=== PATIENT | female | born 1960 | race African-American/Black ===

== ENCOUNTER → 2016-08-02 | Outpatient (CLI) | payer MEDICAID | END | disposition home or self-care (01) | LOC: LABWHC1 07:11 | PROVIDERS: ATTEND Family Medicine | DX: E03.9 Hypothyroidism, unspecified (principal) | CPT/HCPCS: 36415; 84439; 84443 ==

== ENCOUNTER → 2016-08-02 | Outpatient (CLI) | payer MEDICAID ==
--- NOTE | 2016-08-03 09:31 | MM ---
Reason for exam: screening (asymptomatic). Last mammogram was performed 1 year and 1 month ago. History: Patient is postmenopausal. Family history of breast cancer in mother at age 53. Benign left mammotome panel of the left breast, July 26, 2010. Took hormonal contraceptives for 5 years beginning at age 22. Physical Findings: A clinical breast exam by your physician is recommended on an annual basis and results should be correlated with mammographic findings. MG Screening Mammo w CAD Bilateral CC and MLO view(s) were taken. Prior study comparison: June 21, 2015, bilateral MG 3d diag mammo w/cad JG. November 07, 2013, CAD bilateral diagnostic mammogram. There are scattered fibroglandular densities. There is no discrete abnormality. No significant changes when compared with prior studies. ASSESSMENT: Negative, BI-RAD 1 RECOMMENDATION: Routine screening mammogram of both breasts in 1 year.
== END | disposition home or self-care (01) ==
LOC: RADMAMWWP 06:53
PROVIDERS: ATTEND Family Medicine
DX: Z12.31 Encounter for screening mammogram for malignant neoplasm of breast (principal)

== ENCOUNTER → 2017-09-03 | Outpatient (CLI) | payer MEDICAID ==
--- NOTE | 2017-09-05 07:44 | MM ---
Reason for exam: screening (asymptomatic). Last mammogram was performed 1 year and 1 month ago. History: Patient is postmenopausal. Family history of breast cancer in mother at age 53. Benign left mammotome panel of the left breast, July 26, 2010. Took hormonal contraceptives for 5 years beginning at age 22. Physical Findings: A clinical breast exam by your physician is recommended on an annual basis and results should be correlated with mammographic findings. MG Screening Mammo w CAD Bilateral CC and MLO view(s) were taken. Prior study comparison: August 02, 2016, bilateral MG screening mammo w CAD. June 21, 2015, bilateral MG 3d diag mammo w/cad JG. The breast tissue is almost entirely fat. No suspicious abnormality. Left breast biopsy marker noted. No significant changes when compared with prior studies. ASSESSMENT: Negative, BI-RAD 1 RECOMMENDATION: Routine screening mammogram of both breasts in 1 year.
== END | disposition home or self-care (01) ==
LOC: RADMAMWWP 13:19
PROVIDERS: ATTEND Family Medicine
DX: Z12.31 Encounter for screening mammogram for malignant neoplasm of breast (principal)
CPT/HCPCS: 77067

== ENCOUNTER 2017-09-28 09:30 | Observation (INO) | payer MEDICAID ==
[2017-09-28] MEDS ORDERED: SODIUM CHLORIDE 0.9% 1,000 ML IV STA ×2 (10:02)
[2017-09-28] MEDS ORDERED: ASPIRIN 81 MG PO STA (10:02)
--- NOTE | 2017-09-28 10:07 | ED ---
URI HPI - General Source: patient, RN notes reviewed, old records reviewed Mode of arrival: wheelchair Limitations: no limitations <Susan Mackay - Last Filed: 09/28/17 12:31> <George Sawyer - Last Filed: 09/28/17 13:24> - General Chief Complaint: Upper Respiratory Infection Stated Complaint: FLU SYMPTOMS, CHEST PAIN Time Seen by Provider: 09/28/17 09:45 - History of Present Illness Initial Comments: This patient is a 57-year-old female presented to emergency Department chief complaint of cough congestion since Sunday. She went to [facility] on Sunday started on Levaquin, cough syrup and Claritin. She is told she has a sinus infection. They did no testing at that time. Patient reports that she started to develop some chest pain on Sunday as well. She reports it feels like a heaviness on her chest. She seems to related to different than just pain from coughing. Patient reports that she did take a nitro yesterday evening. She states that her cough has been nonproductive. 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 She states that she has history of hypertension and hyperlipidemia. No diabetes. No history of cardiac history of of herself at this time. Patient states that she has been thinks what dizzy lightheaded. She denies any specific abdominal pain, she has felt nauseated but has had no vomiting. She did have some diarrhea yesterday as well. (Susan Mackay) - Related Data Home Medications Medication Instructions Recorded Confirmed Ergocalciferol (Vitamin D2) 50,000 unit PO MO 01/25/15 09/28/17 [Drisdol] Multivitamins, Thera [Multivitamin 1 tab PO DAILY 01/25/15 09/28/17 (formulary)] Biotin 5 mg PO DAILY 09/28/17 09/28/17 Furosemide [Lasix] 40 mg PO DAILY 09/28/17 09/28/17 Levofloxacin [Levaquin] 500 mg PO DAILY 09/28/17 09/28/17 Levothyroxine Sodium [Synthroid] 175 mcg PO DAILY 09/28/17 09/28/17 Metoprolol Tartrate [Lopressor] 25 mg PO BID 09/28/17 09/28/17 Previous Rx's Medication Instructions Recorded Aspirin 81 mg PO DAILY #1 chewable 01/26/15 Nitroglycerin Sl Tabs [Nitrostat] 0.4 mg SUBLINGUAL Q5M PRN #25 tab 01/26/15 Allergies Allergy/AdvReac Type Severity Reaction Status Date / Time No Known Allergies Allergy Verified 09/28/17 10:16 Review of Systems ROS Other: All systems not noted in ROS Statement are negative. <Susan Mackay - Last Filed: 09/28/17 12:31> ROS Other: All systems not noted in ROS Statement are negative. <SilverioGeorge - Last Filed: 09/28/17 13:24> ROS Statement: Those systems with pertinent positive or pertinent negative responses have been documented in the HPI. Past Medical History Past Medical History: Chest Pain / Angina, GERD/Reflux, Hyperlipidemia, Sleep Apnea/CPAP/BIPAP, Thyroid Disorder Additional Past Medical History / Comment(s): 10/11/15 Pt presented to [facility] ER with having had chest pain yesterday, intermittent and retrosternal- a tightness. Pain started again this morning going across lower sternum. Pt is admitted with UA chest pain. Other HX: 12/2014 lexiscan stress test negative and echo showed preserved L ventricular function with EF 60-65%, sleep apnea with CPAP set at 12., cervical disc protrusion C2 and C3, colon polyps-hi grade dysplasia with removal, intermittent bilateral hand numbness and tingling, hypothyroidism, sinusitis, Salazar's Palsey yrs ago. History of Any Multi-Drug Resistant Organisms: None Reported Past Surgical History: Adenoidectomy, Breast Surgery, Hernia Repair, Hysterectomy, Tonsillectomy, Tubal Ligation Additional Past Surgical History / Comment(s): Umbilical hernia repair, colonoscopies with polypectomies, L breast core bx with microchipping. Past Anesthesia/Blood Transfusion Reactions: No Reported Reaction Past Psychological History: No Psychological Hx Reported Smoking Status: Current every day smoker Past Alcohol Use History: None Reported Past Drug Use History: None Reported - Past Family History Father Family Medical History: Cancer, Deep Vein Thrombosis (DVT), Vascular Disorder Additional Family Medical History / Comment(s): Father is alive and 89yrs old. He has had 2 cancers-sinus and pharyngeal. He has a peg tube. He has had bilateral carotid endartectomies, has jean-claude filter. Mother Family Medical History: Cancer Additional Family Medical History / Comment(s): Mother had breast cancer with mastectomy. She from a cancerous mass in her throat. <Susan Mackay - Last Filed: 09/28/17 12:31> General Exam Limitations: no limitations General appearance: alert, in no apparent distress Head exam: Present: atraumatic, normocephalic, normal inspection Eye exam: Present: normal appearance, PERRL, EOMI. Absent: scleral icterus, conjunctival injection, periorbital swelling ENT exam: Present: normal exam, mucous membranes moist Neck exam: Present: normal inspection. Absent: tenderness, meningismus, lymphadenopathy Respiratory exam: Present: normal lung sounds bilaterally, other (Patient has a significant cough. Lungs are clear to auscultation at this time.). Absent: respiratory distress, wheezes, rales, rhonchi, stridor Cardiovascular Exam: Present: regular rate, normal rhythm, normal heart sounds. Absent: systolic murmur, diastolic murmur, rubs, gallop, clicks GI/Abdominal exam: Present: soft, normal bowel sounds. Absent: distended, tenderness, guarding, rebound, rigid Extremities exam: Present: normal inspection, full ROM, normal capillary refill. Absent: tenderness, pedal edema, joint swelling, calf tenderness Back exam: Present: normal inspection Neurological exam: Present: alert, oriented X3, CN II-XII intact Psychiatric exam: Present: normal affect, normal mood Skin exam: Present: warm, dry, intact, normal color. Absent: rash <Susan Mackay - Last Filed: 09/28/17 12:31> <George Sawyer - Last Filed: 09/28/17 13:24> - General Exam Comments Initial Comments: This patient is a pleasant 57-year-old female. No distress. (Susan Mackay) Vital Signs 09/28/17 09/28/17 09:36 12:34 Temperature 97.7 F Pulse Rate 75 54 L Respiratory 18 18 Rate Blood Pressure 123/62 154/61 O2 Sat by Pulse 100 100 Oximetry Medical Decision Making - Lab Data Result diagrams: 09/28/17 10:27 09/28/17 10:27 - Radiology Data Radiology results: report reviewed <Susan Mackay - Last Filed: 09/28/17 12:31> - Lab Data Result diagrams: 09/28/17 10:27 09/28/17 10:27 <George Sawyer - Last Filed: 09/28/17 13:24> - Medical Decision Making This is a 57-year-old female with chief complaint of cough, and chest heaviness for the past week. Patient reports that the chest pain started on Sunday. She did take a nitro yesterday and thought she had some relief with it. At this time patient did have a significant cough however lungs are clear auscultation. Patient's lab work was all reviewed and within normal limits. Patient was given an aspirin. Patient's EKG shows no acute abnormalities. Troponins are negative. Chest x-ray shows negative for any acute process. Flu testing is negative. Patient continues to complain of chest heaviness. I will start the patient on Nitropaste. Discussed with Dr. Sawyer who will discuss with Dr. henley. [place] the patient for observation with serial troponins, and current cell with cardiology. Patient will be also treated as a bronchitis as well as continuing her by mouth antibiotics and breathing treatments. ( Susan Mackay) Patient was reevaluated and updated. Patient still had some mild heaviness in her chest. Chart was reviewed. Case was discussed in detail with Dr. Palma, who will admit for Dr. henley, covering for Dr. Iyer. (George Sawyer) - Lab Data Lab Results 09/28/17 09/28/17 09/28/17 Range/Units 10:27 10:27 10:27 WBC 5.5 (3.8-10.6) k/uL RBC 4.73 (3.80-5.40) m/uL Hgb 12.5 (11.4-16.0) gm/dL Hct 40.7 (34.0-46.0) % MCV 85.9 (80.0-100.0) fL MCH 26.4 (25.0-35.0) pg MCHC 30.7 L (31.0-37.0) g/dL RDW 14.0 (11.5-15.5) % Plt Count 206 (150-450) k/uL Neutrophils % 44 % Lymphocytes % 46 % Monocytes % 5 % Eosinophils % 2 % Basophils % 1 % Neutrophils # 2.4 (1.3-7.7) k/uL Lymphocytes # 2.5 (1.0-4.8) k/uL Monocytes # 0.3 (0-1.0) k/uL Eosinophils # 0.1 (0-0.7) k/uL Basophils # 0.0 (0-0.2) k/uL PT (9.0-12.0) sec INR (<1.2) APTT (22.0-30.0) sec D-Dimer (<0.60) mg/L FEU Sodium 143 (137-145) mmol/L Potassium 4.1 (3.5-5.1) mmol/L Chloride 104 (98-107) mmol/L Carbon Dioxide 27 (22-30) mmol/L Anion Gap 12 mmol/L BUN 12 (7-17) mg/dL Creatinine 0.92 (0.52-1.04) mg/dL Est GFR (MDRD) Af Amer >60 (>60 ml/min/1.73 sqM) Est GFR (MDRD) Non-Af >60 (>60 ml/min/1.73 sqM) Glucose 97 (74-99) mg/dL Plasma Lactic Acid Kelvin (0.7-2.0) mmol/L Calcium 9.7 (8.4-10.2) mg/dL Magnesium 1.9 (1.6-2.3) mg/dL Total Bilirubin 0.5 (0.2-1.3) mg/dL AST 19 (14-36) U/L ALT 25 (9-52) U/L Alkaline Phosphatase 107 (38-126) U/L Total Creatine Kinase 67 (30-135) U/L CK-MB (CK-2) <0.2 (0.0-2.4) ng/mL CK-MB (CK-2) Rel Index Troponin I <0.012 (0.000-0.034) ng/mL NT-Pro-B Natriuret Pep pg/mL Total Protein 7.2 (6.3-8.2) g/dL Albumin 4.1 (3.5-5.0) g/dL Influenza Type A RNA (Not Detectd) Influenza Type B (PCR) (Not Detectd) 09/28/17 09/28/17 09/28/17 Range/Units 10:27 10:27 10:27 WBC (3.8-10.6) k/uL RBC (3.80-5.40) m/uL Hgb (11.4-16.0) gm/dL Hct (34.0-46.0) % MCV (80.0-100.0) fL MCH (25.0-35.0) pg MCHC (31.0-37.0) g/dL RDW (11.5-15.5) % Plt Count (150-450) k/uL Neutrophils % % Lymphocytes % % Monocytes % % Eosinophils % % Basophils % % Neutrophils # (1.3-7.7) k/uL Lymphocytes # (1.0-4.8) k/uL Monocytes # (0-1.0) k/uL Eosinophils # (0-0.7) k/uL Basophils # (0-0.2) k/uL PT 10.0 (9.0-12.0) sec INR 1.0 (<1.2) APTT 27.5 (22.0-30.0) sec D-Dimer 0.41 (<0.60) mg/L FEU Sodium (137-145) mmol/L Potassium (3.5-5.1) mmol/L Chloride (98-107) mmol/L Carbon Dioxide (22-30) mmol/L Anion Gap mmol/L BUN (7-17) mg/dL Creatinine (0.52-1.04) mg/dL Est GFR (MDRD) Af Amer (>60 ml/min/1.73 sqM) Est GFR (MDRD) Non-Af (>60 ml/min/1.73 sqM) Glucose (74-99) mg/dL Plasma Lactic Acid Kelvin (0.7-2.0) mmol/L Calcium (8.4-10.2) mg/dL Magnesium (1.6-2.3) mg/dL Total Bilirubin (0.2-1.3) mg/dL AST (14-36) U/L ALT (9-52) U/L Alkaline Phosphatase (38-126) U/L Total Creatine Kinase (30-135) U/L CK-MB (CK-2) (0.0-2.4) ng/mL CK-MB (CK-2) Rel Index Troponin I (0.000-0.034) ng/mL NT-Pro-B Natriuret Pep 29 pg/mL Total Protein (6.3-8.2) g/dL Albumin (3.5-5.0) g/dL Influenza Type A RNA Not Detected (Not Detectd) Influenza Type B (PCR) Not Detected (Not Detectd) 09/28/17 Range/Units 10:27 WBC (3.8-10.6) k/uL RBC (3.80-5.40) m/uL Hgb (11.4-16.0) gm/dL Hct (34.0-46.0) % MCV (80.0-100.0) fL MCH (25.0-35.0) pg MCHC (31.0-37.0) g/dL RDW (11.5-15.5) % Plt Count (150-450) k/uL Neutrophils % % Lymphocytes % % Monocytes % % Eosinophils % % Basophils % % Neutrophils # (1.3-7.7) k/uL Lymphocytes # (1.0-4.8) k/uL Monocytes # (0-1.0) k/uL Eosinophils # (0-0.7) k/uL Basophils # (0-0.2) k/uL PT (9.0-12.0) sec INR (<1.2) APTT (22.0-30.0) sec D-Dimer (<0.60) mg/L FEU Sodium (137-145) mmol/L Potassium (3.5-5.1) mmol/L Chloride (98-107) mmol/L Carbon Dioxide (22-30) mmol/L Anion Gap mmol/L BUN (7-17) mg/dL Creatinine (0.52-1.04) mg/dL Est GFR (MDRD) Af Amer (>60 ml/min/1.73 sqM) Est GFR (MDRD) Non-Af (>60 ml/min/1.73 sqM) Glucose (74-99) mg/dL Plasma Lactic Acid Kelvin 1.1 (0.7-2.0) mmol/L Calcium (8.4-10.2) mg/dL Magnesium (1.6-2.3) mg/dL Total Bilirubin (0.2-1.3) mg/dL AST (14-36) U/L ALT (9-52) U/L Alkaline Phosphatase (38-126) U/L Total Creatine Kinase (30-135) U/L CK-MB (CK-2) (0.0-2.4) ng/mL CK-MB (CK-2) Rel Index Troponin I (0.000-0.034) ng/mL NT-Pro-B Natriuret Pep pg/mL Total Protein (6.3-8.2) g/dL Albumin (3.5-5.0) g/dL Influenza Type A RNA (Not Detectd) Influenza Type B (PCR) (Not Detectd) 09/28/17 11:22 Patient's EKG performed at 1008 shows normal sinus rhythm with a normal EKG. Ventricular rate of [address] interval 120 ms. QRS ration 86 no seconds. QT QTc is 394/418 ms. (Susan Mackay) - Radiology Data Chest x-ray is negative for any acute process. (Susan Mackay) Disposition Time of Disposition: 12:34 <Susan Mackay - Last Filed: 09/28/17 12:31> <George Sawyer - Last Filed: 09/28/17 13:24> Clinical Impression: Chest pain, Bronchitis, Unstable angina pectoris Disposition: ADMITTED IP TO THIS HOSP Condition: Stable Referrals: Jason Iyer DO [Primary Care Provider] - 1-2 days
[2017-09-28 10:45] LABS: Basophils % (A) 1 %; Eosinophils # (A) 0.1 k/uL (0-0.7); Eosinophils % (A) 2 %; HCT 40.7 % (34.0-46.0); HGB 12.5 gm/dL (11.4-16.0); Lymphocytes # (A) 2.5 k/uL (1.0-4.8); Lymphocytes % (A) 46 %; MCH 26.4 pg (25.0-35.0); MCHC 30.7 g/dL (31.0-37.0); MCV 85.9 fL (80.0-100.0); Mean Platelet Volume 8.3; Monocytes # (A) 0.3 k/uL (0-1.0); Monocytes % (A) 5 %; Neutrophils # (A) 2.4 k/uL (1.3-7.7); Neutrophils % (A) 44 %; Platelet Count 206 k/uL (150-450); RBC 4.73 m/uL (3.80-5.40); WBC 5.5 k/uL (3.8-10.6)
[2017-09-28 10:56] LABS: ALT 25 U/L (9-52); AST 19 U/L (14-36); Albumin 4.1 g/dL (3.5-5.0); Alkaline Phosphatase 107 U/L (38-126); Anion Gap 12 mmol/L; Blood Urea Nitrogen 12 mg/dL (7-17); Calcium 9.7 mg/dL (8.4-10.2); Carbon Dioxide 27 mmol/L (22-30); Chloride 104 mmol/L (98-107); Glucose 97 mg/dL (74-99); Potassium 4.1 mmol/L (3.5-5.1); Sodium 143 mmol/L (137-145); Total Bilirubin 0.5 mg/dL (0.2-1.3); Total Protein 7.2 g/dL (6.3-8.2)
[2017-09-28 10:57] LABS: D-Dimer 0.41 mg/L FEU (<0.60); Partial Thromboplastin Time 27.5 sec (22.0-30.0)
[2017-09-28 11:11] LABS: Creatine Kinase 67 U/L (30-135)
--- NOTE | 2017-09-28 11:21 | XR ---
EXAMINATION TYPE: XR chest 2V DATE OF EXAM: 09/28/2017 COMPARISON: 10/11/2015 TECHNIQUE: PA and lateral views submitted. HISTORY: Cough and flulike symptoms FINDINGS: The lungs are clear and there is no pneumothorax, pleural effusion, or focal pneumonia. Arthropathy of the right shoulder noted. Correlate for chronic rotator cuff disease. Atrophic change of the spin e. IMPRESSION: 1. No acute process.
[2017-09-28 11:23] LABS: Creatine Kinase MB <0.2 ng/mL (0.0-2.4); Troponin I <0.012 ng/mL (0.000-0.034)
[2017-09-28] MEDS ORDERED: PROMETHAZ-COD 6.25-10 MG/5 ML 5 ML CUP PO STA (11:23)
[2017-09-28] MEDS ORDERED: MORPHINE SULFATE 4 MG/ML SYRINGE IV PRN (12:34)
[2017-09-28] MEDS ORDERED: NITROGLYCERIN SL TABS 0.4 MG TAB SUBLINGUAL PRN (12:34)
[2017-09-28] MEDS ORDERED: MORPHINE ORAL SOLN 10 MG/5 ML CUP PO PRN (14:32)
[2017-09-28] MEDS ORDERED: LEVOFLOXACIN 500 MG TAB PO SCH (15:00)
[2017-09-28] MEDS: NITROGLYCERIN OINT 1 INCH/GM PACKET TOPICAL SCH ×2 (15:01→18:32)
[2017-09-28] MEDS: ALBUTEROL NEBULIZED 2.5 MG/3 ML INHALATION SCH ×3 (15:25→19:02)
[2017-09-28 16:39] LABS: Creatine Kinase 62 U/L (30-135)
[2017-09-28 16:52] LABS: Creatine Kinase MB <0.2 ng/mL (0.0-2.4); Troponin I <0.012 ng/mL (0.000-0.034)
[2017-09-28] MEDS ORDERED: ALBUTEROL NEBULIZED 2.5 MG/3 ML INHALATION PRN (18:45)
[2017-09-28] MEDS: METOPROLOL TARTRATE 25 MG TAB PO SCH (20:01)
[2017-09-28] MEDS ORDERED: ATORVASTATIN 10 MG TAB PO SCH (21:00)
--- NOTE | 2017-09-28 21:59 | HP ---
HISTORY AND PHYSICAL DATE OF SERVICE: 09/28/2017 CHIEF COMPLAINTS: Chest pain and upper respiratory infection. HISTORY OF PRESENT ILLNESS: This 57-year-old woman with a past medical history of multiple medical problems including chest pain, GERD, hyperlipidemia, history of sleep apnea, history of adenoidectomy, history of breast surgery, history of nicotine dependence being followed by Dr. Iyer in the outpatient setting, not feeling well over the past several days according to her. The patient is having a cough and congestion since Sunday. The patient is taking Levaquin and Claritin. Today the patient does have heaviness in the chest which is increasing with coughing and the patient came to [facility] and admitted to the hospital further evaluation and treatment. On admission the EKG was done which showed nonspecific ST-T changes and the chest x-ray was normal. The patient had a previous stress test and the basic labs and troponins are normal. Influenza is negative. Patient admitted for further evaluation and treatment. There is no history of fever, rigors, chills. No history of headache or loss of conscious or seizures. PAST MEDICAL HISTORY: History of GERD, hyperlipidemia, sleep apnea, hypothyroidism. MEDICATIONS: Home medications are: 1. Lipitor 10 mg q.h.s. 2. Nitrostat 0.4 sublingual p.r.n. 3. Multivitamins supplements. 4. Lopressor 25 mg p.o. b.i.d. 5. Synthroid 117 mcg p.o. daily. 6. Levaquin 500 mg. 7. Lasix 40 mg. 8. Vitamin D2 50,000 p.o. Sunday. 9. Biotin 5 mg. 10.Aspirin 81 mg p.o. daily. ALLERGIES: None. FAMILY HISTORY: History of cancer, DVT, vascular disease in the family. SOCIAL HISTORY: History of smoking currently. No history of alcohol intake. REVIEW OF SYSTEMS: ENT: No diminished hearing or vision. Cardiovascular: S1, S2 muffled. Respiratory: Breath sounds diminished in the bases. GI: As mentioned earlier. : No dysuria. Central nervous system: No numbness or weakness. ALLERGY/IMMUNOLOGY: No asthma or hayfever. Musculoskeletal: As mentioned earlier. HEMATOLOGY/ONCOLOGY: No history of anemia. Endocrine: No nausea or vomiting, diabetes, hypothyroidism. CONSTITUTIONAL: As mentioned earlier. Dermatology: Negative. Rheumatology: Negative. Psychiatric: as mentioned earlier. EXAMINATION: The patient is alert and oriented times three. Pulse 63, blood pressure 120/60, respiration 17, temp 98.2, pulse ox 100% on room air. HEENT conjunctivae normal. Oral mucosa moist. Neck is no jugular venous distention. No carotid bruit. No lymph node enlargement. Cardiovascular: S1, S2, no S3, no S4. Respiratory: Breath sounds diminished in the bases. A few rhonchi and no crackles. ABDOMEN: Soft, nontender. No mass palpable. Legs: No edema and no swelling. NERVOUS SYSTEM: Higher functions as mentioned earlier. Moves all 4 limbs. No focal motor or sensory deficits. Lymphatics: No lymph nodes palpable in the neck, axillae or groin. Skin no ulcer, rash or bleeding. LABS: WBC 5.5, hemoglobin 12.5. CMP within normal limits. ASSESSMENT: 1. Chest pain possible unstable angina rule out pleuritic pain. 2. Upper respiratory infection recently. 3. History of gastroesophageal reflux disease. 4. Hyperlipidemia. 5. Sleep apnea. 6. Hypothyroidism. 7. Degenerative joint disease. 8. History of nicotine dependence. RECOMMENDATIONS AND DISCUSSION: This 57-year-old woman who presented with multiple complex medical issues, we will monitor the patient closely. Rule out myocardial infarction. Cardiology consultation. Possible stress test. Guarded prognosis because of multiple complex medical issues. Further recommendations to follow. MMODL / IJN: [id number] /
[2017-09-28 22:47] LABS: Creatine Kinase 60 U/L (30-135)
[2017-09-28 23:01] LABS: Creatine Kinase MB <0.2 ng/mL (0.0-2.4); Troponin I <0.012 ng/mL (0.000-0.034)
[2017-09-29] MEDS: NITROGLYCERIN OINT 1 INCH/GM PACKET TOPICAL SCH ×2 (00:18→04:37)
[2017-09-29 01:13] LABS: Cholesterol 213 mg/dL (<200); HDL Cholesterol 27 mg/dL (40-60); LDL Cholesterol,Calculated 144 mg/dL (0-99); Triglycerides 208 mg/dL (<150)
[2017-09-29] MEDS ORDERED: LEVOTHYROXINE 100 MCG TAB PO SCH (06:30)
[2017-09-29] MEDS ORDERED: LEVOTHYROXINE 75 MCG TAB PO SCH (06:30)
[2017-09-29] MEDS ORDERED: NON-FORMULARY DRUG (Levothyroxine Sodium [Synthroid] 175 MCG) PO SCH (09:00)
[2017-09-29] MEDS ORDERED: FUROSEMIDE 40 MG TAB PO SCH (09:00)
[2017-09-29] MEDS ORDERED: ASPIRIN 325 MG TAB PO SCH (09:00)
[2017-09-29] MEDS ORDERED: NON-FORMULARY DRUG (Biotin [Biotin] 5 MG) PO SCH (09:00)
--- NOTE | 2017-09-29 09:35 | P.CRDCN ---
History of Present Illness Consult date: 09/29/17 Requesting physician: Selam Palma Consult reason: chest pain Chief complaint: Chest pain History of present illness: This is a pleasant 57-year-old -B[place] female with history of nicotine dependence, hyperlipidemia, family history of premature coronary artery disease , sleep apnea, GERD, hypothyroidism, patient is also known to have mild coronary artery disease, cardiac catheterization was performed in January 2015 which revealed a 40% stenosis involving the mid RCA. She follows regularly with Dr. Mendoza in the office. Patient presents to the hospital with symptoms of chest pressure and heaviness, she states that she's been dealing with a cold recently, she's been coughing, fever and chills at home, episode of diarrhea as well. She does work at [employer], she states a lot of people there have influenza and upper respiratory infection right now. Patient states she is unsure as to whether a heaviness in her chest is related to her cold or if it's heart related. She does state that the pain worsens with deep breathing, pleuritic in nature. Influenza A and B screen were negative on arrival here. Cholesterol 213, LDL 144, triglycerides 208, HDL 27. Troponins 3 have been negative. Magnesium 1.9. Sodium 143, potassium 4.1, BUN 12, creatinine 0.9. CBC is normal. D-dimer is 0.41. Chest x-ray did not reveal any acute process. EKG shows normal sinus rhythm with no acute changes. At the time of my examination this morning, she continues to be quite congested, continues to have chest heaviness, worse with deep breathing and coughing. Past Medical History Past Medical History: Chest Pain / Angina, GERD/Reflux, Hyperlipidemia, Sleep Apnea/CPAP/BIPAP, Thyroid Disorder Additional Past Medical History / Comment(s): : 12/2014 lexiscan stress test negative and echo showed preserved L ventricular function with EF 60-65%, sleep apnea with CPAP set at 12 but has'nt been using.., cervical disc protrusion C2 and C3, colon polyps-hi grade dysplasia with removal, intermittent bilateral hand numbness and tingling, hypothyroidism, sinusitis, Salazar's Palsey yrs ago. History of Any Multi-Drug Resistant Organisms: None Reported Past Surgical History: Adenoidectomy, Breast Surgery, Heart Catheterization, Hernia Repair, Hysterectomy, Tonsillectomy, Tubal Ligation Additional Past Surgical History / Comment(s): Umbilical hernia repair, colonoscopies with polypectomies, L breast core bx with microchipping. Past Anesthesia/Blood Transfusion Reactions: No Reported Reaction Smoking Status: Current every day smoker - Past Family History Father Family Medical History: Cancer, Deep Vein Thrombosis (DVT), Vascular Disorder Additional Family Medical History / Comment(s): Father is alive and 89yrs old. He has had 2 cancers-sinus and pharyngeal. He has a peg tube. He has had bilateral carotid endartectomies, has jean-claude filter. Mother Family Medical History: Cancer Additional Family Medical History / Comment(s): Mother had breast cancer with mastectomy. She from a cancerous mass in her throat. Medications and Allergies Home Medications Medication Instructions Recorded Confirmed Type Ergocalciferol (Vitamin D2) 50,000 unit PO MO 01/25/15 09/28/17 History [Drisdol] Multivitamins, Thera [Multivitamin 1 tab PO DAILY 01/25/15 09/28/17 History (formulary)] Aspirin 81 mg PO DAILY #1 chewable 01/26/15 09/28/17 Rx Nitroglycerin Sl Tabs [Nitrostat] 0.4 mg SUBLINGUAL Q5M PRN #25 tab 01/26/1509/16 Rx Atorvastatin [Lipitor] 10 mg PO HS 09/28/17 09/28/17 History Biotin 5 mg PO DAILY 09/28/17 09/28/17 History Furosemide [Lasix] 40 mg PO DAILY 09/28/17 09/28/17 History Levofloxacin [Levaquin] 500 mg PO DAILY 09/28/17 09/28/17 History Levothyroxine Sodium [Synthroid] 175 mcg PO DAILY 09/28/17 09/28/17 History Metoprolol Tartrate [Lopressor] 25 mg PO BID 09/28/17 09/28/17 History Allergies Allergy/AdvReac Type Severity Reaction Status Date / Time No Known Allergies Allergy Verified 09/28/17 10:16 Physical Exam Vitals: Vital Signs Temp Pulse Pulse Pulse Resp BP BP 09/29/17 08:00 97.5 F L 60 57 L 18 113/62 09/29/17 04:00 97.9 F 57 L 18 109/51 09/28/17 23:38 62 18 09/28/17 22:06 65 18 98/53 09/28/17 20:00 57 L 16 09/28/17 19:13 72 09/28/17 19:12 98.9 F 63 17 125/63 09/28/17 19:02 76 09/28/17 16:00 67 17 09/28/17 15:49 97.7 F 67 17 130/72 09/28/17 15:34 80 09/28/17 15:27 80 09/28/17 14:56 98.4 F 80 18 119/60 09/28/17 13:55 98.4 F 78 18 115/68 09/28/17 12:34 54 L 18 154/61 09/28/17 09:36 97.7 F 75 18 123/62 Pulse Ox 09/29/17 08:00 100 09/29/17 04:00 99 09/28/17 23:38 09/28/17 22:06 98 09/28/17 20:00 09/28/17 19:13 09/28/17 19:12 100 09/28/17 19:02 09/28/17 16:00 09/28/17 15:49 96 09/28/17 15:34 09/28/17 15:27 09/28/17 14:56 98 09/28/17 13:55 98 09/28/17 12:34 100 09/28/17 09:36 100 Intake and Output 09/28/17 09/29/17 09/29/17 22:59 06:59 14:59 Other: Voiding Method Toilet Toilet Toilet # Voids 1 3 Weight 120.3 kg PHYSICAL EXAMINATION: HEENT: Head is atraumatic, normocephalic. Pupils equal, round. Neck is supple. There is no elevated jugular venous pressure. HEART EXAMINATION: Heart S1, S2 normal. No murmur or gallop heard. CHEST EXAMINATION: Lungs are clear to auscultation and precussion. No chest wall tenderness is noted on palpation or with deep breathing. ABDOMEN: Soft, nontender. Bowel sounds are heard. No organomegaly noted. EXTREMITIES: 2+ peripheral pulses with no evidence of peripheral edema and no calf tenderness noted. NEUROLOGIC patient is awake, alert and oriented -3. . Results 09/28/17 10:27 09/28/17 10:27 Cardiac Enzymes 09/28/17 09/28/17 09/28/17 Range/Units 10:27 10:27 15:55 AST 19 (14-36) U/L CK-MB (CK-2) <0.2 <0.2 (0.0-2.4) ng/mL Troponin I <0.012 <0.012 (0.000-0.034) ng/mL 09/28/17 Range/Units 22:13 AST (14-36) U/L CK-MB (CK-2) <0.2 (0.0-2.4) ng/mL Troponin I <0.012 (0.000-0.034) ng/mL Coagulation 09/28/17 Range/Units 10:27 PT 10.0 (9.0-12.0) sec APTT 27.5 (22.0-30.0) sec Lipids 09/28/17 Range/Units 10:27 Triglycerides 208 H (<150) mg/dL Cholesterol 213 H (<200) mg/dL HDL Cholesterol 27 L (40-60) mg/dL CBC 09/28/17 Range/Units 10:27 WBC 5.5 (3.8-10.6) k/uL RBC 4.73 (3.80-5.40) m/uL Hgb 12.5 (11.4-16.0) gm/dL Hct 40.7 (34.0-46.0) % Plt Count 206 (150-450) k/uL Comprehensive Metabolic Panel 09/28/17 Range/Units 10:27 Sodium 143 (137-145) mmol/L Potassium 4.1 (3.5-5.1) mmol/L Chloride 104 (98-107) mmol/L Carbon Dioxide 27 (22-30) mmol/L BUN 12 (7-17) mg/dL Creatinine 0.92 (0.52-1.04) mg/dL Glucose 97 (74-99) mg/dL Calcium 9.7 (8.4-10.2) mg/dL AST 19 (14-36) U/L ALT 25 (9-52) U/L Alkaline Phosphatase 107 (38-126) U/L Total Protein 7.2 (6.3-8.2) g/dL Albumin 4.1 (3.5-5.0) g/dL Current Medications Generic Name Dose Route Start Last Admin Trade Name Freq PRN Reason Stop Dose Admin Albuterol Sulfate 2.5 mg 09/28/17 20:00 09/28/17 19:02 Ventolin Nebulized INHALATION 2.5 mg RT-TID LATOSHA Administration Albuterol Sulfate 2.5 mg 09/28/17 18:45 Ventolin Nebulized INHALATION RT-Q2H PRN Shortness Of Breath Or Wheezing Aspirin 325 mg 09/29/17 09:00 Aspirin PO DAILY [facility] Atorvastatin Calcium 10 mg 09/28/17 21:00 09/28/17 20:01 Lipitor PO 10 mg HS [facility] Administration Ergocalciferol 50,000 unit 10/01/17 12:00 Vitamin D2 PO Mo@1200 [facility] Furosemide 40 mg 09/29/17 09:00 Lasix PO DAILY [facility] Levofloxacin 500 mg 09/28/17 15:00 09/28/17 16:08 Levaquin PO 10/05/17 15:01 Not Given DAILY@1500 [facility] Levothyroxine Sodium 100 mcg 09/29/17 06:30 09/29/17 04:50 Synthroid PO Not Given DAILY@0630 [facility] Levothyroxine Sodium 75 mcg 09/29/17 06:30 09/29/17 06:45 Synthroid PO Not Given DAILY@0630 [facility] Metoprolol Tartrate 25 mg 09/28/17 21:00 09/28/17 20:01 Lopressor PO 25 mg BID [facility] Administration Morphine Sulfate 12 mg 09/28/17 14:32 Morphine Oral Migdalia 2mg/Ml PO Q5M PRN Chest Pain Multivitamins 1 each 09/29/17 12:00 Theragran PO 1200 [facility] Nitroglycerin 1 inch 09/28/17 12:45 09/29/17 04:37 Nitro-Bid Oint TOPICAL Not Given Q6HR [facility] Nitroglycerin 0.4 mg 09/28/17 12:34 Nitrostat SUBLINGUAL Q5M PRN Chest Pain Intake and Output 09/28/17 09/29/17 09/29/17 22:59 06:59 14:59 Other: Voiding Method Toilet Toilet Toilet # Voids 1 3 Weight 120.3 kg 09/28/17 10:27 09/28/17 10:27 EKG Interpretations (text) EKG shows normal sinus rhythm with no acute changes. Assessment and Plan Plan: Assessment and plan #1 atypical chest pain, pleuritic in nature. Troponins negative 3. EKG shows normal sinus rhythm with no acute changes. #2 upper respiratory infection, influenza negative #3 mild coronary artery disease, cardiac catheterization performed 2014 revealed a 40% lesion in the RCA. #4 hyperlipidemia # 5 sleep apnea #6 nicotine dependence #7 hypothyroidism #8 GERD Plan We will decrease aspirin to 81 mg daily, increased dose of Lipitor, discontinue her Nitropaste, and once the patient's respiratory symptoms improved, perform stress test. Obtain Echocardiogram with Doppler study. DNP note has been reviewed, I agree with a documented findings and plan of care. Patient was seen and examined.
[2017-09-29] MEDS: ALBUTEROL NEBULIZED 2.5 MG/3 ML INHALATION SCH ×2 (10:14→13:07)
[2017-09-29] MEDS: METOPROLOL TARTRATE 25 MG TAB PO SCH (10:20)
[2017-09-29 11:26] VITALS: BMI 42.7
[2017-09-29] MEDS ORDERED: MULTIVITAMINS, THERA 1 EACH TAB PO SCH (12:00)
[2017-09-29 12:11] VITALS: BP 119/75; TEMP 98.1
--- NOTE | 2017-09-29 13:14 | ECHOF ---
Referral Reason:chest pain MEASUREMENTS -------- HEIGHT: 167.6 cm WEIGHT: 120.2 kg BP: 113/62 IVSd: 1.3 cm (0.6 - 1.1) LVIDd: 3.6 cm (3.9 - 5.3) LVPWd: 1.3 cm (0.6 - 1.1) EDV(Teich): 55 ml IVSs: 1.5 cm LVIDs: 1.8 cm LVPWs: 1.6 cm ESV(Teich): 9 ml EF(Teich): 83 % %FS: 51 % SV(Teich): 45 ml Ao asc: 3.0 cm RVIDd: 2.8 cm (< 3.3) LALs A4C: 5.9 cm LAAs A4C: 19.6 cm LAESV A-L A4C: 55 ml LAESV MOD A4C: 51 ml LALs A2C: 6.4 cm LAAs A2C: 20.8 cm LAESV A-L A2C: 57 ml LAESV MOD A2C: 54 ml LAESV(A-L): 59 ml LAESV Index (A-L): 26.20 ml/m Ao Diam: 2.9 cm (2.0 - 3.7) LA Diam: 3.9 cm (2.7 - 3.8) AV Cusp: 1.7 cm (1.5 - 2.6) EPSS: 0.5 cm MV E Aleksandar: 1.18 m/s MV DecT: 239 ms MV Dec Vigo: 5.0 m/s MV A Aleksandar: 0.64 m/s MV E/A Ratio: 1.86 AV Vmax: 1.35 m/s AV maxP.24 mmHg TR Vmax: 2.31 m/s TR maxP.35 mmHg RAP: 5.00 mmHg RVSP: 26.35 mmHg MV EF SLOPE: 165.27 mm/s (70 - 150) MV EXCURSION: 2.10 cm (> 18.000) FINDINGS -------- Resting bradycardia (HR<60bpm). This was a technically adequate study. The left ventricular size is normal. There is mild concentric left ventricular hypertrophy. Overa ll left ventricular systolic function is normal with, an EF between 55 - 60 %. The right ventricle is normal in size and function. Normal LA size by volume 22+/-6 ml/m2. The right atrium is normal in size. The aortic valve is trileaflet, and appears structurally normal. No aortic stenosis or regurgitation. The mitral valve leaflets are mildly thickened. There is trace to mild mitral regurgitation. Trace tricuspid regurgitation present. Right ventricular systolic pressure is normal at < 35 mmHg. There is no evidence of pulmonary hypertension. Trace/mild (physiologic) pulmonic regurgitation. The aortic root size is normal. IVC Not well visulized. The pericardium is normal. There is no pericardial effusion. CONCLUSIONS -------- 1. Resting bradycardia (HR<60bpm). 2. This was a technically adequate study. 3. The left ventricular size is normal. 4. There is mild concentric left ventricular hypertrophy. 5. Overall left ventricular systolic function is normal with, an EF between 55 - 60 %. 6. Normal LA size by volume 22+/-6 ml/m2. 7. The aortic valve is trileaflet, and appears structurally normal. No aortic stenosis or regurgitati on. 8. The mitral valve leaflets are mildly thickened. 9. There is trace to mild mitral regurgitation. 10. Trace tricuspid regurgitation present. 11. Right ventricular systolic pressure is normal at < 35 mmHg. 12. There is no evidence of pulmonary hypertension. 13. Trace/mild (physiologic) pulmonic regurgitation. 14. The aortic root size is normal. 15. IVC Not well visulized. 16. There is no pericardial effusion. VISE HAND: Dm Alvarenga RDCS
[2017-09-29 13:18] VITALS: PULSE 56; RESP 16
--- NOTE | 2017-09-29 23:39 | DS ---
DISCHARGE SUMMARY DATE OF SERVICE: 09/29/2017 FINAL DIAGNOSES: 1. Chest pain possibly musculoskeletal and pleuritic pain myocardial infarction ruled out. 2. infection recently. 3. Gastroesophageal reflux disease. 4. History of hyperlipidemia. 5. Sleep apnea. 6. Hypothyroidism. 7. History of degenerative joint disease. 8. Nicotine dependence. DISCHARGE DISPOSITION: The patient is being discharged in stable condition with guarded prognosis. HISTORY OF PRESENT ILLNESS: This 57-year-old woman with a past medical history of multiple medical problems was admitted with chest pain, myocardial infarction ruled out. Cardiology saw the patient. 2D echo with Doppler was done which showed no acute abnormality. Mild valvular abnormalities noted. Ejection fraction 50-60%. Outpatient stress test recommended. The patient discharged in stable condition with guarded prognosis. Lipitor dose increase because of persistent hyperlipidemia. On exam, vital signs stable. Cardiovascular: S1, S2. Abdomen soft nontender. Central nervous system: No focal deficits. DISCHARGE ADVICE AND MEDICATIONS: 1. Diet is cardiac diet. Low-fat cholesterol diet. 2. Activity limited until follow up. 3. Aspirin 81 mg p.o. daily. 4. Lipitor 40 mg p.o. daily. 5. Biotin 5 mg p.o. daily. 6. Vitamin D2 50,000 p.o. Sunday. 7. Lasix 40 mg p.o. daily. 8. Levaquin 500 mg p.o. daily, to finish dose. 9. Synthroid 100 mcg p.o. daily. 10.Metoprolol 25 mg p.o. b.i.d. 11.Multivitamins one p.o. daily. 12.Nitro 0.4 sublingual p.r.n. Follow up with Dr. 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 MMODL / IJN: [id number] / MTDD
[2017-09-30] MEDS ORDERED: ASPIRIN 81 MG PO SCH (09:00)
[2017-09-30] MEDS ORDERED: ATORVASTATIN 40 MG TAB PO SCH (09:00)
[2017-10-01] MEDS ORDERED: ERGOCALCIFEROL 50,000 UNIT CAP PO SCH (12:00)
== END 2017-09-29 14:31 | disposition home or self-care (01) ==
LOC: EC 09:30 → 3OBS 12:34
PROVIDERS: ADMIT Hospitalist; ATTEND Hospitalist
DX: R07.89 Other chest pain (principal); R07.2 Precordial pain; R42 Dizziness and giddiness; R19.7 Diarrhea, unspecified; K21.9 Gastro-esophageal reflux disease without esophagitis; E78.5 Hyperlipidemia, unspecified; I10 Essential (primary) hypertension; G47.30 Sleep apnea, unspecified; J06.9 Acute upper respiratory infection, unspecified; E03.9 Hypothyroidism, unspecified; M19.90 Unspecified osteoarthritis, unspecified site; F17.200 Nicotine dependence, unspecified, uncomplicated; I25.10 Atherosclerotic heart disease of native coronary artery without angina pectoris; G51.0 Bell's palsy; Z79.82 Long term (current) use of aspirin; Z79.899 Other long term (current) drug therapy; Z80.3 Family history of malignant neoplasm of breast; Z83.2 Family history of diseases of the blood and blood-forming organs and certain disorders involving the immune mechanism; Z80.8 Family history of malignant neoplasm of other organs or systems; E07.9 Disorder of thyroid, unspecified; Z86.010 Personal history of colon polyps; R20.0 Anesthesia of skin; R20.2 Paresthesia of skin; M50.20 Other cervical disc displacement, unspecified cervical region
CPT/HCPCS: 99285; 96360 ×2; 96361 ×5; 36415; 94640 ×3; 93005; 93306; 85379; 83880; 80061; 80053; 82550; 82553; 83605; 83735; 84484; 85025; 85610; 85730; 87040; 87502; 71046; G0378 ×2

== ENCOUNTER → 2017-10-20 | Outpatient (CLI) | payer MEDICAID ==
[2017-10-20 11:11] LABS: Basophils # (A) 0.1 k/uL (0-0.2); Basophils % (A) 1 %; Eosinophils # (A) 0.2 k/uL (0-0.7); Eosinophils % (A) 2 %; HCT 42.3 % (34.0-46.0); HGB 13.3 gm/dL (11.4-16.0); Lymphocytes # (A) 3.4 k/uL (1.0-4.8); Lymphocytes % (A) 42 %; MCH 27.2 pg (25.0-35.0); MCHC 31.4 g/dL (31.0-37.0); MCV 86.7 fL (80.0-100.0); Mean Platelet Volume 8.3; Monocytes # (A) 0.3 k/uL (0-1.0); Monocytes % (A) 4 %; Neutrophils # (A) 3.9 k/uL (1.3-7.7); Neutrophils % (A) 48 %; Platelet Count 238 k/uL (150-450); RBC 4.88 m/uL (3.80-5.40); RDW 13.7 % (11.5-15.5); WBC 8.1 k/uL (3.8-10.6)
[2017-10-20 11:16] LABS: Calcium 10.1 mg/dL (8.4-10.2); Potassium 4.4 mmol/L (3.5-5.1)
[2017-10-20 11:32] LABS: T4, Free (Free Thyroxine) 1.68 ng/dL (0.78-2.19)
== END | disposition home or self-care (01) ==
LOC: LABWHC1 10:38
PROVIDERS: ATTEND Family Medicine
DX: E78.5 Hyperlipidemia, unspecified (principal); E03.9 Hypothyroidism, unspecified; I10 Essential (primary) hypertension; R53.83 Other fatigue
CPT/HCPCS: 36415; 80048; 82550; 84439; 84443; 84450; 84460; 85025

== ENCOUNTER → 2018-03-22 | Outpatient (CLI) | payer MEDICAID ==
[2018-03-22 10:33] LABS: HCT 41.6 % (34.0-46.0); HGB 12.5 gm/dL (11.4-16.0); Hypochromasia Moderate; MCH 26.6 pg (25.0-35.0); MCV 88.7 fL (80.0-100.0); Mean Platelet Volume 8.3; Platelet Count 246 k/uL (150-450); RDW 14.1 % (11.5-15.5)
[2018-03-22 11:08] LABS: Calcium 9.3 mg/dL (8.4-10.2); Potassium 4.2 mmol/L (3.5-5.1)
[2018-03-22 11:24] LABS: T4, Free (Free Thyroxine) 0.74 ng/dL (0.78-2.19)
== END | disposition home or self-care (01) ==
LOC: LABWHC1 09:30
PROVIDERS: ATTEND Family Medicine
DX: I10 Essential (primary) hypertension (principal); E78.2 Mixed hyperlipidemia; E03.9 Hypothyroidism, unspecified; E55.9 Vitamin D deficiency, unspecified
CPT/HCPCS: 36415; 80048; 80061; 82306; 82550; 84439; 84443; 84450; 84460; 85027

== ENCOUNTER → 2018-04-05 | Outpatient (CLI) | payer MEDICAID ==
--- NOTE | 2018-04-05 14:01 | ECHOS ---
STRESS ECHOCARDIOGRAM INDICATIONS: Chest pain MEDICATIONS: Metoprolol, Synthroid, Crestor, aspirin, Lasix BASELINE HEART RATE: 56 BASELINE BLOOD PRESSURE: 158/50 MAXIMUM HEART RATE: 151 MAXIMUM BLOOD PRESSURE: 208/76 85% MPHR: 139 100% MPHR: 164 METS: 7.1 MAXIMUM STAGE REACHED: 2 TOTAL EXERCISE TIME: 5:30 CLINICAL INFORMATION: Patient was exercised for a total period of 5 minutes and 30 seconds. The peak heart rate of 151 was achieved. Maximum blood pressure of 208/76 mmHg was noted. Resting EKG shows normal sinus rhythm with normal WI interval and QRS duration with normal ST-T waves. During exercise, about [address]-segment depression is noted without any symptoms of angina. No dysrhythmias are noted. In the immediate postexercise period, upsloping ST segments were noted. The baseline echocardiographic images reveals normal left ventricular chamber size with normal left ventricular systolic function in the immediate post exercise period. Normal increase in the wall thickness and contractility was noted. FINAL IMPRESSION: 1. This exercise test shows about [address]-segment depression which could be suggestive of ischemia or secondary to hypertension. Clinical correlation is suggested. 2. Patient's stress test was terminated because of the shortness of breath. 3. The stress echocardiographic study does not show any wall motion abnormality to suggest stress-induced ischemia. MMODL / IJN: [id number] /
== END | disposition home or self-care (01) ==
LOC: RADNMMAIN 09:17
PROVIDERS: ATTEND Internal Medicine Interventional Cardiology
DX: R94.31 Abnormal electrocardiogram [ECG] [EKG] (principal); I25.10 Atherosclerotic heart disease of native coronary artery without angina pectoris
CPT/HCPCS: 93351

== ENCOUNTER → 2018-05-09 | Outpatient (CLI) | payer MEDICAID ==
[2018-05-09 09:06] LABS: T4, Free (Free Thyroxine) 1.34 ng/dL (0.78-2.19)
== END ==
LOC: LABWHC1 07:33
PROVIDERS: ATTEND Family Medicine
DX: E03.9 Hypothyroidism, unspecified (principal)
CPT/HCPCS: 36415; 84439; 84443

== ENCOUNTER 2018-05-11 11:37 | Emergency (ER) | payer MEDICAID ==
[2018-05-11 11:53] VITALS: BP 130/80; PULSE 56; RESP 18; TEMP 98.6
[2018-05-11] MEDS ORDERED: SODIUM CHLORIDE 0.9% 1,000 ML IV ONE (12:13)
[2018-05-11] MEDS ORDERED: SODIUM CHLORIDE 0.9% 1,000 ML IV SCH (12:15)
--- NOTE | 2018-05-11 12:15 | ED ---
Chest Pain HPI - General Chief Complaint: Chest Pain Stated Complaint: heavy chest Time Seen by Provider: 05/11/18 12:01 Source: patient, RN notes reviewed, old records reviewed Mode of arrival: wheelchair Limitations: no limitations - History of Present Illness Initial Comments: This Patient is a 58-year-old female presents emergency murmurs today with 3 days of palpitations and heaviness in her chest. She states that she's had increased shortness of breath. Patient reports that she did have her thyroid level checked a few weeks ago and they were off. Patient states that they did upper thyroid medication. Patient states that she is a smoker. She has history of hyperlipidemia and hypertension. Patient states that she did have an outpatient stress echo earlier this season. Patient states that she's had discomfort. - Related Data Home Medications Medication Instructions Recorded Confirmed Ergocalciferol (Vitamin D2) 50,000 unit PO MO 01/25/15 05/11/18 [Drisdol] Biotin 5 mg PO DAILY 09/28/17 05/11/18 Furosemide [Lasix] 40 mg PO DAILY 09/28/17 05/11/18 Levothyroxine Sodium 150 mcg PO DAILY 05/11/18 05/11/18 Metoprolol Tartrate [Lopressor] 50 mg PO BID 05/11/18 05/11/18 Rosuvastatin Calcium [Crestor] 5 mg PO MOWEFR 05/11/18 05/11/18 Previous Rx's Medication Instructions Recorded Aspirin 81 mg PO DAILY #1 chewable 01/26/15 Nitroglycerin Sl Tabs [Nitrostat] 0.4 mg SUBLINGUAL Q5M PRN #25 tab 01/26/15 Allergies Allergy/AdvReac Type Severity Reaction Status Date / Time No Known Allergies Allergy Verified 05/11/18 13:18 Review of Systems ROS Statement: Those systems with pertinent positive or pertinent negative responses have been documented in the HPI. ROS Other: All systems not noted in ROS Statement are negative. EKG Findings - EKG Comments: EKG Findings:: EKG performed at 12:15 shows sinus bradycardia otherwise normal EKG noted. Ventricular rate of 54 bpm. MN interval is 134 ms. QRS duration is 86 most seconds. QT QTc is 440/417 ms. Past Medical History Past Medical History: Chest Pain / Angina, GERD/Reflux, Hyperlipidemia, Sleep Apnea/CPAP/BIPAP, Thyroid Disorder Additional Past Medical History / Comment(s): : 12/2014 lexiscan stress test negative and echo showed preserved L ventricular function with EF 60-65%, sleep apnea with CPAP set at 12 but has'nt been using.., cervical disc protrusion C2 and C3, colon polyps-hi grade dysplasia with removal, intermittent bilateral hand numbness and tingling, hypothyroidism, sinusitis, Salazar's Palsey yrs ago. History of Any Multi-Drug Resistant Organisms: None Reported Past Surgical History: Adenoidectomy, Breast Surgery, Heart Catheterization, Hernia Repair, Hysterectomy, Tonsillectomy, Tubal Ligation Additional Past Surgical History / Comment(s): Umbilical hernia repair, colonoscopies with polypectomies, L breast core bx with microchipping. Past Anesthesia/Blood Transfusion Reactions: No Reported Reaction Past Psychological History: No Psychological Hx Reported Smoking Status: Current every day smoker Past Alcohol Use History: None Reported Past Drug Use History: None Reported - Past Family History Father Family Medical History: Cancer, Deep Vein Thrombosis (DVT), Vascular Disorder Additional Family Medical History / Comment(s): Father is alive and 89yrs old. He has had 2 cancers-sinus and pharyngeal. He has a peg tube. He has had bilateral carotid endartectomies, has jean-claude filter. Mother Family Medical History: Cancer Additional Family Medical History / Comment(s): Mother had breast cancer with mastectomy. She from a cancerous mass in her throat. General Exam - General Exam Comments Initial Comments: This Patient is a 58-year-old -[place] female. female. Alert and oriented. No acute distress. Limitations: no limitations General appearance: alert, in no apparent distress Head exam: Present: atraumatic, normocephalic, normal inspection Eye exam: Present: normal appearance, PERRL, EOMI. Absent: scleral icterus, conjunctival injection, periorbital swelling ENT exam: Present: normal exam, mucous membranes moist Neck exam: Present: normal inspection. Absent: tenderness, meningismus, lymphadenopathy Respiratory exam: Present: normal lung sounds bilaterally. Absent: respiratory distress, wheezes, rales, rhonchi, stridor Cardiovascular Exam: Present: regular rate, normal rhythm, normal heart sounds. Absent: systolic murmur, diastolic murmur, rubs, gallop, clicks GI/Abdominal exam: Present: soft, normal bowel sounds. Absent: distended, tenderness, guarding, rebound, rigid Back exam: Present: normal inspection Neurological exam: Present: alert, oriented X3, CN II-XII intact Psychiatric exam: Present: normal affect, normal mood Skin exam: Present: warm, dry, intact, normal color. Absent: rash Course Vital Signs 05/11/18 11:49 Temperature 98.6 F Pulse Rate 56 L Respiratory 18 Rate Blood Pressure 130/80 O2 Sat by Pulse 100 Oximetry Chest Pain MDM - MDM This 58 year-old reveal evidence of a with chest heaviness shortness of breath. Patient's initial EKG and lab work was reviewed and unremarkable. Chest x-ray shows no evidence of any acute process. She reports any symptoms of past 3 days. I did discuss the concerns for multiple risk factors as well as the chest heaviness that she's describing there be further cared back workup completed. I did want to admit Patient for further cardiac evaluation. Patient is adamant she wants to be discharged home. I discussed that she will be signing AGAINST MEDICAL ADVICE. Discussed strict return parameters. Patient states she plans follow-up with Dr. Mendoza next week. Disposition Clinical Impression: Unstable angina pectoris Disposition: Left Against Medical Advice Condition: Stable Additional Instructions: Follow-up with cardiology. Return to the emergency department if any alarming signs or symptoms occur. Is patient prescribed a controlled substance at d/c from ED?: No Referrals: Jason Iyer DO [Primary Care Provider] - 1-2 days Time of Disposition: 14:42
[2018-05-11 13:44] LABS: Basophils % (A) 0 %; Eosinophils # (A) 0.2 k/uL (0-0.7); Eosinophils % (A) 3 %; HCT 40.9 % (34.0-46.0); HGB 12.6 gm/dL (11.4-16.0); Hypochromasia Slight; Lymphocytes # (A) 2.8 k/uL (1.0-4.8); Lymphocytes % (A) 43 %; MCH 27.1 pg (25.0-35.0); MCHC 30.7 g/dL (31.0-37.0); MCV 88.3 fL (80.0-100.0); Mean Platelet Volume 8.4; Monocytes # (A) 0.2 k/uL (0-1.0); Monocytes % (A) 4 %; Neutrophils # (A) 3.1 k/uL (1.3-7.7); Neutrophils % (A) 48 %; Platelet Count 218 k/uL (150-450); RBC 4.64 m/uL (3.80-5.40); RDW 14.3 % (11.5-15.5); WBC 6.6 k/uL (3.8-10.6)
[2018-05-11 13:47] LABS: Albumin 4.2 g/dL (3.5-5.0); Calcium 9.8 mg/dL (8.4-10.2); Potassium 3.9 mmol/L (3.5-5.1); Total Bilirubin 0.5 mg/dL (0.2-1.3); Total Protein 7.6 g/dL (6.3-8.2)
[2018-05-11 13:48] LABS: Partial Thromboplastin Time 28.2 sec (22.0-30.0); Prothrombin Time 9.6 sec (9.0-12.0)
--- NOTE | 2018-05-11 13:53 | XR ---
EXAMINATION TYPE: XR chest 2V DATE OF EXAM: 05/11/2018 HISTORY: Pain. REFERENCE: Previous study dated 09/28/2017. FINDINGS: The lungs are clear. Pleural spaces are clear. The heart is not enlarged. IMPRESSION: NO ACUTE INTRATHORACIC ABNORMALITY.
[2018-05-11 14:00] LABS: Creatine Kinase 100 U/L (30-135)
[2018-05-11 14:13] LABS: Creatine Kinase MB 0.3 ng/mL (0.0-2.4); Troponin I <0.012 ng/mL (0.000-0.034)
[2018-05-11 14:48] LABS: T4, Free (Free Thyroxine) 1.04 ng/dL (0.78-2.19)
== END 2018-05-11 14:56 | disposition left against medical advice (07) ==
LOC: EC 11:37
DX: I20.0 Unstable angina (principal); K21.9 Gastro-esophageal reflux disease without esophagitis; E78.5 Hyperlipidemia, unspecified; I10 Essential (primary) hypertension; E03.9 Hypothyroidism, unspecified; F17.200 Nicotine dependence, unspecified, uncomplicated; G47.30 Sleep apnea, unspecified; Z99.89 Dependence on other enabling machines and devices; Z95.818 Presence of other cardiac implants and grafts; Z82.49 Family history of ischemic heart disease and other diseases of the circulatory system; Z79.899 Other long term (current) drug therapy
CPT/HCPCS: 36415; 71046; 80053; 82550; 82553; 83880; 84439; 84443; 84484; 85025; 85610; 85730; 93005; 96360; 96361; 99285

== ENCOUNTER 2018-05-17 13:10 | Inpatient (IN) | payer MEDICAID ==
--- NOTE | 2018-05-17 13:58 | ED ---
General Adult HPI - General Chief complaint: Chest Pain Stated complaint: chest pain Time Seen by Provider: 05/17/18 13:22 Source: patient, RN notes reviewed, old records reviewed Mode of arrival: ambulatory Limitations: no limitations - History of Present Illness Initial comments: 58-year-old female presented for evaluation of chest pain. Patient has had ongoing chest pain for the past 1-1/2 weeks. She was evaluated emergency department, and recommended that the patient stay for cardiology evaluation, she declined at that time. She is presenting today with same complaint. Central chest pain and tightness which is worse with exertion. She does have some cough and mild dyspnea. No diaphoresis. No vomiting. Patient has had previous cardiac evaluation and was noted to have some minimal CAD according to the patient. No stent. Denies abdominal pain. Denies lower extremity pain or swelling. - Related Data Home Medications Medication Instructions Recorded Confirmed Ergocalciferol (Vitamin D2) 50,000 unit PO MO 01/25/15 05/17/18 [Drisdol] Biotin 5 mg PO DAILY 09/28/17 05/17/18 Furosemide [Lasix] 40 mg PO DAILY 09/28/17 05/17/18 Levothyroxine Sodium 150 mcg PO MOTUWETHFRSA 05/11/18 05/17/18 Metoprolol Tartrate [Lopressor] 50 mg PO BID 05/11/18 05/17/18 Rosuvastatin Calcium [Crestor] 5 mg PO MOWEFR 05/11/18 05/17/18 Levothyroxine Sodium 75 mcg PO STORY 05/17/18 05/17/18 Previous Rx's Medication Instructions Recorded Aspirin 81 mg PO DAILY #1 chewable 01/26/15 Nitroglycerin Sl Tabs [Nitrostat] 0.4 mg SUBLINGUAL Q5M PRN #25 tab 01/26/15 Allergies Allergy/AdvReac Type Severity Reaction Status Date / Time No Known Allergies Allergy Verified 05/17/18 14:14 Review of Systems ROS Statement: Those systems with pertinent positive or pertinent negative responses have been documented in the HPI. ROS Other: All systems not noted in ROS Statement are negative. Past Medical History Past Medical History: Chest Pain / Angina, GERD/Reflux, Hyperlipidemia, Sleep Apnea/CPAP/BIPAP, Thyroid Disorder Additional Past Medical History / Comment(s): : 12/2014 lexiscan stress test negative and echo showed preserved L ventricular function with EF 60-65%, sleep apnea with CPAP set at 12 but has'nt been using.., cervical disc protrusion C2 and C3, colon polyps-hi grade dysplasia with removal, intermittent bilateral hand numbness and tingling, hypothyroidism, sinusitis, Salazar's Palsey yrs ago. History of Any Multi-Drug Resistant Organisms: None Reported Past Surgical History: Adenoidectomy, Breast Surgery, Heart Catheterization, Hernia Repair, Hysterectomy, Tonsillectomy, Tubal Ligation Additional Past Surgical History / Comment(s): Umbilical hernia repair, colonoscopies with polypectomies, L breast core bx with microchipping. Past Anesthesia/Blood Transfusion Reactions: No Reported Reaction Past Psychological History: No Psychological Hx Reported Smoking Status: Current every day smoker Past Alcohol Use History: None Reported Past Drug Use History: None Reported - Past Family History Father Family Medical History: Cancer, Deep Vein Thrombosis (DVT), Vascular Disorder Additional Family Medical History / Comment(s): Father is alive and 89yrs old. He has had 2 cancers-sinus and pharyngeal. He has a peg tube. He has had bilateral carotid endartectomies, has jean-claude filter. Mother Family Medical History: Cancer Additional Family Medical History / Comment(s): Mother had breast cancer with mastectomy. She from a cancerous mass in her throat. General Exam Limitations: no limitations General appearance: alert, in no apparent distress Head exam: Present: atraumatic, normocephalic Eye exam: Present: normal appearance, PERRL ENT exam: Present: normal exam Neck exam: Present: normal inspection. Absent: tenderness, meningismus Respiratory exam: Present: normal lung sounds bilaterally. Absent: respiratory distress, wheezes Cardiovascular Exam: Present: normal rhythm, bradycardia GI/Abdominal exam: Present: soft. Absent: distended, tenderness Extremities exam: Present: normal inspection, normal capillary refill. Absent: tenderness, pedal edema, calf tenderness Neurological exam: Present: alert, oriented X3, CN II-XII intact. Absent: motor sensory deficit Psychiatric exam: Present: normal affect, normal mood Skin exam: Present: warm, dry, intact. Absent: cyanosis, diaphoretic Course Vital Signs 05/17/18 05/17/18 13:14 14:30 Temperature 98.1 F Pulse Rate 56 L 49 L Respiratory 18 21 Rate Blood Pressure 177/82 158/71 O2 Sat by Pulse 99 100 Oximetry EKG Findings - EKG Comments: EKG Findings:: EKG: Sinus bradycardia, rate 54, W[place] interval 132, QRS duration 88 , QTC 432, no ST segment elevation Medical Decision Making - Medical Decision Making 56-year-old female presented for evaluation chest pain. Patient was seen in the emergency department with the last week with central chest pain. She left AGAINST MEDICAL ADVICE to time. She is presenting for reevaluation today. His had ongoing symptoms. EKG shows sinus bradycardia, no definitive signs of ischemia. Chest x-ray negative for acute cardiac disease. CBC within normal limits, normal white blood cell count, stable hemoglobin, CMP is remarkable for mild elevation in AST and ALTs although patient has no vomiting, no epigastric or right upper quadrant abdominal pain. Troponin is negative. Patient will be kept in observation for serial cardiac enzymes, telemetry, and cardiology consultation. She is chest pain-free throughout her time in the emergency department. - Lab Data Result diagrams: 05/17/18 13:30 05/17/18 13:30 Lab Results 05/17/18 05/17/18 05/17/18 Range/Units 13:30 13:30 13:30 WBC 9.4 (3.8-10.6) k/uL RBC 4.63 (3.80-5.40) m/uL Hgb 13.2 (11.4-16.0) gm/dL Hct 40.7 (34.0-46.0) % MCV 88.0 (80.0-100.0) fL MCH 28.4 (25.0-35.0) pg MCHC 32.3 (31.0-37.0) g/dL RDW 14.2 (11.5-15.5) % Plt Count 248 (150-450) k/uL Neutrophils % Not Reportable Neutrophils % (Manual) 43 % Lymphocytes % Not Reportable Lymphocytes % (Manual) 52 % Monocytes % Not Reportable Monocytes % (Manual) 2 % Eosinophils % Not Reportable Eosinophils % (Manual) 2 % Basophils % Not Reportable Metamyelocytes % 1 % Neutrophils # Not Reportable Neutrophils # (Manual) 4.04 (1.3-7.7) k/uL Lymphocytes # Not Reportable Lymphocytes # (Manual) 4.89 H (1.0-4.8) k/uL Monocytes # Not Reportable Monocytes # (Manual) 0.19 (0-1.0) k/uL Eosinophils # Not Reportable Eosinophils # (Manual) 0.19 (0-0.7) k/uL Basophils # Not Reportable Metamyelocytes # (Man) 0.09 H (0) k/uL Nucleated RBCs 0 (0-0) /100 WBC Manual Slide Review Performed Hypochromasia Slight PT (9.0-12.0) sec INR (<1.2) APTT (22.0-30.0) sec Sodium 143 (137-145) mmol/L Potassium 3.6 (3.5-5.1) mmol/L Chloride 105 (98-107) mmol/L Carbon Dioxide 27 (22-30) mmol/L Anion Gap 11 mmol/L BUN 13 (7-17) mg/dL Creatinine 0.86 (0.52-1.04) mg/dL Est GFR (CKD-EPI)AfAm 88 (>60 ml/min/1.73 sqM) Est GFR (CKD-EPI)NonAf 76 (>60 ml/min/1.73 sqM) Glucose 111 H (74-99) mg/dL Calcium 9.9 (8.4-10.2) mg/dL Magnesium 1.9 (1.6-2.3) mg/dL Total Bilirubin 0.5 (0.2-1.3) mg/dL AST 44 H (14-36) U/L ALT 55 H (9-52) U/L Alkaline Phosphatase 101 (38-126) U/L Total Creatine Kinase 126 (30-135) U/L CK-MB (CK-2) 0.4 (0.0-2.4) ng/mL CK-MB (CK-2) Rel Index 0.3 Troponin I <0.012 (0.000-0.034) ng/mL NT-Pro-B Natriuret Pep pg/mL Total Protein 7.7 (6.3-8.2) g/dL Albumin 4.3 (3.5-5.0) g/dL 05/17/18 05/17/18 Range/Units 13:30 13:30 WBC (3.8-10.6) k/uL RBC (3.80-5.40) m/uL Hgb (11.4-16.0) gm/dL Hct (34.0-46.0) % MCV (80.0-100.0) fL MCH (25.0-35.0) pg MCHC (31.0-37.0) g/dL RDW (11.5-15.5) % Plt Count (150-450) k/uL Neutrophils % Neutrophils % (Manual) % Lymphocytes % Lymphocytes % (Manual) % Monocytes % Monocytes % (Manual) % Eosinophils % Eosinophils % (Manual) % Basophils % Metamyelocytes % % Neutrophils # Neutrophils # (Manual) (1.3-7.7) k/uL Lymphocytes # Lymphocytes # (Manual) (1.0-4.8) k/uL Monocytes # Monocytes # (Manual) (0-1.0) k/uL Eosinophils # Eosinophils # (Manual) (0-0.7) k/uL Basophils # Metamyelocytes # (Man) (0) k/uL Nucleated RBCs (0-0) /100 WBC Manual Slide Review Hypochromasia PT 9.8 (9.0-12.0) sec INR 1.0 (<1.2) APTT 26.6 (22.0-30.0) sec Sodium (137-145) mmol/L Potassium (3.5-5.1) mmol/L Chloride (98-107) mmol/L Carbon Dioxide (22-30) mmol/L Anion Gap mmol/L BUN (7-17) mg/dL Creatinine (0.52-1.04) mg/dL Est GFR (CKD-EPI)AfAm (>60 ml/min/1.73 sqM) Est GFR (CKD-EPI)NonAf (>60 ml/min/1.73 sqM) Glucose (74-99) mg/dL Calcium (8.4-10.2) mg/dL Magnesium (1.6-2.3) mg/dL Total Bilirubin (0.2-1.3) mg/dL AST (14-36) U/L ALT (9-52) U/L Alkaline Phosphatase (38-126) U/L Total Creatine Kinase (30-135) U/L CK-MB (CK-2) (0.0-2.4) ng/mL CK-MB (CK-2) Rel Index Troponin I (0.000-0.034) ng/mL NT-Pro-B Natriuret Pep 102 pg/mL Total Protein (6.3-8.2) g/dL Albumin (3.5-5.0) g/dL Disposition Clinical Impression: Chest pain Disposition: ADMITTED IP TO THIS HOSP Condition: Stable Is patient prescribed a controlled substance at d/c from ED?: No Referrals: Jason Iyer DO [Primary Care Provider] - 1-2 days Decision to Admit Reason: Admit from EC Decision Date: 05/17/18 Decision Time: 15:50
[2018-05-17 14:04] LABS: HCT 40.7 % (34.0-46.0); HGB 13.2 gm/dL (11.4-16.0); Hypochromasia Slight; MCH 28.4 pg (25.0-35.0); MCHC 32.3 g/dL (31.0-37.0); Platelet Count 248 k/uL (150-450); RBC 4.63 m/uL (3.80-5.40); RDW 14.2 % (11.5-15.5); WBC 9.4 k/uL (3.8-10.6)
--- NOTE | 2018-05-17 14:14 | XR ---
EXAMINATION TYPE: XR chest 2V DATE OF EXAM: 05/17/2018 COMPARISON: Prior chest 05/11/2018 HISTORY: Bradycardia, chest pain TECHNIQUE: Frontal and lateral views of the chest are obtained. FINDINGS: There is no focal air space opacity, pleural effusion, or pneumothorax seen. The cardiac silhouette size is within normal limits. The osseous structures are intact. There are overlying car diac leads. There may be a spinal curvature. IMPRESSION: No acute cardiopulmonary process.
[2018-05-17 14:16] LABS: Albumin 4.3 g/dL (3.5-5.0); Calcium 9.9 mg/dL (8.4-10.2); Magnesium 1.9 mg/dL (1.6-2.3); Potassium 3.6 mmol/L (3.5-5.1); Total Bilirubin 0.5 mg/dL (0.2-1.3); Total Protein 7.7 g/dL (6.3-8.2)
[2018-05-17 14:19] LABS: Partial Thromboplastin Time 26.6 sec (22.0-30.0); Prothrombin Time 9.8 sec (9.0-12.0)
[2018-05-17 14:27] LABS: Creatine Kinase 126 U/L (30-135)
[2018-05-17 14:35] LABS: Eosinophils # (M) 0.19 k/uL (0-0.7); Lymphocytes # (M) 4.89 k/uL (1.0-4.8); Metamyelocytes # (M) 0.09 k/uL (0); Metamyelocytes % 1 %; Monocytes # (M) 0.19 k/uL (0-1.0); Neutrophils # (M) 4.04 k/uL (1.3-7.7); Neutrophils % (M) 43 %; Nucleated Red Blood Cells 0 /100 WBC (0-0); Total Cells Counted 100
[2018-05-17 14:39] LABS: Creatine Kinase MB 0.4 ng/mL (0.0-2.4); Troponin I <0.012 ng/mL (0.000-0.034)
[2018-05-17] MEDS ORDERED: ASPIRIN 325 MG TAB PO STA (15:45)
[2018-05-17] MEDS ORDERED: ACETAMINOPHEN TAB 325 MG TAB PO PRN (15:46)
[2018-05-17] MEDS ORDERED: ONDANSETRON 4 MG/2 ML VIAL IVP PRN (15:46)
[2018-05-17] MEDS ORDERED: NALOXONE 0.4 MG/ML 1 ML VIAL IV PRN (15:46)
[2018-05-17] MEDS ORDERED: MORPHINE SULFATE 4 MG/ML SYRINGE IV PRN (15:46)
[2018-05-17] MEDS ORDERED: NITROGLYCERIN SL TABS 0.4 MG TAB SUBLINGUAL PRN (15:47)
[2018-05-17] MEDS ORDERED: ATORVASTATIN 10 MG TAB PO SCH (16:00)
[2018-05-17 21:07] LABS: Creatine Kinase 110 U/L (30-135)
[2018-05-17 21:21] LABS: Creatine Kinase MB 0.3 ng/mL (0.0-2.4); Troponin I <0.012 ng/mL (0.000-0.034)
[2018-05-17] MEDS ORDERED: TEMAZEPAM 15 MG CAP PO PRN (22:10)
[2018-05-17] MEDS ORDERED: ALPRAZolam 0.25 MG TAB PO PRN (22:10)
--- NOTE | 2018-05-18 01:19 | HP ---
HISTORY AND PHYSICAL DATE OF SERVICE: 05/17/2018. CHIEF COMPLAINT: Chest discomfort. HISTORY OF PRESENT ILLNESS: This 58-year-old woman with a past medical history of multiple medical problems including chest pain, GERD, hypertension, hyperlipidemia, being followed by Dr. Iyer in the outpatient setting, had a stress test in 2014, which was negative. Currently the patient is complaining of chest pain for the last 1-1/2 weeks. Chest discomfort is felt in the anterior part of the chest, which was burning in character. The patient also had bradycardia. The patient is being admitted for further evaluation and treatment. Patient also complains of tightness of the chest also. There is no history of fever or rigors. No history of headache, loss of consciousness, seizures. PAST MEDICAL HISTORY: History of GERD, hypertension, hyperlipidemia, history of sleep apnea, history of chest pain and angina, history of cardiac catheterization. MEDICATIONS: Prior to admission include: 1. Pravastatin 5 mg Sunday, Sunday, Sunday. 2. Nitrostat p.r.n. 3. Lopressor 50 mg b.i.d. 4. Levothyroxine 75 mcg p.o. Sunday and 150 mg p.o. Sunday, Sunday, Sunday, , Sunday, Sunday. 5. Lasix 40 mg. 6. Drisdol 50,000 Sunday. 7. Biotin 5 mg p.o. daily. 8. Aspirin 81 mg p.o. daily. ALLERGIES: None family. FAMILY HISTORY: History of cancer, DVT, vascular disorder. SOCIAL HISTORY: History of smoking. No history of alcohol intake. REVIEW OF SYSTEMS: ENT: No diminished hearing. CARDIOVASCULAR: As mentioned. GI: As mentioned. : No dysuria. NERVOUS SYSTEM: No numbness or weakness. ALLERGY/IMMUNOLOGY: As mentioned. HEMATOLOGY: As mentioned. ENDOCRINE: Hypothyroidism. CONSTITUTIONAL: As mentioned. RHEUMATOLOGY: Negative. PSYCHIATRY: As mentioned. PHYSICAL EXAMINATION: Alert, oriented x3. Pulse 56, blood pressure is 153/70, respirations 20, temperature normal, pulse ox 100 percent room air. HEENT: Conjunctivae normal. Oral mucosa moist. NECK: No jugular venous distention. No lymph node enlargement. CARDIOVASCULAR: S1 and S2 muffled. LUNGS: Breath sounds diminished at the bases. No rhonchi, no crackles. ABDOMEN: Soft, nontender. No mass palpable. LEGS: No edema, no swelling. NERVOUS SYSTEM: Higher functions as mentioned earlier. Moves all for limbs. LYMPHATIC: No lymphadenopathy. SKIN: No ulcers or rashes. LABS: EKG showed sinus bradycardia, otherwise other labs are CBC within normal limits, glucose 111. AST and ALT mildly elevated. ASSESSMENT: 1. Chest pain, possible unstable angina. 2. Increased AST and ALT. 3. Hypertension. 4. Hyperlipidemia. 5. Sleep apnea. 6. History of hypothyroidism. 7. History of adenoidectomy. 8. FULL CODE. RECOMMENDATIONS: In this 58-year-old woman who presented with multiple complex medical issues, we will monitor the patient closely, continue the current management and current medications, continue home medications. Rule out myocardial infarction. We will hold the metoprolol at this time and continue the rest of medications. Repeat labs in the morning. We will also obtain a TSH as well. Further recommendations to follow. MMKAR / ZACN: [id number] /
[2018-05-18 02:07] LABS: T4, Free (Free Thyroxine) 1.01 ng/dL (0.78-2.19)
[2018-05-18 02:45] LABS: Basophils % (A) 0 %; Eosinophils # (A) 0.2 k/uL (0-0.7); Eosinophils % (A) 3 %; HCT 37.5 % (34.0-46.0); HGB 11.8 gm/dL (11.4-16.0); Lymphocytes # (A) 3.8 k/uL (1.0-4.8); Lymphocytes % (A) 54 %; MCH 27.7 pg (25.0-35.0); MCHC 31.5 g/dL (31.0-37.0); MCV 87.8 fL (80.0-100.0); Mean Platelet Volume 8.4; Monocytes # (A) 0.2 k/uL (0-1.0); Monocytes % (A) 3 %; Neutrophils # (A) 2.6 k/uL (1.3-7.7); Neutrophils % (A) 37 %; Platelet Count 203 k/uL (150-450); RBC 4.27 m/uL (3.80-5.40); RDW 14.4 % (11.5-15.5); WBC 6.9 k/uL (3.8-10.6)
[2018-05-18 03:09] LABS: Anion Gap 8 mmol/L; Blood Urea Nitrogen 14 mg/dL (7-17); Calcium 9.3 mg/dL (8.4-10.2); Carbon Dioxide 26 mmol/L (22-30); Chloride 106 mmol/L (98-107); Glucose 99 mg/dL (74-99); Potassium 3.6 mmol/L (3.5-5.1); Sodium 140 mmol/L (137-145)
[2018-05-18 03:11] LABS: Creatine Kinase 94 U/L (30-135)
[2018-05-18 03:24] LABS: Creatine Kinase MB 0.3 ng/mL (0.0-2.4); Troponin I <0.012 ng/mL (0.000-0.034)
[2018-05-18] MEDS: LEVOTHYROXINE 75 MCG TAB PO SCH (06:08)
[2018-05-18] MEDS: FUROSEMIDE 40 MG TAB PO SCH (08:33)
[2018-05-18] MEDS: ASPIRIN 81 MG PO SCH (08:33)
[2018-05-18] MEDS: HEPARIN SODIUM,PORCINE 5,000 UNIT/ML 1 ML VIAL SQ SCH ×2 (08:33→21:23)
--- NOTE | 2018-05-18 09:18 | P.CRDCN ---
History of Present Illness Consult date: 05/18/18 Requesting physician: Selam Palma Reason for Consult (text): chest pain Chief complaint: exertional shortness of breath, chest heaviness and low heart rate History of present illness: This is a pleasant 58-year-old -[place] female patient who follows with Dr. Mendoza in the office. She has history of hypothyroidism, hypertension and lipidemia, hypertension and known intermediate disease involving the mid RCA phone and cardiac catheterization done 2014. She's been having recurrent chest heaviness and shortness of breath with activity. She's also noticed her heart rate to be running a low as well as into the 30s at times. She is currently on metoprolol titrate 50 mg by mouth twice a day at home. She did recently undergo a stress echocardiogram that showed [address] depression to be related to ischemia or hypertension but no echocardiographic evidence of ischemia. EKG shows sinus bradycardia. Troponins have been negative 3. TSH is 7.68 with a free T4 1 0.01. Chest x-ray showed no acute cardiopulmonary process. On examination, patient is sitting up at the side of the bed. She denies current complaints of chest heaviness or shortness of breath. She does verbalize that she feels her heart rate drops with activity. Past Medical History Past Medical History: Chest Pain / Angina, GERD/Reflux, Hyperlipidemia, Hypertension, Sleep Apnea/CPAP/BIPAP, Thyroid Disorder Additional Past Medical History / Comment(s): : 12/2014 lexiscan stress test negative and echo showed preserved L ventricular function with EF 60-65%, sleep apnea with CPAP set at 12 but has'nt been using.., cervical disc protrusion C2 and C3"spurs", colon polyps-hi grade dysplasia with removal, intermittent bilateral hand numbness and tingling, hypothyroidism, sinusitis, Salazar's Palsey yrs ago.emphysema, arthritis, History of Any Multi-Drug Resistant Organisms: None Reported Past Surgical History: Adenoidectomy, Breast Surgery, Heart Catheterization, Hernia Repair, Hysterectomy, Tonsillectomy, Tubal Ligation Additional Past Surgical History / Comment(s): Umbilical hernia repair, colonoscopies with polypectomies, L breast core bx with microchipping.partial hysterectomy, 1 dental implant upper lest side. Past Anesthesia/Blood Transfusion Reactions: No Reported Reaction Smoking Status: Current every day smoker - Past Family History Father Family Medical History: Cancer, Deep Vein Thrombosis (DVT), Vascular Disorder Additional Family Medical History / Comment(s): Father is alive and 89yrs old. He has had 2 cancers-sinus and pharyngeal. He has a peg tube. He has had bilateral carotid endartectomies, has jean-claude filter. Mother Family Medical History: Cancer Additional Family Medical History / Comment(s): Mother had breast cancer with mastectomy. She from a cancerous mass in her throat. Medications and Allergies Home Medications Medication Instructions Recorded Confirmed Type Ergocalciferol (Vitamin D2) 50,000 unit PO MO 01/25/15 05/17/18 History [Drisdol] Aspirin 81 mg PO DAILY #1 chewable 01/26/15 05/17/18 Rx Nitroglycerin Sl Tabs [Nitrostat] 0.4 mg SUBLINGUAL Q5M PRN #25 tab 01/26/15 Rx Biotin 5 mg PO DAILY 09/28/17 05/17/18 History Furosemide [Lasix] 40 mg PO DAILY 09/28/17 05/17/18 History Levothyroxine Sodium 150 mcg PO MOTUWETHFRSA 05/11/18 05/17/18 History Metoprolol Tartrate [Lopressor] 50 mg PO BID 05/11/18 05/17/18 History Rosuvastatin Calcium [Crestor] 5 mg PO MOWEFR 05/11/18 05/17/18 History Levothyroxine Sodium 75 mcg PO STORY 05/17/18 05/17/18 History Allergies Allergy/AdvReac Type Severity Reaction Status Date / Time No Known Allergies Allergy Verified 05/17/18 14:14 Physical Exam Vitals: Vital Signs Temp Pulse Pulse Resp BP BP Pulse Ox 05/18/18 03:50 97.5 F L 52 L 18 137/63 97 05/18/18 00:00 96.9 F L 50 L 18 154/67 97 05/17/18 20:20 96.9 F L 54 L 18 154/74 96 05/17/18 19:30 56 L 17 97 05/17/18 18:30 57 L 22 153/73 05/17/18 18:00 49 L 20 147/75 100 05/17/18 17:00 48 L 19 152/75 99 05/17/18 16:00 48 L 19 143/76 100 10/19/18 15:30 46 L 22 154/69 100 05/17/18 15:00 51 L 21 156/84 99 05/17/18 14:30 49 L 21 158/71 100 05/17/18 13:14 98.1 F 56 L 18 177/82 99 Intake and Output 05/17/18 05/18/18 05/18/18 22:59 06:59 14:59 Intake Total 50 Balance 50 Intake: Amount of Fluid Infused ( 50 ml) Other: # Voids 1 Weight 119.6 kg PHYSICAL EXAMINATION: HEENT: Head is atraumatic, normocephalic. Pupils equal, round. Neck is supple. There is no elevated jugular venous pressure. HEART EXAMINATION: Heart sounds regular, S1 and S2 normal. No murmur or gallop heard. CHEST EXAMINATION: Lungs are clear to auscultation and precussion. No chest wall tenderness is noted on palpation or with deep breathing. ABDOMEN: Soft, nontender. Bowel sounds are heard. No organomegaly noted. EXTREMITIES: 2+ peripheral pulses with no evidence of peripheral edema and no calf tenderness noted. NEUROLOGIC patient is awake, alert and oriented x3. . Results 05/18/18 02:16 05/18/18 02:16 Cardiac Enzymes 05/17/18 05/17/18 05/17/18 Range/Units 13:30 13:30 20:25 AST 44 H (14-36) U/L CK-MB (CK-2) 0.4 0.3 (0.0-2.4) ng/mL Troponin I <0.012 <0.012 (0.000-0.034) ng/mL 05/18/18 Range/Units 02:16 AST (14-36) U/L CK-MB (CK-2) 0.3 (0.0-2.4) ng/mL Troponin I <0.012 (0.000-0.034) ng/mL Coagulation 05/17/18 Range/Units 13:30 PT 9.8 (9.0-12.0) sec APTT 26.6 (22.0-30.0) sec CBC 05/17/18 05/18/18 Range/Units 13:30 02:16 WBC 9.4 6.9 (3.8-10.6) k/uL RBC 4.63 4.27 (3.80-5.40) m/uL Hgb 13.2 11.8 (11.4-16.0) gm/dL Hct 40.7 37.5 (34.0-46.0) % Plt Count 248 203 (150-450) k/uL Comprehensive Metabolic Panel 05/17/18 05/18/18 Range/Units 13:30 02:16 Sodium 143 140 (137-145) mmol/L Potassium 3.6 3.6 (3.5-5.1) mmol/L Chloride 105 106 (98-107) mmol/L Carbon Dioxide 27 26 (22-30) mmol/L BUN 13 14 (7-17) mg/dL Creatinine 0.86 0.81 (0.52-1.04) mg/dL Glucose 111 H 99 (74-99) mg/dL Calcium 9.9 9.3 (8.4-10.2) mg/dL AST 44 H (14-36) U/L ALT 55 H (9-52) U/L Alkaline Phosphatase 101 (38-126) U/L Total Protein 7.7 (6.3-8.2) g/dL Albumin 4.3 (3.5-5.0) g/dL Current Medications Generic Name Dose Route Start Last Admin Trade Name Freq PRN Reason Stop Dose Admin Acetaminophen 650 mg 05/17/18 15:46 Tylenol Tab PO Q6HR PRN Mild Pain or Fever > 100.5 Alprazolam 0.25 mg 05/17/18 22:10 Xanax PO TID PRN Anxiety Aspirin 81 mg 05/18/18 09:00 05/18/18 08:33 Aspirin PO 81 mg DAILY [facility] Administration Atorvastatin Calcium 10 mg 05/17/18 16:00 05/17/18 20:15 Lipitor PO Not Given MOWEFR [facility] Ergocalciferol 50,000 unit 05/20/18 09:00 Vitamin D2 PO MO [facility] Furosemide 40 mg 05/18/18 09:00 05/18/18 08:33 Lasix PO 40 mg DAILY [facility] Administration Heparin Sodium (Porcine) 5,000 unit 05/18/18 09:00 05/18/18 08:33 Heparin SQ 5,000 unit Q12HR [facility] Administration Levothyroxine Sodium 150 mcg 05/18/18 06:30 05/18/18 06:08 Synthroid PO 150 mcg [id number]@0630 LATOSHA Administration Levothyroxine Sodium 75 mcg 05/19/18 06:30 Synthroid PO Story@0630 LATOSHA Morphine Sulfate 4 mg 05/17/18 15:46 Morphine Sulfate (Inj) IV Q4HR PRN Severe Pain Naloxone HCl 0.2 mg 05/17/18 15:46 Narcan IV Q2M PRN Opioid Reversal Nitroglycerin 0.4 mg 05/17/18 15:47 Nitrostat SUBLINGUAL Q5M PRN Chest Pain Ondansetron HCl 4 mg 05/17/18 15:46 Zofran IVP Q8HR PRN Nausea And Vomiting Temazepam 15 mg 05/17/18 22:10 Restoril PO HS PRN Insomnia Intake and Output 05/17/18 05/18/18 05/18/18 22:59 06:59 14:59 Intake Total 50 Balance 50 Intake: Amount of Fluid Infused ( 50 ml) Other: # Voids 1 Weight 119.6 kg 05/18/18 02:16 05/18/18 02:16 EKG Interpretations (text) Sinus bradycardia Assessment and Plan Assessment: #1 symptoms of chest heaviness and shortness of breath with exertion troponins negative 3 and EKG shows no evidence of ischemia, symptoms could be related to bradycardia and chronotropic incompetence #2 hypertension #3 hyperlipidemia #4 CAD with known intermediate lesion in the mid RCA from cath in 2014 #5 nicotine dependence Plan: From classification and treatment director perspective, we will obtain a 2-D echo with Doppler. We will resume metoprolol at only 25 mg by mouth twice a day. We will start the patient on amlodipine 5 mg daily. We will ambulate the patient and assess for further symptoms. Further recommendations to follow depending on patient's clinical course and symptomatology. LEGEND [employer]ER note has been reviewed, I agree with a documented findings and plan of care. Patient was seen and examined.
[2018-05-18] MEDS: amLODIPine 5 MG TAB PO SCH (09:36)
[2018-05-18] MEDS ORDERED: ALPRAZolam 0.5 MG TAB PO PRN (10:04)
[2018-05-18] MEDS ORDERED: SODIUM CHLORIDE 0.9% 1,000 ML in EMPTY BAG 1 BAG IV ONE (10:04)
[2018-05-18] MEDS ORDERED: ASPIRIN 325 MG TAB PO STA (10:04)
[2018-05-18] MEDS ORDERED: ATORVASTATIN 80 MG TAB PO STA (10:10)
[2018-05-18] MEDS ORDERED: IV FLUID CONTINUATION 950 ML IV ONE (11:35)
[2018-05-18] MEDS ORDERED: LIDOCAINE 1% INJ 10MG/ML (20 ML MDV) ONE (11:38)
[2018-05-18] MEDS ORDERED: VERAPAMIL 2.5 MG/ML 2 ML AMP ONE (11:41)
[2018-05-18] MEDS ORDERED: MIDAZOLAM 2 MG/2 ML VIAL ONE (11:45)
[2018-05-18] MEDS ORDERED: MIDAZOLAM 2 MG/2 ML VIAL IVP ONE (11:49)
[2018-05-18] MEDS ORDERED: LIDOCAINE 1% INJ 10MG/ML (20 ML MDV) SQ ONE ×2 (11:53)
[2018-05-18] MEDS ORDERED: VERAPAMIL SYRINGE (5 MG/10 ML) INTRAARTER ONE (11:54)
[2018-05-18] MEDS ORDERED: HEPARIN SODIUM 1,000 UN/ML (10ML VL) ONE (11:54)
[2018-05-18] MEDS ORDERED: HEPARIN SODIUM 1,000 UN/ML (10ML VL) IV ONE ×2 (11:54→11:56)
[2018-05-18] MEDS ORDERED: IOPAMIDOL-370 125ML BTL INJ ONE (12:05)
[2018-05-18] MEDS ORDERED: RX INFO: IV CONTRAST WAS GIVEN 1 EACH MISC MISCELLANE PRN (12:10)
[2018-05-18] MEDS ORDERED: SODIUM CHLORIDE 0.9% 1,000 ML IV SCH ×4 (12:15→17:45)
--- NOTE | 2018-05-18 12:32 | LTR ---
DATE OF SERVICE: 05/18/2018 RE: Janey Wu Dear Dr. Iyer; Ms. Janey Wu presented to [facility] with exertional symptoms of chest discomfort and shortness of breath This symptoms were concerning for angina. She underwent a heart catheterization and that revealed normal coronaries. I want to thank you for allowing me to participate in her care and please do not hesitate to call if you have any question or concern. Sincerely, MD OCTAVIO Baker / PIETRO: [id number] /
--- NOTE | 2018-05-18 12:32 | CC ---
CARDIAC CATHETERIZATION REPORT DATE OF SERVICE: 05/18/2018. PERFORMING PHYSICIAN: Chris Romo MD, City Engineer. PROCEDURE PERFORMED: 1. Selective right and left coronary angiogram. 2. Left heart catheterization. INDICATION: This is a very pleasant 58-year-old female patient who is known to have coronary artery disease, hypertension, dyslipidemia, significant history of smoking, was admitted to the hospital with exertional symptoms of chest discomfort and shortness of breath. The symptoms were quite suggestive for angina. Because of that, a coronary angiogram was advised. APPROACH: Right radial artery. . COMPLICATION: None. LEVEL OF SEDATION: Moderate with sedation length of 17 minutes. PROCEDURE DESCRIPTION: After obtaining an informed consent, the patient was brought to the cardiac construction craft laborer. The right radial artery was cannulated using micropuncture technique, the micropuncture wire passed easily, then I placed a 5-Wallisian sheath in the right radial artery. After that, I gave the patient 2 mg of verapamil IA and she was given 10,000 units of heparin IV. Then I did selective right and left coronary angiogram using JR4 and JL3.5 catheters. Left heart catheterization was performed using 5-Wallisian pigtail catheter. The procedure was completed without any complication. SELECTIVE CORONARY ANGIOGRAM: 1. The right coronary artery appeared to be a large caliber vessel. It is a dominant vessel. The RCA is angiographically normal. It bifurcates distally into PDA and PLV branches both are angiographically normal. 2. The left main is angiographically normal. It bifurcates into left circumflex, ramus intermedius, and left anterior descending artery. 3. The left circumflex is a large caliber vessel. It is a long left main. It bifurcates into the left circumflex, ramus intermedius, . The left circumflex is a large caliber vessel. It is a nondominant vessel. The left circumflex system is angiographically normal. It gives rise into the first and second obtuse marginal branches, both are angiographically normal. 4. The ramus intermedius is a large caliber vessel and is angiographically normal. 5. The LAD, the proximal LAD is normal. It gives rise into a large diagonal branch which appeared to be angiographically normal. The mid and distal LAD appear to be angiographically normal. HEMODYNAMICS: 1. The left ventricular end-diastolic pressure was 10-12 mmHg and no gradient was identified across the aortic valve. CONCLUSION: 1. Normal coronary angiogram. 2. Normal left ventricular end-diastolic pressure. POSTPROCEDURE MANAGEMENT: 1. Maximize medical treatment. 2. Follow up with the patient. OCTAVIO / PIETRO: [id number] /
--- NOTE | 2018-05-18 17:45 | P.CRDCN ---
History of Present Illness Chief complaint: Heart block complete History of present illness: Patient interviewed and examined Presented with shortness of breath walking 30 feet Also had heaviness in her chest Notice that her heart rate was in the 30s, bradycardia secondary to AV block. 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 I reviewed the twelve-lead ECGs and she had A-V dissociation Despite stopping beta blockers prior to admission Causes of complete heart block in this 58-year-old Afro-[place]ian female to be evaluated for in the future Chest x-ray does not suggest any mediastinal lymphadenopathy based upon report I had a detailed discussion with her regarding the need for permanent pacing I will implant a biventricular pacemaker since is very likely that she will pace almost 100% in the RV with a straightforward dual chamber pacemaker, which would increase her risk of heart failure in the future Procedure discussed in detail. Skin-Prep ongoing. Risks and benefits discussed. Potential complications discussed including cardiac perforation, lung perforation, infection Biventricular pacemaker planned with anesthesia tomorrow at 10 AM. I spoke to the road sign installer today. Medtronic rep has been called Impression Symptomatic bradycardia secondary to third-degree AV block and the heart block and bradycardia persists despite discontinuation of beta blockers Known coronary artery disease Hypertension No progression of coronary artery disease Status post Noel stenting in the past Plan Biventricular pacemaker implantation for management of bradycardia secondary to complete heart block without any reversible causes She will pace the ventricles 100% times during pacing and hence LV lead placement Review of systems: No fever chills or rigors, no cough, phlegm or expectoration , no nausea, vomiting or diarrhea, no hematuria, dysuria, no musculoskeletal complaints, no strokes or seizures, no skin lesions. In complaint was chest heaviness and shortness of breath on minimal exertion On examination Blood pressure is mildly elevated no JVD no carotid bruits Heart sounds S1 and S2 are normal no murmurs or gallop internally bradycardic Abdomen soft nontender Breath sounds are clear No lower extremity edema Labs are reviewed EKG is on telemetry strips were reviewed A-V dissociation with third degree heart block On telemetry intermittent heart block as well as second-degree AV block with bradycardia Past Medical History Past Medical History: Chest Pain / Angina, GERD/Reflux, Hyperlipidemia, Hypertension, Sleep Apnea/CPAP/BIPAP, Thyroid Disorder Additional Past Medical History / Comment(s): : 12/2014 lexiscan stress test negative and echo showed preserved L ventricular function with EF 60-65%, sleep apnea with CPAP set at 12 but has'nt been using.., cervical disc protrusion C2 and C3"spurs", colon polyps-hi grade dysplasia with removal, intermittent bilateral hand numbness and tingling, hypothyroidism, sinusitis, Salazar's Palsey yrs ago.emphysema, arthritis, History of Any Multi-Drug Resistant Organisms: None Reported Past Surgical History: Adenoidectomy, Breast Surgery, Heart Catheterization, Hernia Repair, Hysterectomy, Tonsillectomy, Tubal Ligation Additional Past Surgical History / Comment(s): Umbilical hernia repair, colonoscopies with polypectomies, L breast core bx with microchipping.partial hysterectomy, 1 dental implant upper lest side. Past Anesthesia/Blood Transfusion Reactions: No Reported Reaction Smoking Status: Current every day smoker - Past Family History Father Family Medical History: Cancer, Deep Vein Thrombosis (DVT), Vascular Disorder Additional Family Medical History / Comment(s): Father is alive and 89yrs old. He has had 2 cancers-sinus and pharyngeal. He has a peg tube. He has had bilateral carotid endartectomies, has jean-claude filter. Mother Family Medical History: Cancer Additional Family Medical History / Comment(s): Mother had breast cancer with mastectomy. She from a cancerous mass in her throat. Medications and Allergies Home Medications Medication Instructions Recorded Confirmed Type Ergocalciferol (Vitamin D2) 50,000 unit PO MO 01/25/15 05/17/18 History [Drisdol] Aspirin 81 mg PO DAILY #1 chewable 01/26/15 05/17/18 Rx Nitroglycerin Sl Tabs [Nitrostat] 0.4 mg SUBLINGUAL Q5M PRN #25 tab 01/26/15 Rx Biotin 5 mg PO DAILY 09/28/17 05/17/18 History Furosemide [Lasix] 40 mg PO DAILY 09/28/17 05/17/18 History Levothyroxine Sodium 150 mcg PO MOTUWETHFRSA 05/11/18 05/17/18 History Metoprolol Tartrate [Lopressor] 50 mg PO BID 05/11/18 05/17/18 History Rosuvastatin Calcium [Crestor] 5 mg PO MOWEFR 10/13/18 10/19/18 History Levothyroxine Sodium 75 mcg PO SPENCE 05/17/18 05/17/18 History Allergies Allergy/AdvReac Type Severity Reaction Status Date / Time No Known Allergies Allergy Verified 05/17/18 14:14 Physical Exam Vitals: Vital Signs Temp Pulse Pulse Resp BP BP Pulse Ox 05/18/18 17:34 55 L 18 128/74 95 05/18/18 14:55 60 16 149/63 97 05/18/18 13:55 54 L 16 132/75 94 L 05/18/18 13:25 42 L 16 107/58 96 05/18/18 12:55 46 L 16 164/82 100 05/18/18 12:40 98.2 F 52 L 18 132/74 97 05/18/18 08:00 97.8 F 54 L 16 144/70 100 05/18/18 03:50 97.5 F L 52 L 18 137/63 97 05/18/18 00:00 96.9 F L 50 L 18 154/67 97 05/17/18 20:20 96.9 F L 54 L 18 154/74 96 05/17/18 19:30 56 L 17 97 05/17/18 18:30 57 L 22 153/73 05/17/18 18:00 49 L 20 147/75 100 Intake and Output 05/18/18 05/18/18 05/18/18 06:59 14:59 22:59 Intake Total 605 Balance 605 Intake: IV 125 Oral 480 Other: # Voids 1 2 Weight 119.6 kg Results 05/19/18 06:55 05/19/18 06:55 Cardiac Enzymes 05/17/18 05/18/18 Range/Units 20:25 02:16 CK-MB (CK-2) 0.3 0.3 (0.0-2.4) ng/mL Troponin I <0.012 <0.012 (0.000-0.034) ng/mL CBC 05/18/18 Range/Units 02:16 WBC 6.9 (3.8-10.6) k/uL RBC 4.27 (3.80-5.40) m/uL Hgb 11.8 (11.4-16.0) gm/dL Hct 37.5 (34.0-46.0) % Plt Count 203 (150-450) k/uL Comprehensive Metabolic Panel 05/18/18 Range/Units 02:16 Sodium 140 (137-145) mmol/L Potassium 3.6 (3.5-5.1) mmol/L Chloride 106 (98-107) mmol/L Carbon Dioxide 26 (22-30) mmol/L BUN 14 (7-17) mg/dL Creatinine 0.81 (0.52-1.04) mg/dL Glucose 99 (74-99) mg/dL Calcium 9.3 (8.4-10.2) mg/dL Current Medications Generic Name Dose Route Start Last Admin Trade Name Freq PRN Reason Stop Dose Admin Acetaminophen 650 mg 05/17/18 15:46 Tylenol Tab PO Q6HR PRN Mild Pain or Fever > 100.5 Alprazolam 0.25 mg 05/17/18 22:10 Xanax PO TID PRN MILD Anxiety Alprazolam 0.5 mg 05/18/18 10:04 Xanax PO Q6HR PRN Moderate Anxiety Amlodipine Besylate 5 mg 05/18/18 09:30 05/18/18 09:36 Norvasc PO 5 mg DAILY LATOSHA Administration Aspirin 81 mg 05/18/18 09:00 05/18/18 08:33 Aspirin PO 81 mg DAILY LATOSHA Administration Atorvastatin Calcium 10 mg 05/17/18 16:00 05/17/18 20:15 Lipitor PO Not Given MOWEFR [facility] Cefazolin Sodium 2 gm 05/19/18 07:00 Kefzol IVP 05/19/18 07:01 ONCE ONE Ergocalciferol 50,000 unit 05/20/18 09:00 Vitamin D2 PO MO LATOSHA Furosemide 40 mg 05/18/18 09:00 05/18/18 08:33 Lasix PO 40 mg DAILY LATOSHA Administration Heparin Sodium (Porcine) 5,000 unit 05/18/18 09:00 05/18/18 08:33 Heparin SQ 5,000 unit Q12HR LATOSHA Administration Sodium Chloride 1,000 ml/ IV 1,000 mls @ 119.6 mls/hr 05/18/18 10:04 10:34 Solution IV 05/18/18 18:25 119.6 mls/hr .Q8H22M ONE Administration 1 ML/KG/HR Cefazolin Sodium 1,000 mg/ 250 mls @ 500 mls/hr 05/19/18 07:00 Sodium Chloride IRRIGATION 05/19/18 07:29 ONCE ONE Sodium Chloride 1,000 mls @ 50 mls/hr 05/18/18 17:45 Saline 0.9% IV .Q20H LATOSHA Sodium Chloride 1,000 mls @ 50 mls/hr 05/18/18 17:45 Saline 0.9% IV .Q20H [facility] Levothyroxine Sodium 150 mcg 05/18/18 06:30 05/18/18 06:08 Synthroid PO 150 mcg [id number]@[id number] [facility] Administration Levothyroxine Sodium 75 mcg 05/19/18 06:30 Synthroid PO Spence@0630 [facility] Miscellaneous Information 1 each 05/18/18 12:10 Rx Info: Iv Contrast Was Given MISCELLANE 05/20/18 12:10 DAILY PRN Per Protocol Morphine Sulfate 4 mg 05/17/18 15:46 Morphine Sulfate (Inj) IV Q4HR PRN Severe Pain Naloxone HCl 0.2 mg 05/17/18 15:46 Narcan IV Q2M PRN Opioid Reversal Nitroglycerin 0.4 mg 05/17/18 15:47 Nitrostat SUBLINGUAL Q5M PRN Chest Pain Ondansetron HCl 4 mg 05/17/18 15:46 Zofran IVP Q8HR PRN Nausea And Vomiting Temazepam 15 mg 05/17/18 22:10 Restoril PO HS PRN Insomnia Intake and Output 05/18/18 05/18/18 05/18/18 06:59 14:59 22:59 Intake Total 605 Balance 605 Intake: IV 125 Oral 480 Other: # Voids 1 2 Weight 119.6 kg 05/18/18 02:16 05/18/18 02:16
[2018-05-18 18:44] LABS: ALT 51 U/L (9-52); AST 34 U/L (14-36); Albumin 4.2 g/dL (3.5-5.0); Alkaline Phosphatase 90 U/L (38-126); Anion Gap 10 mmol/L; Blood Urea Nitrogen 13 mg/dL (7-17); Calcium 9.5 mg/dL (8.4-10.2); Carbon Dioxide 25 mmol/L (22-30); Chloride 106 mmol/L (98-107); Glucose 141 mg/dL (74-99); Potassium 3.2 mmol/L (3.5-5.1); Sodium 141 mmol/L (137-145); Total Bilirubin 0.5 mg/dL (0.2-1.3); Total Protein 7.3 g/dL (6.3-8.2)
[2018-05-18] MEDS ORDERED: METOPROLOL TARTRATE 25 MG TAB PO SCH (21:00)
[2018-05-18] MEDS: SODIUM CHLORIDE 0.9% 1,000 ML IV SCH (21:21)
--- NOTE | 2018-05-18 21:59 | PN ---
PROGRESS NOTE DATE OF SERVICE: 05/18/2018 This 58-year-old woman was admitted with chest pain also had unstable angina. The patient had a cardiac catheterization today and cardiac cath showed normal coronaries and normal LV function and the patient had secondary AV block on ambulation. The patient is closely monitored. No chest pain. No palpitations. No fever. EXAM: Alert and oriented x3. Pulse 54, blood pressure 130/75, respirations 16, temperature 98.2, pulse ox 94% on room air. HEENT: Conjunctivae normal. CARDIOVASCULAR: S1, S2. RESPIRATORY: Breath sounds diminished in the bases. No rhonchi, no crackles. ABDOMEN: Soft, nontender. No mass palpable. LEGS: No edema. NERVOUS SYSTEM: No focal deficits. LABS: CBC within normal limits. CMP is also normal limits. TSH is 7.680, free T4 is 1.001. ASSESSMENT: 1. Chest pain, possible unstable angina with status post cardiac cath and normal coronary arteries. 2. Heart block with second-degree AV block. 3. Increased AST and ALT. 4. Bradycardia. 5. Hypertension. 6. Hyperlipidemia. 7. Sleep apnea. 8. History of hypothyroidism. 9. History of adenoidectomy. 10.FULL CODE. RECOMMENDATIONS AND DISCUSSION: I recommend to continue current management and symptomatic treatment. Otherwise continue with current medications. Closely follow with Cardiology and guarded prognosis. Further recommendations to follow. MMODL / IJN: [id number] /
[2018-05-19] MEDS ORDERED: LEVOTHYROXINE 75 MCG TAB PO SCH (06:30)
[2018-05-19] MEDS ORDERED: ceFAZolin IN SWFI 2 GM/20 ML SYRINGE IVP ONE (07:00)
[2018-05-19] MEDS ORDERED: ceFAZolin 1,000 MG in SODIUM CHLORIDE 0.9% IRRIGATIO 250 ML IRRIGATION ONE ×2 (07:00→13:15)
[2018-05-19] MEDS: amLODIPine 5 MG TAB PO SCH ×2 (07:01→17:04)
[2018-05-19] MEDS: ASPIRIN 81 MG PO SCH (07:02)
[2018-05-19] MEDS: FUROSEMIDE 40 MG TAB PO SCH (07:36)
[2018-05-19] MEDS: HEPARIN SODIUM,PORCINE 5,000 UNIT/ML 1 ML VIAL SQ SCH ×2 (07:37→21:33)
[2018-05-19 07:47] LABS: Basophils % (A) 1 %; Eosinophils # (A) 0.2 k/uL (0-0.7); Eosinophils % (A) 3 %; HGB 12.8 gm/dL (11.4-16.0); Hypochromasia Slight; Lymphocytes # (A) 3.9 k/uL (1.0-4.8); Lymphocytes % (A) 48 %; MCH 27.3 pg (25.0-35.0); MCHC 31.1 g/dL (31.0-37.0); MCV 87.8 fL (80.0-100.0); Monocytes # (A) 0.2 k/uL (0-1.0); Monocytes % (A) 3 %; Neutrophils # (A) 3.5 k/uL (1.3-7.7); Neutrophils % (A) 44 %; Platelet Count 228 k/uL (150-450); RBC 4.67 m/uL (3.80-5.40); RDW 14.5 % (11.5-15.5)
[2018-05-19 07:55] LABS: Calcium 9.9 mg/dL (8.4-10.2); Potassium 3.9 mmol/L (3.5-5.1)
[2018-05-19] MEDS ORDERED: ONDANSETRON 4 MG/2 ML VIAL ONE (09:38)
[2018-05-19] MEDS ORDERED: fentaNYL (PF) 50 MCG/ML 2 ML AMP ONE (09:38)
[2018-05-19] MEDS ORDERED: MIDAZOLAM 2 MG/2 ML VIAL ONE (09:38)
[2018-05-19] MEDS ORDERED: LIDOCAINE 1% INJ 10MG/ML (20 ML MDV) ONE (09:54)
[2018-05-19] MEDS ORDERED: IV FLUID CONTINUATION 1,000 ML IV ONE (10:00)
[2018-05-19] MEDS ORDERED: IOPAMIDOL-370 50ML BTL INJ ONE (10:00)
[2018-05-19] MEDS ORDERED: LIDOCAINE 1% INJ 10MG/ML (20 ML MDV) SQ ONE ×2 (10:25→10:40)
[2018-05-19] MEDS: LIDOCAINE 1% INJ 10MG/ML (20 ML MDV) SQ ONE ×2 (10:33→10:38)
[2018-05-19] MEDS ORDERED: HEPARIN SODIUM 1,000 UN/ML (10ML VL) ONE (12:09)
[2018-05-19] MEDS ORDERED: SODIUM CHLORIDE 0.9% 1,000 ML IV ONE (12:14)
[2018-05-19] MEDS ORDERED: LACTATED RINGERS 1,000 ML IV ONE (12:14)
[2018-05-19] MEDS ORDERED: IOPAMIDOL-250 50ML BTL IV ONE ×2 (12:27)
[2018-05-19] MEDS ORDERED: ACETAMINOPHEN TAB 325 MG TAB PO PRN (13:24)
[2018-05-19] MEDS ORDERED: ACETAMINOPHEN IV (For NPO) 1,000 MG in EMPTY BAG 1 BAG IVPB ONE (13:24)
--- NOTE | 2018-05-19 13:40 | ECHOF ---
Referral Reason:chest pain MEASUREMENTS -------- HEIGHT: 165.1 cm WEIGHT: 119.3 kg BP: 137/63 RVIDd: 2.9 cm (< 3.3) IVSd: 1.1 cm (0.6 - 1.1) LVIDd: 4.4 cm (3.9 - 5.3) LVPWd: 1.0 cm (0.6 - 1.1) IVSs: 1.7 cm LVIDs: 2.6 cm LVPWs: 1.5 cm LA Diam: 3.4 cm (2.7 - 3.8) LAESV Index (A-L): 23.63 ml/m Ao Diam: 2.9 cm (2.0 - 3.7) AV Cusp: 2.2 cm (1.5 - 2.6) MV EXCURSION: 20.174 mm (> 18.000) MV EF SLOPE: 133 mm/s (70 - 150) EPSS: 0.3 cm MV E Aleksandar: 0.93 m/s MV DecT: 274 ms MV A Aleksandar: 0.55 m/s MV E/A Ratio: 1.69 FINDINGS -------- Resting bradycardia (HR<60bpm). This was a technically adequate study. The left ventricular size is normal. There is borderline concentric left ventricular hypertrophy. Overall left ventricular systolic function is normal with, an EF between 55 - 60 %. The right ventricle is normal in size. Normal LA size by volume 22+/-6 ml/m2. The right atrium is normal in size. The aortic valve is trileaflet and appears structurally normal. The mitral valve is normal. The tricuspid valve appears structurally normal. There is no pulmonic regurgitation present. The aortic root size is normal. IVC Not well visulized. There is no pericardial effusion. CONCLUSIONS -------- 1. Resting bradycardia (HR<60bpm). 2. This was a technically adequate study. 3. The left ventricular size is normal. 4. There is borderline concentric left ventricular hypertrophy. 5. Overall left ventricular systolic function is normal with, an EF between 55 - 60 %. 6. The right ventricle is normal in size. 7. Normal LA size by volume 22+/-6 ml/m2. 8. The right atrium is normal in size. 9. The aortic valve is trileaflet and appears structurally normal. 10. The mitral valve is normal. 11. The tricuspid valve appears structurally normal. 12. There is no pulmonic regurgitation present. 13. The aortic root size is normal. 14. IVC Not well visulized. 15. There is no pericardial effusion. ARTS AND HUMANITIES COUNCIL DIRECTOR: Wanda Cardoso RDCS
--- NOTE | 2018-05-19 14:25 | P.PN ---
Subjective Progress Note Date: 05/19/18 Principal diagnosis: AV block/bradycardia This is a pleasant 58-year-old -[place] female patient with history of hypothyroidism, hypertension and lipidemia, hypertension and known intermediate disease involving the mid RCA phone and cardiac catheterization done 2014. She' s been having recurrent chest heaviness and shortness of breath with activity. She's also noticed her heart rate to be running a low as well as into the 30s at times. She is currently on metoprolol titrate 50 mg by mouth twice a day at home. She did recently undergo a stress echocardiogram that showed [address] depression to be related to ischemia or hypertension but no echocardiographic evidence of ischemia. EKG shows sinus bradycardia. Troponins have been negative 3. TSH is 7.68 with a free T4 1 0.01. Chest x-ray showed no acute cardiopulmonary process. The subsequent EKG in the hospital revealed sinus rhythm was type II second-degree AV block. The patient underwent a heart catheterization which revealed mild nonobstructive coronary artery disease involving the right coronary artery. Because of that the decision was made toward proceeding with a permanent pacemaker implantation. On follow-up with the patient today, 05/19/2018, she underwent a permanent pacemaker earlier today. The heart rate has been in the 80s. She denies having any chest pain or chest discomfort. We'll follow-up with a chest x-ray in the morning. Objective - Vital Signs Vital signs: Vital Signs Temp 98.3 F 05/19/18 07:45 Pulse 48 L 05/19/18 07:45 Resp 18 05/19/18 07:45 BP 122/71 05/19/18 07:45 Pulse Ox 99 05/19/18 07:45 Intake & Output 05/18/18 05/19/18 05/19/18 18:59 06:59 18:59 Intake Total 827 620 Output Total 300 Balance 827 320 Weight 119.1 kg Intake: IV 125 500 Intake, IV Titration 120 Amount Sodium Chloride 0.9% 1, 120 000 ml @ 100 mls/hr IV . Q10H LATOSHA Rx#:[id number] Oral 702 Output: Urine 300 Other: Voiding Method Toilet # Voids 2 1 - Constitutional General appearance: Present: no acute distress - Respiratory Respiratory: bilateral: CTA - Cardiovascular Rhythm: regular Heart sounds: normal: S1, S2 - Labs CBC & Chem 7: 05/19/18 06:55 05/19/18 06:55 Labs: Abnormal Lab Results - Last 24 Hours (Table) 05/18/18 05/19/18 Range/Units 18:16 06:55 Sodium 148 H (137-145) mmol/L Potassium 3.2 L (3.5-5.1) mmol/L Chloride 109 H (98-107) mmol/L Glucose 141 H 106 H (74-99) mg/dL Assessment and Plan Assessment: Assessment #1 symptomatic bradycardia #2 second degree type II AV block #3 hypertension #4 dyslipidemia #5 status post permanent pacemaker #6 smoking Plan #1 continue the current medical regimen #2 the dose of Norvasc was increased area today for better blood pressure control #3 we'll follow-up with a chest x-ray in the morning #4 follow-up with the patient.
[2018-05-19] MEDS: SODIUM CHLORIDE 0.9% 1,000 ML IV SCH ×2 (15:00→21:35)
[2018-05-19] MEDS: ceFAZolin IN SWFI 2 GM/20 ML SYRINGE IVP SCH ×2 (17:04→22:28)
[2018-05-19] MEDS: HYDROcodone/APAP 5-325MG 1 EACH TAB PO PRN (21:33)
--- NOTE | 2018-05-19 21:42 | PN ---
PROGRESS NOTE DATE OF SERVICE: 05/19/2018 This 58-year-old woman was admitted with chest pain also had unstable angina. Cardiac catheterization did not show acute abnormality. However, the patient had third degree AV block. Patient underwent biventricular pacemaker implantation by Cardiology today. No chest pain. No palpitations. No fever. EXAM: Alert and oriented x3. Pulse 73, blood pressure 119/73, respirations 16, temperature 98.2, pulse ox 94% on room air. HEENT: Conjunctivae normal. Oral mucosa is moist. Neck is no jugular venous distention. No carotid bruit. No lymph node enlargement. CARDIOVASCULAR: S1, S2 muffled. RESPIRATORY: Breath sounds diminished in the bases. No rhonchi, no crackles. ABDOMEN: Soft, nontender. No mass palpable. LEGS: No edema. NERVOUS SYSTEM: No focal deficits. LABS: CBC within normal limits. Sodium 148. ASSESSMENT: 1. Chest pain possible unstable angina, status post cardiac catheterization with normal coronary arteries. 2. Bradycardia with heart block, status post biventricular pacemaker. 3. Increased AST, ALT. 4. Hypertension. 5. Hyperlipidemia. 6. Sleep apnea. 7. History of hypothyroidism. 8. History of adenoidectomy. 9. FULL CODE. RECOMMENDATIONS AND DISCUSSION: I recommend to continue current management, continue symptomatic treatment. Otherwise at this time, I recommend to closely monitor. Follow closely with Cardiology. Continue the rest of medications as ordered. Further recommendations to follow. Incentive spirometry, DVT prophylaxis. Further recommendations to follow. MMODL / IJN: [id number] /
--- NOTE | 2018-05-19 22:39 | CE ---
CARDIAC ELECTROPHYSIOLOGY REPORT HISTORY: Janey Wu has bradycardia secondary to AV block, third-degree. She underwent implantation of a biventricular pacemaker. DESCRIPTION: The patient was brought to the EP lab in a fasting state. Written informed consent was obtained prior to the procedure. Anesthesia was in attendance. The left pectoral area was prepped and draped as per protocol. Next, 1% lidocaine was used for local anesthesia. A 4 cm incision was made parallel to the deltopectoral groove, about 1.5 cm medial to it. The incision was carried down to the level of the pectoralis muscle. A subfascial pocket was made. Hemostasis was assured. The left axillary vein was accessed at 3 separate points under fluoroscopy and, via appropriately-sized introducer sheaths, 3 leads positioned. First, a temporary pacemaker catheter was placed (Preston catheter) into the right atrium in preparation for any need for permanent pacing. However, such a need not arise and this was removed once the RV lead was placed. The RV lead was then positioned in the RV apex. This is a screw-in lead Amindtronic model 5076, 58 cm in length and serial number [id number]. R-waves 10.6 mV. Pacing impedance 893 ohms, pacing threshold 0.5 V at 0.4 milliseconds, 10 V test negative. Next His bundle pacing was attempted and although there was a far field, His was obtained. His pacing could not be achieved despite screwing the lead for greater than 6 times. This was abandoned and then the coronary sinus was accessed. The coronary sinus access was fairly straightforward, but the patient had only 1 LV vein that could be used for biventricular pacing. This was the posterolateral vein, but it had an unusual caudal course and took almost 180 degree turn from the coronary sinus body, downward toward the inferior wall and then laterally. Multiple different sheaths, multiple different inner sheaths, multiple catheters and wires were used and finally with subselecting 130 degree short tip sheath and a Glidewire, this vein was accessed. The subselective sheath was placed into the vein. Following that, this was double wired with an angioplasty wire. The Glidewire was removed and the lead was fed over the wire and positioned in a very stable position in this vein. As noted above, this was the only usable vein she has. The proximal pole thresholds were the best and LV 4-N configuration was used for pacing. There was diaphragmatic stimulation with LV 4 pacing, but there was diaphragmatic stimulation with LV 1 pacing. Pacing threshold was 2.5 V at 0.5 milliseconds. Pacing impedance 456 ohms. The LV lead was model #4398, 88 cm in length, Medtronic lead, serial #[id number]. The right atrial lead was a Medtronic model #4574, 53 cm in length, serial number [id number]. P waves 1.2 mV. Pacing impedance 570 ohms, pacing threshold 0.5 V at 0.4 milliseconds, 10 V test negative. All leads secured to the underlying pectoralis fascia were removed. The wound was closed and the leads were secured. The lead was connected to the generator ([employer]ite Janeth quad SUNGLASS CLIP ATTACHER-PMRI, model number W4PR02, serial number [id number]. The leads and generator were then placed in the subfascial pocket. The wound was closed in 3 layers and dressed per protocol. The new device was then programmed to DDD mode with an AV delay of 150 milliseconds. The pacing configuration was LV4 ____. The patient tolerated the procedure well without any acute complications. RESULTS: Successful biventricular pacemaker implantation for bradycardia secondary to third- degree heart block. This was a long procedure, the His bundle could not be captured even though there was a tiny His bundle signal during mapping. The LV vein was very difficult to access because of the very acute angulation with respect to the main coronary sinus body and required multiple sheaths, multiple wires, and multiple inner sheaths to cannulate this vein. The patient tolerated the procedure well without any acute complications. MMODL / IJN: [id number] /
[2018-05-20] MEDS: ceFAZolin IN SWFI 2 GM/20 ML SYRINGE IVP SCH (04:28)
[2018-05-20] MEDS: HYDROcodone/APAP 5-325MG 1 EACH TAB PO PRN (04:32)
[2018-05-20] MEDS: LEVOTHYROXINE 75 MCG TAB PO SCH (06:47)
[2018-05-20 07:26] LABS: Basophils % (A) 0 %; Eosinophils # (A) 0.3 k/uL (0-0.7); Eosinophils % (A) 3 %; HCT 40.5 % (34.0-46.0); HGB 12.5 gm/dL (11.4-16.0); Hypochromasia Slight; Lymphocytes # (A) 3.8 k/uL (1.0-4.8); Lymphocytes % (A) 44 %; MCH 27.5 pg (25.0-35.0); MCHC 30.9 g/dL (31.0-37.0); MCV 89.1 fL (80.0-100.0); Mean Platelet Volume 8.8; Monocytes # (A) 0.2 k/uL (0-1.0); Monocytes % (A) 2 %; Neutrophils # (A) 4.2 k/uL (1.3-7.7); Neutrophils % (A) 49 %; Platelet Count 210 k/uL (150-450); RBC 4.54 m/uL (3.80-5.40); RDW 14.5 % (11.5-15.5); WBC 8.6 k/uL (3.8-10.6)
[2018-05-20 07:39] LABS: Calcium 9.6 mg/dL (8.4-10.2); Potassium 3.7 mmol/L (3.5-5.1)
[2018-05-20] MEDS: ASPIRIN 81 MG PO SCH (08:11)
[2018-05-20] MEDS: FUROSEMIDE 40 MG TAB PO SCH (08:11)
[2018-05-20] MEDS: amLODIPine 5 MG TAB PO SCH (08:11)
[2018-05-20] MEDS: HEPARIN SODIUM,PORCINE 5,000 UNIT/ML 1 ML VIAL SQ SCH (08:11)
[2018-05-20 08:16] VITALS: RESP 16; TEMP 96.6
[2018-05-20] MEDS ORDERED: ERGOCALCIFEROL 50,000 UNIT CAP PO SCH (09:00)
--- NOTE | 2018-05-20 09:16 | XR ---
EXAMINATION TYPE: XR chest 2V DATE OF EXAM: 05/20/2018 COMPARISON: 05/17/2018 TECHNIQUE: PA and lateral views submitted. HISTORY: Lead placement check FINDINGS: Linear band of density in the right middle lobe compatible scarring or atelectasis. Triple lead pacem selena is seen. No sizable pneumothorax. No pleural effusion. Heart size stable. Hypertrophic and degen erative change of the spine. IMPRESSION: 1. Right middle lobe atelectasis 2. Pacemaker placement with no sizable pneumothorax.
[2018-05-20 11:58] VITALS: BP 134/72; PULSE 73
--- NOTE | 2018-05-20 14:44 | P.PN ---
Subjective Progress Note Date: 05/20/18 this is a pleasant 58-year-old -[place] female who follows with Dr. Mendoza in the office. She has a known history of hypothyroidism, hypertension, hyperlipidemia, known intermediate disease involving the mid RCA by cardiac catheterization performed in 2014. She presented to the hospital with symptoms of chest discomfort, it was also noted that her heart rate at times it was running in the 30 range. She did recently undergo a stress echocardiographic study which revealed [address] depression but no echocardiographic evidence of ischemia. Her EKG on presentation here did show bradycardia with second-degree type II heart block. Patient underwent a cardiac catheterizationI Dr. Romo which revealed normal coronary arteries with normal left ventricular end- diastolic pressure.subsequent to that patient underwent implantation of a bi-V pacemaker by Dr. Peña. Device was interrogated this morning and is functioning appropriately. Chest x-ray was reviewed and did not reveal any evidence of a pneumothorax.blood pressure this morning 134/70 with a heart rate in the 70s, 95% on room air.White blood cell count 8.6, hemoglobin 12.5, platelet count 210. Sodium 142, potassium 3.7, BUN 10 and creatinine 0.8.patient states that the first time she got up this morning she had a mild episode of dizziness but since then she's been feeling well, up ambulating without any difficulty. Objective - Vital Signs Vital signs: Vital Signs Temp 96.6 F L 05/20/18 08:00 Pulse 73 05/20/18 11:58 Resp 16 05/20/18 11:58 BP 134/72 05/20/18 11:58 Pulse Ox 95 05/20/18 11:58 Intake & Output 05/19/18 05/20/18 05/20/18 18:59 06:59 18:59 Intake Total 2100 358 Output Total 300 0 Balance 1800 358 Weight 120.5 kg Intake: IV 500 Intake, IV Titration 1120 Amount Lactated Ringers 1,000 ml 1000 @ 0 mls/hr IV .STK-MED ONE Rx#:[id number] Sodium Chloride 0.9% 1, 120 000 ml @ 100 mls/hr IV . Q10H LATOSHA Rx#:[id number] Oral 480 358 Output: Urine 300 0 Other: Voiding Method Toilet Toilet # Voids 1 1 - Exam PHYSICAL EXAMINATION: GENERAL:58-year-old -[place] female in no acute distress at the time of my examination HEENT: Head is atraumatic, normocephalic. Pupils equal, round. Sclera anicteric. Conjunctiva are clear. Mucous membranes of the mouth are moist. Neck is supple. There is no elevated jugular venous pressure.carotid bruit is heard. HEART EXAMINATION: [Heart S1, S2 normal. No murmur or gallop heard.] CHEST EXAMINATION:[ Lungs are clear to auscultation and precussion. No chest wall tenderness is noted on palpation or with deep breathing.]site of pacemaker implantation, dressing is dry and intact. ABDOMEN: [ Soft, nontender. Bowel sounds are heard. No organomegaly noted]. EXTREMITIES:[ 2+ peripheral pulses with no evidence of peripheral edema and no calf tenderness noted]. NEUROLOGIC [patient is awake, alert and oriented X3.] . - Labs CBC & Chem 7: 05/20/18 07:01 05/20/18 07:01 Labs: Abnormal Lab Results - Last 24 Hours (Table) 05/18/18 05/20/18 05/20/18 Range/Units 18:16 07:01 07:01 MCHC 30.9 L (31.0-37.0) g/dL Glucose 117 H (74-99) mg/dL Angiotensin Convert Enz 70 H (8-52) U/L Assessment and Plan Plan: Assessment: #1 symptoms of chest heaviness and shortness of breath with exertion troponins negative 3 and EKG shows no evidence of ischemia, MACHO post cardiac catheterization which revealed normal coronary arteries #2 hypertension #3 hyperlipidemia #4 CAD with known intermediate lesion in the mid RCA from cath in 2014 #5 nicotine dependence #6 second-degree type II heart block, status post implantation of Bi-V permanent pacemaker. Plan Cardiology's perspective, patient may be able to be discharged home today. We' ll make her a follow-up appointment in the office with Dr. Mendoza and with the device clinic post discharge. DNP note has been reviewed, I agree with a documented findings and plan of care. Patient was seen and examined.
== END 2018-05-20 17:53 | disposition home or self-care (01) | DRG 243 ==
LOC: EC 13:10 → 3SCARD 15:46 → OBSVTOIN 05-19 11:58
PROVIDERS: ADMIT Hospitalist; ATTEND Hospitalist
PROC: 4A023N7 Measurement of Cardiac Sampling and Pressure, Left Heart, Percutaneous Approach (ICD-10-PCS; 2018-05-18)
PROC: B211YZZ Fluoroscopy of Multiple Coronary Arteries using Other Contrast (ICD-10-PCS; 2018-05-18)
PROC: 02H63JZ Insertion of Pacemaker Lead into Right Atrium, Percutaneous Approach (ICD-10-PCS; 2018-05-19)
PROC: 02HK3JZ Insertion of Pacemaker Lead into Right Ventricle, Percutaneous Approach (ICD-10-PCS; 2018-05-19)
PROC: 02HL3JZ Insertion of Pacemaker Lead into Left Ventricle, Percutaneous Approach (ICD-10-PCS; 2018-05-19)
PROC: 0JH637Z Insertion of Cardiac Resynchronization Pacemaker Pulse Generator into Chest Subcutaneous Tissue and Fascia, Percutaneous Approach (ICD-10-PCS; principal; 2018-05-19 10:00)
DX: I44.2 Atrioventricular block, complete (principal); I20.0 Unstable angina; R00.1 Bradycardia, unspecified; E03.9 Hypothyroidism, unspecified; J43.9 Emphysema, unspecified; M50.21 Other cervical disc displacement, high cervical region; I10 Essential (primary) hypertension; E78.5 Hyperlipidemia, unspecified; K21.9 Gastro-esophageal reflux disease without esophagitis; G47.30 Sleep apnea, unspecified; M19.91 Primary osteoarthritis, unspecified site; G51.0 Bell's palsy; J32.9 Chronic sinusitis, unspecified; F17.200 Nicotine dependence, unspecified, uncomplicated; Z79.82 Long term (current) use of aspirin; Z79.890 Hormone replacement therapy; Z79.899 Other long term (current) drug therapy; Z99.89 Dependence on other enabling machines and devices; Z86.010 Personal history of colon polyps; Z90.710 Acquired absence of both cervix and uterus; Z98.51 Tubal ligation status; Z96.5 Presence of tooth-root and mandibular implants; Z80.8 Family history of malignant neoplasm of other organs or systems; Z80.0 Family history of malignant neoplasm of digestive organs; Z80.3 Family history of malignant neoplasm of breast; Z82.49 Family history of ischemic heart disease and other diseases of the circulatory system; Z83.2 Family history of diseases of the blood and blood-forming organs and certain disorders involving the immune mechanism
CPT/HCPCS: 33208; 36415; 71046; 80048; 80053; 82164; 82550; 82553; 83735; 83880; 84439; 84443; 84484; 85025; 85610; 85730; 93005; 93306; 93458; 99285

== ENCOUNTER → 2018-06-17 | Outpatient (CLI) | payer MEDICAID ==
[2018-06-17 11:46] LABS: Basophils % (A) 1 %; Eosinophils # (A) 0.1 k/uL (0-0.7); Eosinophils % (A) 2 %; HGB 12.9 gm/dL (11.4-16.0); Hypochromasia Slight; Lymphocytes # (A) 2.7 k/uL (1.0-4.8); Lymphocytes % (A) 44 %; MCHC 30.8 g/dL (31.0-37.0); MCV 87.7 fL (80.0-100.0); Mean Platelet Volume 7.5; Monocytes # (A) 0.2 k/uL (0-1.0); Monocytes % (A) 4 %; Neutrophils % (A) 48 %; Platelet Count 280 k/uL (150-450); RBC 4.79 m/uL (3.80-5.40); RDW 14.3 % (11.5-15.5); WBC 6.3 k/uL (3.8-10.6)
[2018-06-17 16:18] LABS: Anion Gap 5.5 mmol/L (4.00-12.00); Calcium 9.5 mg/dL (8.7-10.3); Carbon Dioxide 27.5 mmol/L (21.6-31.8); LDL Cholesterol,Calculated 126.8 mg/dL (0.0-131.0); Potassium 4.3 mmol/L (3.5-5.5); VLDL Calculation 30.2 mg/dL (5.00-40.00)
== END | disposition home or self-care (01) ==
LOC: LABWHC1 10:13
PROVIDERS: ATTEND Nurse Practitioner Adult Health
DX: E78.5 Hyperlipidemia, unspecified (principal); I10 Essential (primary) hypertension
CPT/HCPCS: 36415; 80048; 80061; 84450; 84460; 85025

== ENCOUNTER → 2018-07-01 | Outpatient (CLI) | payer MEDICAID | LOC: LABWHC1 15:38 | PROVIDERS: ATTEND Nurse Practitioner Adult Health | DX: E03.9 Hypothyroidism, unspecified (principal) | CPT/HCPCS: 36415; 84439; 84443; 84481 ==

== ENCOUNTER → 2018-10-14 | Outpatient (CLI) | payer MEDICAID ==
[2018-10-14 16:03] LABS: T4, Free (Free Thyroxine) 1.3 ng/dL (0.80-1.80)
== END ==
LOC: LABWHC1 08:02
PROVIDERS: ATTEND Internal Medicine Endocrinology, Diabetes & Metabolism
DX: E03.9 Hypothyroidism, unspecified (principal)
CPT/HCPCS: 36415; 84439; 84443

== ENCOUNTER → 2019-01-11 | Outpatient (CLI) | payer MEDICAID ==
[2019-01-11 09:38] LABS: Basophils % (A) 0 %; Eosinophils # (A) 0.2 k/uL (0-0.7); Eosinophils % (A) 2 %; HCT 40.1 % (34.0-46.0); HGB 12.3 gm/dL (11.4-16.0); Hypochromasia Slight; Lymphocytes # (A) 3.2 k/uL (1.0-4.8); Lymphocytes % (A) 43 %; MCH 26.4 pg (25.0-35.0); MCHC 30.8 g/dL (31.0-37.0); MCV 85.9 fL (80.0-100.0); Mean Platelet Volume 7.9; Monocytes # (A) 0.3 k/uL (0-1.0); Monocytes % (A) 4 %; Neutrophils # (A) 3.6 k/uL (1.3-7.7); Neutrophils % (A) 49 %; Platelet Count 231 k/uL (150-450); RBC 4.67 m/uL (3.80-5.40); RDW 14.5 % (11.5-15.5); WBC 7.4 k/uL (3.8-10.6)
[2019-01-11 16:18] LABS: T4, Free (Free Thyroxine) 1.6 ng/dL (0.80-1.80)
== END | disposition home or self-care (01) ==
LOC: LABWHC1 08:18
PROVIDERS: ATTEND Internal Medicine Endocrinology, Diabetes & Metabolism
DX: E78.5 Hyperlipidemia, unspecified (principal); E55.9 Vitamin D deficiency, unspecified; E03.9 Hypothyroidism, unspecified
CPT/HCPCS: 36415; 82306; 82310; 84439; 84443; 84482; 85025

== ENCOUNTER 2019-03-30 09:00 | Observation (INO) | payer MEDICAID ==
[2019-03-30] MEDS ORDERED: NITROGLYCERIN SL TABS 0.4 MG TAB SUBLINGUAL STA ×3 (09:29)
[2019-03-30] MEDS ORDERED: ASPIRIN 81 MG PO STA (09:29)
--- NOTE | 2019-03-30 09:41 | ED ---
General Adult HPI - General Chief complaint: Chest Pain Stated complaint: chest heaviness/ arm numbness Time Seen by Provider: 03/30/19 09:20 Source: patient, RN notes reviewed Mode of arrival: ambulatory Limitations: no limitations - History of Present Illness Initial comments: Patient is a pleasant 59-year-old female presenting to the emergency department with chest discomfort. Onset of symptoms was 4 days ago. Symptoms have been waxing and waning. Discomfort is currently 6/10 which is the worst it has been. Patient has some pressure in the sternal region. There is some sharpness in the left breast. There is also some radiation towards left arm. Patient has some shortness of breath however this has been chronic since her pacemaker place ment back in April. also has occasional sweating however this is chronic for her as well. No nausea. - Related Data Home Medications Medication Instructions Recorded Confirmed Ergocalciferol (Vitamin D2) 50,000 unit PO MO 01/25/15 03/30/19 [Drisdol] Biotin 5 mg PO DAILY 09/28/17 03/30/19 Furosemide [Lasix] 40 mg PO DAILY 09/28/17 03/30/19 Levothyroxine Sodium 150 mcg PO MOTUWETHFR 05/11/18 03/30/19 Levothyroxine Sodium 75 mcg PO SUSA 05/17/18 03/30/19 Aspirin 81 mg PO HS 03/30/19 03/30/19 Metoprolol Tartrate [Lopressor] 25 mg PO BID 03/30/19 03/30/19 Previous Rx's Medication Instructions Recorded amLODIPine [Norvasc] 5 mg PO BID #60 tab 05/20/18 Allergies Allergy/AdvReac Type Severity Reaction Status Date / Time No Known Allergies Allergy Verified 03/30/19 09:16 Review of Systems ROS Statement: Those systems with pertinent positive or pertinent negative responses have been documented in the HPI. ROS Other: All systems not noted in ROS Statement are negative. Constitutional: Denies: fever Eyes: Denies: eye pain ENT: Denies: ear pain Respiratory: Reports: as per HPI. Denies: cough Cardiovascular: Reports: as per HPI, chest pain, palpitations Endocrine: Denies: fatigue Gastrointestinal: Denies: abdominal pain Genitourinary: Denies: dysuria Musculoskeletal: Denies: back pain Skin: Denies: rash Neurological: Denies: weakness Past Medical History Past Medical History: Chest Pain / Angina, GERD/Reflux, Hyperlipidemia, Hypertension, Sleep Apnea/CPAP/BIPAP, Thyroid Disorder Additional Past Medical History / Comment(s): : 12/2014 lexiscan stress test negative and echo showed preserved L ventricular function with EF 60-65%, sleep apnea with CPAP set at 12 but has'nt been using.., cervical disc protrusion C2 and C3"spurs", colon polyps-hi grade dysplasia with removal, intermittent bilateral hand numbness and tingling, hypothyroidism, sinusitis, Salazar's Palsey yrs ago.emphysema, arthritis, History of Any Multi-Drug Resistant Organisms: None Reported Past Surgical History: Adenoidectomy, Breast Surgery, Heart Catheterization, Hernia Repair, Hysterectomy, Pacemaker, Tonsillectomy, Tubal Ligation Additional Past Surgical History / Comment(s): Umbilical hernia repair, colonoscopies with polypectomies, L breast core bx with microchipping.partial hysterectomy, 1 dental implant upper lest side. Past Anesthesia/Blood Transfusion Reactions: No Reported Reaction Past Psychological History: No Psychological Hx Reported Smoking Status: Current every day smoker Past Alcohol Use History: None Reported Past Drug Use History: None Reported - Past Family History Father Family Medical History: Cancer, Deep Vein Thrombosis (DVT), Vascular Disorder Additional Family Medical History / Comment(s): Father is alive and 89yrs old. He has had 2 cancers-sinus and pharyngeal. He has a peg tube. He has had bilateral carotid endartectomies, has jean-claude filter. Mother Family Medical History: Cancer Additional Family Medical History / Comment(s): Mother had breast cancer with mastectomy. She from a cancerous mass in her throat. General Exam Limitations: no limitations General appearance: alert, in no apparent distress Head exam: Present: atraumatic Eye exam: Present: normal appearance, PERRL ENT exam: Present: normal oropharynx Neck exam: Present: normal inspection Respiratory exam: Present: normal lung sounds bilaterally. Absent: chest wall tenderness Cardiovascular Exam: Present: regular rate, normal rhythm Expanded Peripheral pulses: 2+: Radial (R), Radial (L), Dorsalis Pedis (R), Dorsalis Pedis (L) GI/Abdominal exam: Present: soft. Absent: tenderness Extremities exam: Present: normal inspection. Absent: pedal edema, calf tenderness Neurological exam: Present: alert Psychiatric exam: Present: normal affect, normal mood Skin exam: Present: normal color Course Vital Signs 03/30/19 09:02 Temperature 98.3 F Pulse Rate 73 Respiratory 18 Rate Blood Pressure 150/88 O2 Sat by Pulse 100 Oximetry EKG Findings - EKG Comments: EKG Findings:: Paced rhythm with a rate of 62. NH 136. QRS 86. QT 416. QTc 422. Right axis. Normal QRS. No acute ST change. Medical Decision Making - Medical Decision Making Patient reevaluated and resting comfortably in bed. Some improvement with nitroglycerin. Patient and family updated on results and plan. Dr. Torres has been paged for admission. - Lab Data Result diagrams: 03/30/19 09:43 03/30/19 09:43 Lab Results 03/30/19 03/30/19 03/30/19 Range/Units 09:43 09:43 09:43 WBC 7.7 (3.8-10.6) k/uL RBC 4.84 (3.80-5.40) m/uL Hgb 12.7 (11.4-16.0) gm/dL Hct 41.1 (34.0-46.0) % MCV 85.1 (80.0-100.0) fL MCH 26.3 (25.0-35.0) pg MCHC 30.9 L (31.0-37.0) g/dL RDW 14.8 (11.5-15.5) % Plt Count 267 (150-450) k/uL Neutrophils % 50 % Lymphocytes % 42 % Monocytes % 4 % Eosinophils % 3 % Basophils % 1 % Neutrophils # 3.8 (1.3-7.7) k/uL Lymphocytes # 3.3 (1.0-4.8) k/uL Monocytes # 0.3 (0-1.0) k/uL Eosinophils # 0.2 (0-0.7) k/uL Basophils # 0.0 (0-0.2) k/uL PT 9.8 (9.0-12.0) sec INR 0.9 (<1.2) APTT 27.1 (22.0-30.0) sec D-Dimer 0.55 (<0.60) mg/L FEU Sodium 143 (137-145) mmol/L Potassium 4.0 (3.5-5.1) mmol/L Chloride 107 (98-107) mmol/L Carbon Dioxide 26 (22-30) mmol/L Anion Gap 10 mmol/L BUN 15 (7-17) mg/dL Creatinine 0.79 (0.52-1.04) mg/dL Est GFR (CKD-EPI)AfAm >90 (>60 ml/min/1.73 sqM) Est GFR (CKD-EPI)NonAf 84 (>60 ml/min/1.73 sqM) Glucose 103 H (74-99) mg/dL Calcium 9.7 (8.4-10.2) mg/dL Magnesium 2.0 (1.6-2.3) mg/dL Total Bilirubin 0.5 (0.2-1.3) mg/dL AST 26 (14-36) U/L ALT 31 (9-52) U/L Alkaline Phosphatase 113 (38-126) U/L Troponin I (0.000-0.034) ng/mL Total Protein 7.6 (6.3-8.2) g/dL Albumin 4.3 (3.5-5.0) g/dL 03/30/19 Range/Units 09:43 WBC (3.8-10.6) k/uL RBC (3.80-5.40) m/uL Hgb (11.4-16.0) gm/dL Hct (34.0-46.0) % MCV (80.0-100.0) fL MCH (25.0-35.0) pg MCHC (31.0-37.0) g/dL RDW (11.5-15.5) % Plt Count (150-450) k/uL Neutrophils % % Lymphocytes % % Monocytes % % Eosinophils % % Basophils % % Neutrophils # (1.3-7.7) k/uL Lymphocytes # (1.0-4.8) k/uL Monocytes # (0-1.0) k/uL Eosinophils # (0-0.7) k/uL Basophils # (0-0.2) k/uL PT (9.0-12.0) sec INR (<1.2) APTT (22.0-30.0) sec D-Dimer (<0.60) mg/L FEU Sodium (137-145) mmol/L Potassium (3.5-5.1) mmol/L Chloride (98-107) mmol/L Carbon Dioxide (22-30) mmol/L Anion Gap mmol/L BUN (7-17) mg/dL Creatinine (0.52-1.04) mg/dL Est GFR (CKD-EPI)AfAm (>60 ml/min/1.73 sqM) Est GFR (CKD-EPI)NonAf (>60 ml/min/1.73 sqM) Glucose (74-99) mg/dL Calcium (8.4-10.2) mg/dL Magnesium (1.6-2.3) mg/dL Total Bilirubin (0.2-1.3) mg/dL AST (14-36) U/L ALT (9-52) U/L Alkaline Phosphatase (38-126) U/L Troponin I <0.012 (0.000-0.034) ng/mL Total Protein (6.3-8.2) g/dL Albumin (3.5-5.0) g/dL - Radiology Data Radiology results: image reviewed (Chest x-ray shows no acute process) Disposition Clinical Impression: Chest pain Disposition[facility] Is patient prescribed a controlled substance at d/c from ED?: No Referrals: Jason Iyer DO [Primary Care Provider] - 1-2 days Decision Time: 11:19
[2019-03-30 10:04] LABS: Basophils % (A) 1 %; Eosinophils # (A) 0.2 k/uL (0-0.7); Eosinophils % (A) 3 %; HCT 41.1 % (34.0-46.0); HGB 12.7 gm/dL (11.4-16.0); Lymphocytes # (A) 3.3 k/uL (1.0-4.8); Lymphocytes % (A) 42 %; MCH 26.3 pg (25.0-35.0); MCHC 30.9 g/dL (31.0-37.0); MCV 85.1 fL (80.0-100.0); Mean Platelet Volume 7.8; Monocytes # (A) 0.3 k/uL (0-1.0); Monocytes % (A) 4 %; Neutrophils # (A) 3.8 k/uL (1.3-7.7); Neutrophils % (A) 50 %; Platelet Count 267 k/uL (150-450); RBC 4.84 m/uL (3.80-5.40); RDW 14.8 % (11.5-15.5); WBC 7.7 k/uL (3.8-10.6)
[2019-03-30 10:08] LABS: ALT 31 U/L (9-52); AST 26 U/L (14-36); African American GFR (CKD) >90 (>60 ml/min/1.73 sqM); Albumin 4.3 g/dL (3.5-5.0); Alkaline Phosphatase 113 U/L (38-126); Anion Gap 10 mmol/L; Blood Urea Nitrogen 15 mg/dL (7-17); Calcium 9.7 mg/dL (8.4-10.2); Carbon Dioxide 26 mmol/L (22-30); Chloride 107 mmol/L (98-107); Glucose 103 mg/dL (74-99); Sodium 143 mmol/L (137-145); Total Bilirubin 0.5 mg/dL (0.2-1.3); Total Protein 7.6 g/dL (6.3-8.2)
[2019-03-30 10:13] LABS: D-Dimer 0.55 mg/L FEU (<0.60); INR 0.9 (<1.2); Partial Thromboplastin Time 27.1 sec (22.0-30.0); Prothrombin Time 9.8 sec (9.0-12.0)
--- NOTE | 2019-03-30 11:10 | XR ---
EXAMINATION TYPE: XR chest 2V DATE OF EXAM: 03/30/2019 COMPARISON: Chest radiograph 05/20/2018 HISTORY: Chest pain and right arm numbness TECHNIQUE: Frontal and lateral views of the chest are obtained. FINDINGS: Cardiac pacing leads present, are prominent projects over the left chest wall. Cardiomedia stinal silhouette is normal. Lungs are clear. No pleural effusion or pneumothorax. IMPRESSION: No acute cardiopulmonary process.
[2019-03-30] MEDS ORDERED: NITROGLYCERIN SL TABS 0.4 MG TAB SUBLINGUAL PRN (11:19)
[2019-03-30] MEDS: NITROGLYCERIN OINT 1 INCH/GM PACKET TOPICAL SCH ×3 (12:50→23:34)
[2019-03-30 13:30] VITALS: BMI 46.9
[2019-03-30 19:18] VITALS: RESP 18
[2019-03-30] MEDS ORDERED: ACETAMINOPHEN TAB 325 MG TAB PO PRN (19:55)
[2019-03-30] MEDS: METOPROLOL TARTRATE 25 MG TAB PO SCH (20:00)
[2019-03-30] MEDS: amLODIPine 5 MG TAB PO SCH (20:00)
[2019-03-30] MEDS ORDERED: predniSONE 20 MG TAB PO STA (21:52)
[2019-03-30] MEDS ORDERED: ENOXAPARIN 40 MG/0.4 ML SYRINGE SQ SCH (22:00)
--- NOTE | 2019-03-30 22:01 | P.HPIM ---
History of Present Illness H&P Date: 03/30/19 Chief Complaint: Chest pressure History of presenting complaint: This is a pleasant 59-year-old patient follows a Dr. Iyer. Chronic stable medical conditions include COPD, GERD, hypertension, hyperlipidemia, osteoarthritis, obstructive sleep apnea hypothyroid. Arthritis. Patient smokes about half a pack a day for good 37 years. In April 2018 patient had a cardiac catheterization Dr. Romo. Found normal coronaries. Patient also the biventricular pacemaker for AV block. Patient presents with 3-4 days of chest heaviness. At her baseline patient's current shortness of breath. No fever no chills. Appetite is fair. Slight cough. No edema. The pressure does not radiate to the arm or neck. No dizziness no lightheadedness. Review of systems: GEN.: Tired EYES: None HEENT: None NECK: None RESPIRATORY: As above CARDIOVASCULAR: As above GASTROINTESTINAL: None GENITOURINARY: None MUSCULOSKELETAL: Chronic neck pain LYMPHATICS: None HEMATOLOGICAL: None PSYCHIATRY: None NEUROLOGICAL: None Past medical history: COPD, GERD, hypertension, hyperlipidemia, osteoarthritis, obstructive sleep apnea, hypothyroid, pacemaker for AV block. Negative cardiac catheterization in April 2018. Social history: Patient is a . Smoking a half a pack a day for close to 37 years. 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 Family history: Father had sinus and pharyngeal cancer. Physical examination: VITAL SIGNS: 98.3, 73, 18, 150/88, 100% room air GENERAL: BMI 44.6, sitting at the edge of the bed not in distress. EYES: Pupils equal. Conjunctiva normal. HEENT: External appearance of nose and ears normal, oral cavity grossly normal. NECK: JVD not raised; masses not palpable. HEART: First and second heart sounds are normal; minimal edema. LUNGS: Respiratory rate normal; diminished breath sounds, prolonged expiration. ABDOMEN: Soft, nontender, liver spleen not palpable, no masses palpable. PSYCH: Alert and oriented x3; mood and affect normal. NEUROLOGICAL: Cranial nerves grossly intact; no facial asymmetry, power and sensation grossly intact. LYMPHATICS: No lymph nodes palpable in the axilla and neck INVESTIGATIONS, reviewed in the clinical context: White count 7.7 hemoglobin 12.7 potassium 4.0 BUN 15 creatinine 0.79 EKG tracing personally reviewed by wa-paced rhythm Chest x-ray film personally reviewed by me-lung barbour are clear Assessment: -This is a patient presents with chest heaviness going to last 3-4 year days. Long-standing smoker. Most likely his symptoms of emphysema and could be possible secondary pulmonary hypertension. She did have a cardiac catheterization in April of last symptoms was negative. Patient should also have a pacemaker check -Morbid obesity BMI 44.6 -Permanent pacemaker for AV block -GERD -Primary osteoarthritis -Obstructive sleep apnea uses CPAP -Hypothyroid Plan: 3 cardiac enzymes will be done. Patient be started on bronchodilators. Inhaled steroids. Home medications resumed. Cardiology was consulted. Smoke cessation counseling: This was done with the patient. Nicotine patch is being given. More than 3 minutes was spent on this for aspect of the case Past Medical History Past Medical History: Coronary Artery Disease (CAD), Chest Pain / Angina, COPD, GERD/Reflux, Hyperlipidemia, Hypertension, Osteoarthritis (OA), Sleep Apnea/CPA P/BIPAP, Thyroid Disorder Additional Past Medical History / Comment(s): : 12/2014 lexiscan stress test negative and echo showed preserved L ventricular function with EF 60-65%, sleep apnea with CPAP set at 12, cervical disc protrusion C2 and C3"spurs", colon polyps-hi grade dysplasia with removal, intermittent bilateral hand numbness and tingling, hypothyroidism, sinusitis, Salazar's Palsey yrs ago.emphysema, arthritis, History of Any Multi-Drug Resistant Organisms: None Reported Past Surgical History: Adenoidectomy, Breast Surgery, Heart Catheterization, Hernia Repair, Hysterectomy, Pacemaker, Tonsillectomy, Tubal Ligation Additional Past Surgical History / Comment(s): Umbilical hernia repair, colonoscopies with polypectomies, L breast core bx with microchipping.partial hysterectomy, 1 dental implant upper lest side. Past Anesthesia/Blood Transfusion Reactions: No Reported Reaction Type of Cardiac Device: Permanent Pacemaker Device Placement Date:: 04/2018 Past Psychological History: Depression Additional Psychological History / Comment(s): pt lost her spouse in december 2016 had been together since she was 19,lives w/son and 14 yr old granddaughter. She is independent. 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 She has a Cpap machine at home Smoking Status: Current every day smoker Past Alcohol Use History: None Reported Additional Past Alcohol Use History / Comment(s): Pt states she started smoking when she was 22 yrs old . smoking 08/19 ppd Past Drug Use History: None Reported - Past Family History Father Family Medical History: Cancer, Deep Vein Thrombosis (DVT), Vascular Disorder Additional Family Medical History / Comment(s): Father is alive and 89yrs old. He has had 2 cancers-sinus and pharyngeal. He has a peg tube. He has had bilateral carotid endartectomies, has jean-claude filter. Mother Family Medical History: Cancer Additional Family Medical History / Comment(s): Mother had breast cancer with mastectomy. She from a cancerous mass in her throat. Medications and Allergies Home Medications Medication Instructions Recorded Confirmed Type Ergocalciferol (Vitamin D2) 50,000 unit PO MO 01/25/15 03/30/19 History [Drisdol] Biotin 5 mg PO DAILY 09/28/17 03/30/19 History Furosemide [Lasix] 40 mg PO DAILY 09/28/17 03/30/19 History Levothyroxine Sodium 150 mcg PO MOTUWETHFR 05/11/18 03/30/19 History Levothyroxine Sodium 75 mcg PO SUSA 05/17/18 03/30/19 History amLODIPine [Norvasc] 5 mg PO BID #60 tab 05/20/18 03/30/19 Rx Aspirin 81 mg PO HS 03/30/19 03/30/19 History Metoprolol Tartrate [Lopressor] 25 mg PO BID 03/30/19 03/30/19 History Allergies Allergy/AdvReac Type Severity Reaction Status Date / Time No Known Allergies Allergy Verified 03/30/19 09:16 Physical Exam Vitals: Vital Signs Temp Pulse Pulse Resp BP BP Pulse Ox 03/30/19 20:00 18 03/30/19 19:17 98.2 F 72 18 110/76 97 03/30/19 16:00 98.0 F 62 16 105/66 98 03/30/19 12:54 98.1 F 63 16 116/75 98 03/30/19 11:30 60 17 110/63 99 03/30/19 11:00 55 L 18 102/61 99 03/30/19 10:30 67 17 127/78 97 03/30/19 10:00 65 18 144/80 03/30/19 09:02 98.3 F 73 18 150/88 100 Intake and Output 03/30/19 03/30/19 03/30/19 06:59 14:59 22:59 Other: Voiding Method Toilet Toilet # Voids 1 Weight 117.934 kg Results CBC & Chem 7: 03/30/19 09:43 03/30/19 09:43 Labs: Abnormal Lab Results - Last 24 Hours (Table) 03/30/19 03/30/19 Range/Units 09:43 09:43 MCHC 30.9 L (31.0-37.0) g/dL Glucose 103 H (74-99) mg/dL Thrombosis Risk Factor Assmnt - Choose All That Apply Any of the Below Risk Factors Present?: Yes Each Factor Represents 1 point: Age 41-60 years, Obesity (BMI >25) Other Risk Factors: Yes Each Risk Factor Represents 3 Points: Family history of DVT/PE Other congenital or acquired thrombophilia - If yes, enter type in comment: No Thrombosis Risk Factor Assessment Total Risk Factor Score: 5 Thrombosis Risk Factor Assessment Level: High Risk
[2019-03-30] MEDS: IPRATROPIUM-ALBUTEROL 3 ML NEB INHALATION SCH (22:30)
[2019-03-30] MEDS: BUDESONIDE 1 MG/2 ML NEBU INHALATION SCH (22:31)
[2019-03-30] MEDS: NICOTINE 14MG/24HR PATCH TRANSDERM SCH (23:34)
[2019-03-31 03:02] LABS: Cholesterol 217 mg/dL (<200); HDL Cholesterol 34 mg/dL (40-60); LDL Cholesterol,Calculated 152 mg/dL (0-99); Triglycerides 156 mg/dL (<150)
[2019-03-31] MEDS: NITROGLYCERIN OINT 1 INCH/GM PACKET TOPICAL SCH (03:51)
[2019-03-31] MEDS ORDERED: LEVOTHYROXINE 75 MCG TAB PO SCH (06:30)
[2019-03-31 07:18] VITALS: BP 113/75; TEMP 97.7
[2019-03-31] MEDS: NICOTINE 14MG/24HR PATCH TRANSDERM SCH (07:36)
[2019-03-31] MEDS: BUDESONIDE 1 MG/2 ML NEBU INHALATION SCH (07:47)
[2019-03-31] MEDS: IPRATROPIUM-ALBUTEROL 3 ML NEB INHALATION SCH ×2 (07:47→11:23)
[2019-03-31 07:49] VITALS: PULSE 72
[2019-03-31] MEDS ORDERED: ASPIRIN 325 MG TAB PO SCH (09:00)
[2019-03-31] MEDS ORDERED: FUROSEMIDE 40 MG TAB PO SCH (09:00)
[2019-03-31] MEDS: amLODIPine 5 MG TAB PO SCH (10:20)
[2019-03-31] MEDS: METOPROLOL TARTRATE 25 MG TAB PO SCH (10:20)
--- NOTE | 2019-03-31 16:54 | P.DS ---
Providers Date of admission: 03/30/19 11:19 Expected date of discharge: 03/31/19 Attending physician: Bolivar Torres Consults: 03/30/19 11:19 Consult Physician Urgent Consulting Provider: Abdoulaye Harrington Consult Reason/Comments: cp Do you want consulting provider notified?: Yes Primary care physician: [facility] Course: Chief Complaint: Chest pressure History of presenting complaint: This is a pleasant 59-year-old patient follows a Dr. Iyer. Chronic stable medical conditions include COPD, GERD, hypertension, hyperlipidemia, osteo arthritis, obstructive sleep apnea hypothyroid. Arthritis. Patient smokes about half a pack a day for good 37 years. In April 2018 patient had a cardiac catheterization Dr. Romo. Found normal coronaries. Patient also the biventricular pacemaker for AV block. Patient presents with 3-4 days of chest heaviness. At her baseline patient's current shortness of breath. No fever no chills. Appetite is fair. Slight cough. No edema. The pressure does not radiate to the arm or neck. No dizziness no lightheadedness. Seen by cardiology. Okay to be discharged. Patient advised against smoking. Treated for COPD. Consultation: [facility] Physical examination: VITAL SIGNS: 97.7, 71, 18, 113/75, 99% room air GENERAL: BMI 44.6, sitting up, comfortable. EYES: Pupils equal. Conjunctiva normal. HEENT: External appearance of nose and ears normal, oral cavity grossly normal. NECK: JVD not raised; masses not palpable. HEART: First and second heart sounds are normal; minimal edema. LUNGS: Respiratory rate normal; diminished breath sounds, prolonged expiration. ABDOMEN: Soft, nontender, liver spleen not palpable, no masses palpable. PSYCH: Alert and oriented x3; mood and affect normal. INVESTIGATIONS, reviewed in the clinical context: Troponin 3 negative LDL 152 White count 7.7 hemoglobin 12.7 potassium 4.0 BUN 15 creatinine 0.79 EKG tracing personally reviewed by me-paced rhythm Chest x-ray film personally reviewed by me-lung barbour are clear Discharge diagnosis: -COPD in a current smoker Atypical anterior chest pain -Morbid obesity BMI 44.6 -Permanent pacemaker for AV block -GERD -Primary osteoarthritis -Obstructive sleep apnea uses CPAP -Hypothyroid Disposition: Home Patient Condition at Discharge: Stable Plan - Discharge Summary Discharge Rx Participant: Yes New Discharge Prescriptions: New Ipratropium/Albuterol Sulfate [Combivent Respimat Inhaler] 1 puff INHALATION QID #1 inhaler Nicotine 14Mg/24Hr Patch [Habitrol] 1 patch TRANSDERM DAILY #14 patch Continue Ergocalciferol (Vitamin D2) [Drisdol] 50,000 unit PO MO Furosemide [Lasix] 40 mg PO DAILY Biotin 5 mg PO DAILY Levothyroxine Sodium 150 mcg PO MOTUWETHFR Levothyroxine Sodium 75 mcg PO SUSA amLODIPine [Norvasc] 5 mg PO BID #60 tab Metoprolol Tartrate [Lopressor] 25 mg PO BID Aspirin 81 mg PO HS Discharge Medication List Ergocalciferol (Vitamin D2) [Drisdol] 50,000 unit PO MO 01/25/15 [History] Biotin 5 mg PO DAILY 09/28/17 [History] Furosemide [Lasix] 40 mg PO DAILY 09/28/17 [History] Levothyroxine Sodium 150 mcg PO MOTUWETHFR 05/11/18 [History] Levothyroxine Sodium 75 mcg PO SUSA 05/17/18 [History] amLODIPine [Norvasc] 5 mg PO BID #60 tab 05/20/18 [Rx] Aspirin 81 mg PO HS 03/30/19 [History] Metoprolol Tartrate [Lopressor] 25 mg PO BID 03/30/19 [History] Ipratropium/Albuterol Sulfate [Combivent Respimat Inhaler] 1 puff INHALATION QID #1 inhaler 03/31/19 [Rx] Nicotine 14Mg/24Hr Patch [Habitrol] 1 patch TRANSDERM DAILY #14 patch 03/31/19 [Rx] Follow up Appointment(s)/Referral(s): Jason Iyer DO [Primary Care Provider] - 1-2 days Chris Romo MD [STAFF PHYSICIAN] - 1 Week Patient Instructions/Handouts: Chest Pain (DC) Discharge Disposition: HOME SELF-CARE
--- NOTE | 2019-03-31 22:02 | CONS ---
CONSULTATION Janey Wu is a 59-year-old lady with a known history of hypertension, hyperlipidemia, AV block for which she received a biventricular pacemaker that was placed by Dr. Peña in April of last year. She also had a cardiac cath at that time, which did not reveal any obstructive CAD. She came into the hospital with episode of chest pain. Pain is sharp in nature. She has sometimes describes it as a pressure that seems to persist and has no relation to physical activity. She can have this symptom when she is resting watching TV or when she does any activity. The quality of the pain is very atypical, does not suggest angina. She has hypothyroidism, hypertension, and an AV block for which she has a biventricular pacemaker. She is resting comfortably without symptoms. Coronary angiography in April of 2018 did not reveal any significant abnormalities. PAST MEDICAL HISTORY: 1. Hypertension. 2. AV block for which she has a permanent biventricular pacemaker. 3. Hyperlipidemia. 4. Nicotine addiction for which she is trying a patch. MEDICATIONS: At home include levothyroxine, aspirin, vitamin supplements, amlodipine, metoprolol tartrate 25 mg b.i.d., Lasix 40 mg daily, nicotine patch. ALLERGIES: None. PHYSICAL EXAMINATION: Blood pressure is 130/70, pulse rate is about 70 per minute, regular. HEENT unremarkable. Fundus was not examined by me. Neck is supple. There is no JVD. I do not hear a carotid bruit. There is no thyromegaly. Heart exam reveals S1, S2 heard normally. There is a short systolic murmur at the left sternal border. Lungs are clear. Abdomen is soft, nontender. Lower extremities reveal palpable pulses. No edema. Central nervous system is normal. EKG revealed a sinus mechanism with a ventricular paced rhythm. LABORATORY DATA: Revealed unremarkable troponins. IMPRESSION: 1. Atypical chest pain. 2. Hypertension. 3. Hyperlipidemia. 4. History of smoking. 5. History of AV block with a biventricular pacemaker. 6. Normal coronaries based on cardiac cath in April. RECOMMENDATIONS: I am recommending that we increase activity, discharge the patient, have her follow up with Dr. Romo as an outpatient. No intervention is necessary. Her pain seems atypical and recent cardiac cath within 10 months was unremarkable. Thank you very much for the consult. MMODL / IJN: [id number] /
[2019-04-01] MEDS ORDERED: ASPIRIN 81 MG PO SCH (09:00)
[2019-04-05] MEDS ORDERED: LEVOTHYROXINE 75 MCG TAB PO SCH (06:30)
== END 2019-03-31 13:00 | disposition home or self-care (01) ==
LOC: EC 09:00 → 1SOBS 11:19
PROVIDERS: ADMIT Hospitalist; ATTEND Hospitalist
DX: R07.89 Other chest pain (principal); J43.9 Emphysema, unspecified; M19.91 Primary osteoarthritis, unspecified site; E03.9 Hypothyroidism, unspecified; G89.29 Other chronic pain; M50.20 Other cervical disc displacement, unspecified cervical region; K21.9 Gastro-esophageal reflux disease without esophagitis; G47.33 Obstructive sleep apnea (adult) (pediatric); E78.5 Hyperlipidemia, unspecified; I10 Essential (primary) hypertension; F17.210 Nicotine dependence, cigarettes, uncomplicated; I44.30 Unspecified atrioventricular block; F32.9 Major depressive disorder, single episode, unspecified; E66.01 Morbid (severe) obesity due to excess calories; Z68.41 Body mass index [BMI] 40.0-44.9, adult; R00.2 Palpitations; R20.2 Paresthesia of skin; R20.0 Anesthesia of skin; Z99.89 Dependence on other enabling machines and devices; Z79.899 Other long term (current) drug therapy; Z79.82 Long term (current) use of aspirin; Z79.890 Hormone replacement therapy; Z86.010 Personal history of colon polyps; Z90.711 Acquired absence of uterus with remaining cervical stump; Z95.0 Presence of cardiac pacemaker; Z91.19 Patient's noncompliance with other medical treatment and regimen; Z86.69 Personal history of other diseases of the nervous system and sense organs; Z80.3 Family history of malignant neoplasm of breast; Z80.0 Family history of malignant neoplasm of digestive organs; Z80.2 Family history of malignant neoplasm of other respiratory and intrathoracic organs; Z82.49 Family history of ischemic heart disease and other diseases of the circulatory system; Z83.2 Family history of diseases of the blood and blood-forming organs and certain disorders involving the immune mechanism
CPT/HCPCS: 96372; 99285; 36415; 94640 ×2; 93005; 85379; 80061; 80053; 83735; 84484; 85025; 85610; 85730; 71046; G0378 ×2; S4990 ×2; J1650; J7512

== ENCOUNTER → 2019-04-03 | Outpatient (CLI) | payer MEDICAID ==
--- NOTE | 2019-04-04 10:15 | MM ---
Reason for exam: screening (asymptomatic). Last mammogram was performed 1 year and 7 months ago. History: Patient is postmenopausal. Family history of breast cancer in mother at age 53. Benign left mammotome panel of the left breast, July 26, 2010. Took hormonal contraceptives for 5 years beginning at age 22. Physical Findings: A clinical breast exam by your physician is recommended on an annual basis and results should be correlated with mammographic findings. MG Screening Mammo w CAD Bilateral CC and MLO view(s) were taken. Prior study comparison: September 03, 2017, bilateral MG screening mammo w CAD. August 02, 2016, bilateral MG screening mammo w CAD. There are scattered fibroglandular densities. Stable right superior middle depth asymmetry is stable. Left cardiac device. Left biopsy marker noted. ASSESSMENT: Benign, BI-RAD 2 RECOMMENDATION: Routine screening mammogram of both breasts in 1 year.
== END | disposition home or self-care (01) ==
LOC: RADMAMWWP 06:42
PROVIDERS: ATTEND Family Medicine
DX: Z12.31 Encounter for screening mammogram for malignant neoplasm of breast (principal)
CPT/HCPCS: 77067

== ENCOUNTER 2019-05-23 10:52 | Day surgery (SDC) | payer MEDICAID ==
[2019-05-22 09:55] VITALS: BMI 44.6
[~2019-05-23 10:52] MED LIST: LACTATED RINGERS 1,000 ML IV SCH; LIDOCAINE 1% 20 ML VIAL (10MG/ML) FOR IV START INTRADERMA PRN
[2019-05-23 11:34] VITALS: RESP 16; TEMP 97.8
[2019-05-23] MEDS ORDERED: PROPOFOL 10 MG/ML 20 ML VIAL IV ONE (12:13)
--- NOTE | 2019-05-23 12:42 | P.PCN ---
Date of Procedure: 05/23/19 Procedure(s) Performed: Brief history: Patient is a pleasant 59-year-old white female scheduled for an elective upper endoscopy as well as colonoscopy as a part of evaluation of abdominal pain, abdominal bloating and atypical chest pain for the last few months duration. Procedure performed: Esophagogastroduodenoscopy with biopsy Colonoscopy with biopsy Preoperative diagnosis: Atypical chest pain Change in bowel habits/abdominal bloating and prior history of colon polyps Anesthesia: MAC Procedure: After informed consent was obtained from the patient was brought into the endoscopy unit and IV sedation was administered by anesthesia under continuous monitoring. Initially upper endoscopy was done. The Olympus GF 160 video endoscope was inserted inserted into the mouth and esophagus intubated without any difficulty and was gradually advanced into the stomach and duodenum and carefully examined. The bulb and second part of the duodenum appeared normal. The scope was then withdrawn into the stomach adequately insufflated with air and upon careful examination the antrum had mild gastritis and biopsies were done from this area. The body, cardia and fundus appeared normal. The scope was then withdrawn into the esophagus. The GE junction was located at 40 cm to the incisors. It appeared regular with no erythema erosions or ulcerations. Abscesses were done from the distal esophagus. Rest of the esophagus appeared normal. Patient tolerated the procedure well. At this time the patient continued to remain sedation. Initial digital rectal examination was normal. Olympus CF 160 video colonoscope was then inserted into the rectum and gradually advanced to the cecum without any difficulty. Careful examination was performed as the scope was gradually being withdrawn. The prep was excellent. The cecum appeared normal. In the ascending colon there was a 2-3 mm polyp that was removed by cold biopsy. Rest of the, ascending colon, transverse colon, descending colon, sigmoid colon and rectum appeared normal. Retroflexion was performed in the rectum and no lesions were noted. Patient tolerated the procedure well. Impression: 1. Upper Endoscopy revealed mild antral gastritis but no evidence of esophagitis or peptic ulcer disease 2. Colonoscopy revealed a 2-3 mm sessile ascending colon polyp that was removed by cold biopsy. Rest of the colon appeared normal. Recommendations: Findings of this examination were discussed with the patient as well as a fami ly. She was advised to follow with the biopsy results. She will start MiraLAX 1 scoop twice daily for the chronic constipation. She was advised to follow up in office as needed. She can have a repeat screening colonoscopy in 5 years.
[2019-05-23 13:27] VITALS: BP 146/77; PULSE 63
== END 2019-05-23 13:43 | disposition home or self-care (01) ==
LOC: ORWHC2ENDO 10:52
PROVIDERS: ATTEND Internal Medicine Gastroenterology
DX: K29.70 Gastritis, unspecified, without bleeding (principal); K31.9 Disease of stomach and duodenum, unspecified; Z86.010 Personal history of colon polyps; Z87.19 Personal history of other diseases of the digestive system; K21.0 Gastro-esophageal reflux disease with esophagitis; D12.2 Benign neoplasm of ascending colon; I25.10 Atherosclerotic heart disease of native coronary artery without angina pectoris; I10 Essential (primary) hypertension; E78.5 Hyperlipidemia, unspecified; J44.9 Chronic obstructive pulmonary disease, unspecified; G47.33 Obstructive sleep apnea (adult) (pediatric); E07.9 Disorder of thyroid, unspecified; Z79.82 Long term (current) use of aspirin; Z79.899 Other long term (current) drug therapy; Z79.890 Hormone replacement therapy; Z95.0 Presence of cardiac pacemaker
CPT/HCPCS: 88305; 45380; 43239; J2704

== ENCOUNTER → 2019-09-26 | Outpatient (CLI) | payer MEDICAID ==
[2019-09-26 16:38] LABS: Basophils % (A) 0 %; Eosinophils # (A) 0.2 k/uL (0-0.7); Eosinophils % (A) 2 %; HCT 43.6 % (34.0-46.0); HGB 13.5 gm/dL (11.4-16.0); Hypochromasia Slight; Lymphocytes # (A) 3.3 k/uL (1.0-4.8); Lymphocytes % (A) 43 %; MCH 27.5 pg (25.0-35.0); MCHC 30.9 g/dL (31.0-37.0); MCV 88.9 fL (80.0-100.0); Mean Platelet Volume 9.9; Monocytes # (A) 0.3 k/uL (0-1.0); Monocytes % (A) 4 %; Neutrophils # (A) 3.8 k/uL (1.3-7.7); Neutrophils % (A) 49 %; Platelet Count 256 k/uL (150-450); RDW 13.8 % (11.5-15.5); WBC 7.6 k/uL (3.8-10.6)
[2019-09-27 00:06] LABS: African American GFR (CKD) 82.3 (60.0-200.0); Albumin 4.9 g/dL (3.80-4.90); Albumin/Globulin Ratio 2.04 (1.60-3.17); BUN/Creat Ratio 12.22 Ratio (12.00-20.00); Calcium 9.8 mg/dL (8.7-10.3); Chol/HDL Ratio 5.41; Globulin 2.4 g/dL (1.6-3.3); LDL Cholesterol,Calculated 175.8 mg/dL (0.0-131.0); Potassium 3.8 mmol/L (3.5-5.5); Total Bilirubin 0.5 mg/dL (0.3-1.2); Total Protein 7.3 g/dL (6.2-8.2); VLDL Calculation 27.2 mg/dL (5.00-40.00)
[2019-09-27 00:15] LABS: T4, Free (Free Thyroxine) 1.2 ng/dL (0.80-1.80)
[2019-09-27 02:41] LABS: Hemoglobin A1C 5.4 % (4.0-6.0)
== END | disposition home or self-care (01) ==
LOC: LABWHC1 14:59
PROVIDERS: ATTEND Family Medicine
DX: I10 Essential (primary) hypertension (principal); E78.5 Hyperlipidemia, unspecified; E55.9 Vitamin D deficiency, unspecified; E03.9 Hypothyroidism, unspecified; E66.9 Obesity, unspecified
CPT/HCPCS: 36415; 80053; 80061; 82306; 83036; 83735; 84439; 84443; 84481; 85025

== ENCOUNTER → 2019-09-26 | Outpatient (CLI) | payer MEDICAID ==
--- NOTE | 2019-09-28 08:32 | ECHOF ---
Referral Reason:R06.02 Shortness of breath MEASUREMENTS -------- HEIGHT: 162.6 cm WEIGHT: 125.2 kg BP: IVSd: 1.0 cm (0.6 - 1.1) LVIDd: 4.1 cm (3.9 - 5.3) LVPWd: 1.1 cm (0.6 - 1.1) IVSs: 1.7 cm LVIDs: 1.7 cm LVPWs: 2.0 cm RVIDd: 2.7 cm (< 3.3) LAESV Index (A-L): 16.46 ml/m Ao Diam: 2.7 cm (2.0 - 3.7) LA Diam: 3.3 cm (2.7 - 3.8) AV Cusp: 2.0 cm (1.5 - 2.6) EPSS: 0.6 cm MV E Aleksandar: 0.84 m/s MV DecT: 248 ms MV A Aleksandar: 0.58 m/s MV E/A Ratio: 1.46 RAP: 5.00 mmHg RVSP: 29.36 mmHg MV EF SLOPE: 63.94 mm/s (70 - 150) MV EXCURSION: 20.13 mm (> 18.000) FINDINGS -------- Sinus rhythm. Pacerwire seen in RV and RA. This was a technically adequate study. The left ventricular size is normal. Left ventricular wall thickness is normal. Overall left vent ricular systolic function is normal with, an EF between 55 - 60 %. The right ventricle is normal in size. The left atrial size is normal. Normal LA size by volume 22+/-6 ml/m2. The right atrial size is normal. The aortic valve is trileaflet and appears structurally normal. The mitral valve is normal. There is trace mitral regurgitation. The tricuspid valve appears structurally normal. Trace tricuspid regurgitation present. Right saritha tricular systolic pressure is normal at < 35 mmHg. There is no pulmonic regurgitation present. The aortic root size is normal. Normal inferior vena cava with normal inspiratory collapse consistent with estimated right atrial pre ssure of 5 mmHg. There is no pericardial effusion. CONCLUSIONS -------- 1. Sinus rhythm. 2. Pacerwire seen in RV and RA. 3. This was a technically adequate study. 4. The left ventricular size is normal. 5. Left ventricular wall thickness is normal. 6. Overall left ventricular systolic function is normal with, an EF between 55 - 60 %. 7. The right ventricle is normal in size. 8. The left atrial size is normal. 9. Normal LA size by volume 22+/-6 ml/m2. 10. The right atrial size is normal. 11. The aortic valve is trileaflet and appears structurally normal. 12. The mitral valve is normal. 13. There is trace mitral regurgitation. 14. The tricuspid valve appears structurally normal. 15. Trace tricuspid regurgitation present. 16. Right ventricular systolic pressure is normal at < 35 mmHg. 17. There is no pulmonic regurgitation present. 18. The aortic root size is normal. 19. Normal inferior vena cava with normal inspiratory collapse consistent with estimated right atrial pressure of 5 mmHg. 20. There is no pericardial effusion. RETORT FIREMAN: Anai Leavitt RDCS
== END | disposition home or self-care (01) ==
LOC: RADECHMAIN 14:20
PROVIDERS: ATTEND Internal Medicine Interventional Cardiology
DX: R06.02 Shortness of breath (principal); I25.10 Atherosclerotic heart disease of native coronary artery without angina pectoris
CPT/HCPCS: 93306

== ENCOUNTER → 2019-12-31 | Outpatient (CLI) | payer MEDICAID ==
[2019-12-31 17:36] LABS: T4, Free (Free Thyroxine) 1.4 ng/dL (0.80-1.80)
== END | disposition home or self-care (01) ==
LOC: LABWHC1 08:30
PROVIDERS: ATTEND Physician Assistant
DX: E03.9 Hypothyroidism, unspecified (principal)
CPT/HCPCS: 36415; 84439; 84443; 84481

== ENCOUNTER → 2020-05-05 | Outpatient (CLI) | payer MEDICAID ==
[2020-05-05 09:24] LABS: HCT 42.5 % (34.0-46.0); HGB 13.2 gm/dL (11.4-16.0); Hypochromasia Moderate; MCH 27.9 pg (25.0-35.0); MCHC 31.1 g/dL (31.0-37.0); MCV 89.9 fL (80.0-100.0); Mean Platelet Volume 9.1; Platelet Count 254 k/uL (150-450); RBC 4.73 m/uL (3.80-5.40); RDW 14.3 % (11.5-15.5); WBC 8.2 k/uL (3.8-10.6)
[2020-05-05 09:32] LABS: Appearance,Urine Clear (Clear); Bilirubin,Urine Negative (Negative); Blood,Urine Negative (Negative); Color,Urine Yellow; Glucose,Urine (UA) Negative (Negative); Ketones,Urine Negative (Negative); Leukocyte Esterase,Urine Negative (Negative); Nitrite,Urine Negative (Negative); PH, Urine 5.5 (5.0-8.0); Protein,Urine Trace (Negative); Specific Gravity,Urine 1.025 (1.001-1.035); Urobilinogen,Urine <2.0 mg/dL (<2.0)
[2020-05-05 09:36] LABS: Albumin 4.2 g/dL (3.5-5.0); Calcium 9.6 mg/dL (8.4-10.2); Potassium 4.3 mmol/L (3.5-5.1); Total Bilirubin 0.6 mg/dL (0.2-1.3); Total Protein 7.4 g/dL (6.3-8.2)
[2020-05-05 09:48] LABS: T4, Free (Free Thyroxine) 1.55 ng/dL (0.78-2.19)
[2020-05-05 10:58] LABS: Erythrocyte Sedimentation Rate 28 mm/hr (0-20)
[2020-05-05 21:34] LABS: Hemoglobin A1C 5.6 % (4.0-6.0)
--- NOTE | 2020-05-06 08:27 | MM ---
Reason for exam: screening (asymptomatic). Last mammogram was performed 1 year and 1 month ago. History: Patient is postmenopausal. Family history of breast cancer in mother at age 53. Benign left mammotome panel of the left breast, July 26, 2010. Took hormonal contraceptives for 5 years beginning at age 22. Physical Findings: A clinical breast exam by your physician is recommended on an annual basis and results should be correlated with mammographic findings. MG Screening Mammo w CAD Bilateral CC and MLO view(s) were taken. Prior study comparison: April 03, 2019, bilateral MG screening mammo w CAD. September 03, 2017, bilateral MG screening mammo w CAD. There are scattered fibroglandular densities. Previous mammotome biopsy in the left breast. There is no discrete abnormality. Left axillary pacemaker redemonstrated. ASSESSMENT: Negative, BI-RAD 1 RECOMMENDATION: Routine screening mammogram of both breasts in 1 year.
== END | disposition home or self-care (01) ==
LOC: RADMAMWWP 07:40
PROVIDERS: ATTEND Family Medicine
DX: Z12.31 Encounter for screening mammogram for malignant neoplasm of breast (principal); Z00.00 Encounter for general adult medical examination without abnormal findings; E66.01 Morbid (severe) obesity due to excess calories; M35.3 Polymyalgia rheumatica; E03.9 Hypothyroidism, unspecified
CPT/HCPCS: 77067; 80053; 80061; 81003; 82306; 82550; 82607; 83036; 84439; 84443; 85027; 85652

== ENCOUNTER → 2020-11-03 | Outpatient (CLI) | payer MEDICAID ==
--- NOTE | 2020-11-03 20:47 | CONS ---
CONSULTATION DATE OF SERVICE: 11/03/2020 This 60-year-old lady has [facility] for obstructive sleep apnea- hypopnea syndrome. HISTORY OF PRESENT ILLNESS/SLEEP-WAKE EVALUATION: The patient has history of obstructive sleep apnea since 2010, and at the beginning she used her CPAP equipment, but for last year she stopped using her equipment. At present her sleep schedule is from between 9 and 11 p.m. to between 3 and 5 a.m. basically 7 days a week. No problems with falling asleep, although she has a TV set in the bedroom. She usually sleeps on the back position with loud snoring, episodes of stopped breathing during sleep and awakenings from sleep 2 times with nocturia. In the morning the patient wakes up tired and sometimes has episodes of sleepiness. [place] Sleepiness Scale is 6. She has problems with memory, concentration, irritability, depression and anxiety. At night she also has episodes of panic attack and palpitations and sweating. PAST MEDICAL HISTORY: Positive for hypertension, AV block 3, hyperlipidemia, hypothyroidism, acid reflux. PAST SURGICAL HISTORY: Permanent pacemaker insertion in 2017, hysterectomy in 2013, umbilical hernia in 1968, left breast implant 2012. MEDICATIONS: 1. Lasix 40 mg once a day. 2. Aspirin 81 mg once a day. 3. Amlodipine 5 mg twice a day. 4. Metoprolol 100 mg once a day. 5. Synthroid 150 mcg once a day. 6. Rosuvastatin 5 mg once a day. 7. Pantoprazole 20 mg once a day. 8. Potassium supplement 20 mEq. SOCIAL HISTORY: Positive for smoking about one pack a day for 40 years. Alcohol consumption: None at the present time. FAMILY HISTORY: Stroke, cancer. REVIEW OF SYSTEMS: Multiple awakenings from sleep, tiredness, sleepiness during the day. Loud snoring. PHYSICAL EXAMINATION: GENERAL: A pleasant -[place] lady without distress. VITAL SIGNS: BP 124/76, HR 73, height 5 feet 5 inches, weight 269.4, temperature 98.4, oxygen saturation at room air 100%. HEENT: PERRLA, EOMI. Evaluation of oropharynx showed tongue protrudes midline. Low position of soft palate. NECK: Supple. No JVD. Thyroid is not palpable. Neck measures 16 inches in circumference. LUNGS: Clear to percussion and to auscultation. Good air exchange. No wheezing or rhonchi. HEART: S1, S2 regular. No murmurs, gallops or rubs. ABDOMEN: Obese. EXTREMITIES: No clubbing or cyanosis. CHIEF CREDIT OFFICER: Awake, alert, and oriented X3. Cranial nerves 2 to 7 intact. There is no fasciculation or atrophy. noted. No focal deficits observed. IMPRESSION: 1. History of obstructive sleep apnea diagnosed about 10 years ago. Patient was on treatment with CPAP but stopped therapy several years ago. She has awakenings from sleep, episodes of sleepiness during the day, small oropharyngeal air space, big neck; obstructive sleep apnea syndrome. 2. Obesity. BMI 44.7. 3. Hypertension. 4. AV block 3, status post permanent pacemaker insertion. 5. Hypothyroidism. 6. Hyperlipidemia. 7. Acid reflux. 8. Status post hysterectomy. 9. Status post umbilical hernia. 10.Status post left breast implant. 11.Forty pack/years of smoking. PLAN: 1. Home sleep apnea test for re-evaluation of patient's breathing during sleep at the present time. 2. Prescription for all necessary CPAP supplies, including mask, tube, filters. 3. I reviewed results of the previous sleep study which was done in 2010 and showed moderate obstructive sleep apnea-hypopnea syndrome with apnea-hypopnea index 21.5. I checked her CPAP unit also. It is at the level of pressure 12. The patient will restart to use her CPAP equipment and should use it every night. 4. Losing weight. 5. No driving if feeling sleepiness. 6. Sleep hygiene with regular time in bed for 7-1/2 to 8 hours. Thank you very much for allowing me to participate in the management of your patient. Sincerely, Collins Modi MD, PhD, FAASM Diplomat of [employer] [facility] [place] MMODL / IJN: [id number] /
== END ==
LOC: SLEEP 13:11
PROVIDERS: ATTEND Internal Medicine
DX: G47.33 Obstructive sleep apnea (adult) (pediatric) (principal); E66.9 Obesity, unspecified; I10 Essential (primary) hypertension; I44.30 Unspecified atrioventricular block; E03.9 Hypothyroidism, unspecified; F17.200 Nicotine dependence, unspecified, uncomplicated; E78.5 Hyperlipidemia, unspecified; K21.9 Gastro-esophageal reflux disease without esophagitis; Z68.41 Body mass index [BMI] 40.0-44.9, adult; Z79.899 Other long term (current) drug therapy; Z79.890 Hormone replacement therapy; Z90.710 Acquired absence of both cervix and uterus; Z98.890 Other specified postprocedural states; Z98.82 Breast implant status; Z95.0 Presence of cardiac pacemaker
CPT/HCPCS: 99211

== ENCOUNTER → 2020-12-29 | Outpatient (CLI) | payer MEDICAID ==
[2020-12-29 19:55] LABS: Basophils # (A) 0.03 X 10*3/uL (0.00-0.10); Basophils % (A) 0.4 %; Eosinophils # (A) 0.16 X 10*3/uL (0.04-0.35); Eosinophils % (A) 2.2 %; HCT 44.8 % (37.2-46.3); HGB 13.1 g/dL (12.0-15.0); Lymphocytes % (A) 44.8 %; MCH 26.7 pg (27.0-32.0); MCHC 29.2 g/dL (32.0-37.0); MCV 91.4 fL (80.0-97.0); Mean Platelet Volume 12.2 fL (9.5-12.2); Monocytes # (A) 0.43 X 10*3/uL (0.20-1.00); Neutrophils # (A) 3.31 X 10*3/uL (1.80-7.70); Neutrophils % (A) 46.3 %; Platelet Count 256 X 10*3/uL (140-440); RDW 14.1 % (11.5-14.5); WBC 7.15 X 10*3/uL (4.50-10.00)
[2020-12-30 16:08] LABS: African American GFR (CKD) 81.7 (60.0-200.0); Anion Gap 14.6 mmol/L (4.00-12.00); BUN/Creat Ratio 15.56 Ratio (12.00-20.00); Calcium 10.2 mg/dL (8.7-10.3); Carbon Dioxide 26.4 mmol/L (21.6-31.8); Chol/HDL Ratio 5.84; LDL Cholesterol,Calculated 151.8 mg/dL (0.0-131.0); Magnesium 2.1 mg/dL (1.5-2.4); Non-African American GFR(CKD) 70.5 (60.0-200.0); Potassium 4.2 mmol/L (3.5-5.5); VLDL Calculation 32.2 mg/dL (5.00-40.00)
[2020-12-30 16:15] LABS: T4, Free (Free Thyroxine) 1.4 ng/dL (0.80-1.80)
== END | disposition home or self-care (01) ==
LOC: LABWHC1 09:54
PROVIDERS: ATTEND Family Medicine
DX: E03.9 Hypothyroidism, unspecified (principal); E55.9 Vitamin D deficiency, unspecified; I10 Essential (primary) hypertension; E66.9 Obesity, unspecified; E78.5 Hyperlipidemia, unspecified
CPT/HCPCS: 36415; 80048; 80061; 82306; 83735; 84439; 84443; 84450; 84460; 85025

== ENCOUNTER → 2021-05-06 | Outpatient (CLI) | payer MEDICAID ==
[2021-05-07 08:28] LABS: ALT 20 U/L (8-44); AST 25 U/L (13-35)
== END | disposition home or self-care (01) ==
LOC: LABWHC1 14:07
PROVIDERS: ATTEND Podiatrist Foot & Ankle Surgery
DX: K74.60 Unspecified cirrhosis of liver (principal)
CPT/HCPCS: 36415; 84450; 84460

== ENCOUNTER → 2021-06-17 | Outpatient (CLI) | payer MEDICAID ==
--- NOTE | 2021-06-20 09:58 | MM ---
Reason for exam: screening (asymptomatic). Last mammogram was performed 1 year and 1 month ago. History: Patient is postmenopausal. Family history of breast cancer in mother at age 53. Benign left mammotome panel of the left breast, July 26, 2010. Took hormonal contraceptives for 5 years beginning at age 22. Physical Findings: A clinical breast exam by your physician is recommended on an annual basis and results should be correlated with mammographic findings. MG Screening Mammo w CAD Bilateral CC and MLO view(s) were taken. Prior study comparison: May 05, 2020, bilateral MG screening mammo w CAD. April 03, 2019, bilateral MG screening mammo w CAD. There are scattered fibroglandular densities. Previous mammotome biopsy in the left breast. There is no discrete abnormality. Left axillary pacemaker. ASSESSMENT: Benign, BI-RAD 2 RECOMMENDATION: Routine screening mammogram of both breasts in 1 year.
== END | disposition home or self-care (01) ==
LOC: RADMAMWWP 07:02
PROVIDERS: ATTEND Family Medicine
DX: Z12.31 Encounter for screening mammogram for malignant neoplasm of breast (principal); Z80.3 Family history of malignant neoplasm of breast; Z78.0 Asymptomatic menopausal state; R92.8 Other abnormal and inconclusive findings on diagnostic imaging of breast
CPT/HCPCS: 77067

== ENCOUNTER → 2021-12-23 | Outpatient (CLI) | payer MEDICAID ==
[2021-12-23 15:11] LABS: T4, Free (Free Thyroxine) 1.73 ng/dL (0.800-1.800)
== END | disposition home or self-care (01) ==
LOC: LABWHC1 08:22
PROVIDERS: ATTEND Internal Medicine
DX: E03.9 Hypothyroidism, unspecified (principal); E55.9 Vitamin D deficiency, unspecified
CPT/HCPCS: 36415; 82306; 84439; 84443

== ENCOUNTER → 2022-06-10 | Outpatient (CLI) | payer MEDICAID ==
[2022-06-10 18:02] LABS: T4, Free (Free Thyroxine) 1.9 ng/dL (0.800-1.800)
== END | disposition home or self-care (01) ==
LOC: LABWHC1 09:21
PROVIDERS: ATTEND Internal Medicine Interventional Cardiology
DX: E78.2 Mixed hyperlipidemia (principal)
CPT/HCPCS: 36415; 84439; 84443

== ENCOUNTER 2022-12-18 18:06 | Emergency (ER) | payer MEDICAID ==
[2022-12-18] MEDS ORDERED: LIDOCAINE 5% PATCH TOPICAL STA (18:58)
[2022-12-18] MEDS ORDERED: KETOROLAC 15 MG/ML 1 ML VIAL IM STA (18:58)
--- NOTE | 2022-12-18 19:43 | XR ---
EXAMINATION TYPE: XR lumbar spine 2 or 3V DATE OF EXAM: 12/18/2022 COMPARISON: 04/19/2015 HISTORY: Left lumbar spine pain TECHNIQUE: Three-view lumbar spine FINDINGS: There are 5 lumbar-type vertebral bodies. Pedicles are intact. Vertebral body heights are p reserved. Alignment is preserved. There is progressive loss of disc height to the L3-4 level. Some milder loss of disc height is eviden t at L4-5. These are progressive from the comparison study. Remaining disc heights are preserved. IMPRESSION: 1. Interval loss of disc height at L3-4 and L4-5.
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
[2022-12-18 20:19] VITALS: BP 158/85; PULSE 73; RESP 20; TEMP 97.5
== END 2022-12-18 20:19 | disposition home or self-care (01) ==
LOC: EC 18:06
DX: S39.012A Strain of muscle, fascia and tendon of lower back, initial encounter (principal); I10 Essential (primary) hypertension; I25.10 Atherosclerotic heart disease of native coronary artery without angina pectoris; J43.9 Emphysema, unspecified; E03.9 Hypothyroidism, unspecified; E78.5 Hyperlipidemia, unspecified; K21.9 Gastro-esophageal reflux disease without esophagitis; Z79.82 Long term (current) use of aspirin; Z79.890 Hormone replacement therapy; Z79.899 Other long term (current) drug therapy; Z95.0 Presence of cardiac pacemaker; W22.8XXA Striking against or struck by other objects, initial encounter
CPT/HCPCS: 72100; 99284; 96372; J1885

== ENCOUNTER → 2022-12-28 | Outpatient (CLI) | payer MEDICAID ==
[2022-12-28 16:25] LABS: T4, Free (Free Thyroxine) 1.86 ng/dL (0.800-1.800)
== END | disposition home or self-care (01) ==
LOC: LABWHC1 07:44
PROVIDERS: ATTEND Internal Medicine
DX: E03.9 Hypothyroidism, unspecified (principal)
CPT/HCPCS: 36415; 84439; 84443

== ENCOUNTER → 2023-03-13 | Outpatient (CLI) | payer MEDICAID ==
--- NOTE | 2023-03-14 19:43 | CT ---
EXAMINATION TYPE: CT lumbar spine wo con DATE OF EXAM: 03/13/2023 COMPARISON: None HISTORY: Radiculopathy, back pain, injury CT DLP: 1438.20 mGycm CONTRAST: None TECHNIQUE: CT of the lumbar spine is performed on a spiral scan at 3 mm thick sections. Reconstructed images are performed in the coronal and sagittal planes. FINDINGS: Vacuum disc phenomenon is present at L2-3 L3-4 and L4-5. T12-L1 vacuum disc phenomenon is also noted. There is narrowing of disc height through these levels. Posterior disc space narrowing is also noted L5-S1 and diffusely L1-2. T12-L1: No focal disc herniation or significant disc bulge is evident. No spinal canal stenosis or neural foraminal stenosis is present. L1-L2: No focal disc herniation or significant disc bulge is evident. No spinal canal stenosis or n eural foraminal stenosis is present L2-L3: Mild broad-based disc bulge with anterior thecal site flattening. No AP spinal canal stenosis is present. Neural foramen are patent. Facet hypertrophy is present L3-L4: Broad-based disc bulge appears to be present with moderate anterior thecal sac compression. AP spinal canal stenosis is not present. Foraminal narrowing is present greater on the right. L4-L5: Central ligament calcification is present. Mild disc bulges anterior thecal sac flattening. No AP spinal canal stenosis is present. Facet hypertrophy is present. Severe Foraminal narrowing is pre sent bilaterally. L5-S1: Mild disc bulge is present. No thecal sac compression is evident. Severe left and right forami nal stenosis is present. Correlate with radicular symptoms. Vertebral alignment appears normal. Vertebral body heights are preserved. IMPRESSION: 1. Disc bulging present L2-3 through L5-S1 with mild anterior thecal sac compression. No spinal canal stenosis present. 2. Multilevel foraminal stenosis greater in the lower lumbar spine. Greatest narrowing appears to be present L4-5 bilaterally. 3. Multilevel degenerative disc changes and vacuum disc phenomenon. 4. Consider follow-up MRI
== END | disposition home or self-care (01) ==
LOC: RADCTMAIN 18:37
PROVIDERS: ATTEND Family Medicine
DX: M51.16 Intervertebral disc disorders with radiculopathy, lumbar region (principal); M99.73 Connective tissue and disc stenosis of intervertebral foramina of lumbar region
CPT/HCPCS: 72131

== ENCOUNTER → 2023-04-17 | Outpatient (CLI) | payer MEDICAID ==
--- NOTE | 2023-04-17 12:04 | CA ---
Stress Echo Report Janey Wu Age: 63 Gender: F : 1960 Exam Date: 04/17/2023 10:44 Exam Location: [facility] Stress Ht (in): 64 Wt (lb): 260 Ordering Physician: Chris Romo MD ([id number]) Referring Physician: CHRIS ROMO,, Operation Research Analyst: Shelton Shipley Technologist Procedure CPT: Indication: R07.9 CHEST PAIN R06.02 SOB ICD-9 Codes: Rhythm: Patient History: Cardiac Medications: Medications in past 24 hours: Contrast: N/A Stress Results Protocol: Nima Total dose(mL): Exercise Duration (min:sec): Max ST Depression (mm): Angina Score: Soto Score: METS: 6.2 Resting HR: 67 Resting BP: 115 / 58 Peak HR: 130 Peak BP: / 76 Max Predicted HR: 159 82 % Max Predicted HR Target HR: 135 Double Product: Stress Summary: BP Response: Reason for Termination: MAX EXERTION Cardiac Symptoms: FATIGUE ECG Analysis Resting ECG: Stress ECG: Arrhythmia: Echo Analysis Resting Echo: Peak Echo Analysis: MEASUREMENTS (Male/Female) Normal Values CONCLUSIONS Patient underwent exercise stress echo with a Nima protocol treadmill stress test. Patient exercised into Stage 2 for a total of 4 minutes and 24 seconds reaching a total of 6.2 METS. Patient's maximum heart rate was 1:30 which represented 81 % age-predicted maximum heart rate. Stress EKG portion: At baseline patient's EKG showed atrial sensed, ventricular paced rhythm with nonspecific right bundle branch morphology and minimal ST depressions. At peak exercise, EKG showed no significant change from baseline. Stress echo portion: 2-D echocardiogram was performed in the parasternal long, personal short, apical 2 and apical four-chamber views at rest, peak exercise and in recovery. At baseline, echocardiogram showed left ventricular ejection fraction 55% without wall motion abnormalities. With peak exercise, echocardiogram shows improvement in left ventricular ejection fraction, increase contractility, decrease in left ventricular end systolic dimension without wall motion abnormalities consistent with a normal response to exercise. Conclusions: 1. Technically nondiagnostic stress echo given the inability to reach 85% maximum predicted heart rate, may be in part related to pacemaker 2. Nondiagnostic stress EKG portion secondary baseline EKG abnormalities 3. However at 81% maximum predicted heart rate normal stress echo portion without inducible ischemia 4. Poor exercise capacity. Dr. Mateo Wu DO (Electronically Signed) Final Date: 17 April 2023 12:03
== END | disposition home or self-care (01) ==
LOC: RADNMMAIN 09:52
PROVIDERS: ATTEND Internal Medicine Interventional Cardiology
DX: R07.9 Chest pain, unspecified (principal); R06.02 Shortness of breath
CPT/HCPCS: 93351

== ENCOUNTER → 2023-05-18 | Day surgery (SDC) | payer MEDICAID ==
[~2023-05-18] MED LIST changes: -LACTATED RINGERS 1,000 ML IV SCH; -LIDOCAINE 1% 20 ML VIAL (10MG/ML) FOR IV START INTRADERMA PRN; +diazePAM 5 MG TAB PO STA
[2023-05-18 08:49] VITALS: RESP 16; TEMP 97.9
--- NOTE | 2023-05-18 10:17 | FL ---
EXAMINATION TYPE: FL myelogram lumbosacral DATE OF EXAM: 05/18/2023 10:00 AM HISTORY: Lower extremity pain and numbness Informed consent was obtained and all the patient's questions were answered. The L3-L4 level was loc alized under fluoroscopy. Standard sterile technique was utilized as well as appropriate local anest hesia 1% Lidocaine and sodium bicarbonate. Spinal needle was introduced into the thecal sac under fl uoroscopic guidance and 15CC ISOVUE-M 200 was injected. The patient tolerated the procedure well and left the department in stable condition. CT myelography is to follow. IMPRESSION: Successful myelography lumbar spine
--- NOTE | 2023-05-18 12:03 | CT ---
EXAMINATION TYPE: CT lumbar myelogram with intrathecal contrast DATE OF EXAM: 05/18/2023 COMPARISON: 03/13/2023 HISTORY: 63-year-old female M54.50 LOW BACK PAIN, M47.817 LUMBAR SPONDYLOSIS, LOWER BACK PAIN TECHNIQUE: Contiguous axial scanning of the lumbar spine performed after intrathecal administration o f contrast material. Please refer to myelogram injection report of the same day for further details. Coronal/sagittal reconstructions performed. CT DLP: 8.50 mGycm Automated exposure control for dose reduction was used. FINDINGS: Conus medullaris is normal. Vertebral body heights are preserved and alignment is maintained. Moderate to severe degenerative disc disease throughout with narrowed, desiccated, and bulging discs. Some ligamentum flavum thickening and mild facet arthropathy mid to lower lumbar spine. There appears to be underlying congenital spinal canal narrowing in the mid lumbar spine with AP meri l dimension of 1.2 cm. However, the superimposed bulging disc contribute to overall mild spinal canal stenosis at L2-L3 and L4-L5. More moderate at L3-L4. This results in some slight redundancy in the cauda equina nerve roots. On the right, changes of both thin moderate neural foraminal stenosis at both L3-L4 and L4-L5. Mild L 2-L3 and L5-S1. On the left, changes in both in moderate neuroforaminal stenoses at L3-L4 and L4-L5. More moderate to severe at L5-S1. Mild at L2-L3. IMPRESSION: 1. MODERATE TO SEVERE DEGENERATIVE DISC DISEASE SUPERIMPOSED ON A CONGENITAL SPINAL CANAL NARROWING ( NOORVIK AP CANAL DIMENSION OF 1.2 CM IN THE MID LUMBAR SPINE). 2. CHANGES RESULT IN OVERALL MODERATE SPINAL CANAL STENOSIS AT L3-L4 AND MILD AT BOTH L2-L3 AND L4-L5 . THE SPINAL CANAL NARROWING RESULTS IN SOME SECONDARY REDUNDANCY OF THE CAUDA EQUINA NERVE ROOTS. 3. ALONG WITH MILD FACET ARTHROPATHY, THERE IS VARIABLE NEURAL FORAMINAL STENOSES OUTLINED ABOVE. MODERATE ON BOTH SIDES AT L3-L4 AND L4-L5. POSSIBLY MODERATE TO SEVERE ON THE LEFT AT L5-S1.
[2023-05-18 13:46] VITALS: BP 131/72; PULSE 55
== END ==
LOC: RADPROMAIN 07:32
PROVIDERS: ATTEND Orthopaedic Surgery
DX: M47.816 Spondylosis without myelopathy or radiculopathy, lumbar region (principal); M48.061 Spinal stenosis, lumbar region without neurogenic claudication; M51.36 Other intervertebral disc degeneration, lumbar region
CPT/HCPCS: 62304; 72132; 36415; Q9966; Q9967

== ENCOUNTER → 2023-07-26 | Outpatient (CLI) | payer MEDICAID ==
[2023-07-26 15:05] LABS: Basophils # (A) 0.04 X 10*3/uL (0.00-0.10); Basophils % (A) 0.5 %; Eosinophils # (A) 0.12 X 10*3/uL (0.04-0.35); Eosinophils % (A) 1.5 %; HCT 44.5 % (37.2-46.3); HGB 13.3 g/dL (12.0-15.0); Lymphocytes # (A) 3.41 X 10*3/uL (0.90-5.00); Lymphocytes % (A) 42.7 %; MCH 26.6 pg (27.0-32.0); MCHC 29.9 g/dL (32.0-37.0); Mean Platelet Volume 11.8 FL (9.5-12.2); Monocytes # (A) 0.66 X 10*3/uL (0.20-1.00); Monocytes % (A) 8.3 %; NRBC Per 100 WBC 0 X 10*3/uL (0.00-0.01); Neutrophils # (A) 3.72 X 10*3/uL (1.80-7.70); Neutrophils % (A) 46.6 %; Platelet Count 227 X 10*3/uL (140-440); WBC 7.98 X 10*3/uL (4.50-10.00)
[2023-07-26 15:43] LABS: Chol/HDL Ratio 6.09 Ratio; LDL Cholesterol,Calculated 144.1 mg/dL (0.0-131.0)
[2023-07-26 15:44] LABS: ALT 31 U/L (8-44); AST 25 U/L (13-35); BUN/Creat Ratio 17.12 Ratio (12.00-20.00); Blood Urea Nitrogen 13.7 mg/dL (9.0-27.0); Calcium 9.9 mg/dL (8.7-10.3); Carbon Dioxide 25.7 mmol/L (21.6-31.8); Chloride 104 mmol/L (96-109); Glucose 90 mg/dL (70-110); Sodium 143 mmol/L (135-145); T4, Free (Free Thyroxine) 1.67 ng/dL (0.80-1.80)
== END | disposition home or self-care (01) ==
LOC: LABWHC1 08:59
PROVIDERS: ATTEND Family Medicine
DX: E78.5 Hyperlipidemia, unspecified (principal); E03.9 Hypothyroidism, unspecified; E55.9 Vitamin D deficiency, unspecified
CPT/HCPCS: 36415; 80048; 80061; 82306; 84439; 84443; 84450; 84460; 85025

== ENCOUNTER → 2023-11-13 | Outpatient (CLI) | payer MEDICAID ==
[2023-11-14 02:55] LABS: HCT 44.2 % (37.2-46.3); HGB 13.4 g/dL (12.0-15.0); MCH 27.3 pg (27.0-32.0); MCHC 30.3 g/dL (32.0-37.0); Mean Platelet Volume 12.8 FL (9.5-12.2); NRBC Per 100 WBC 0 X 10*3/uL (0.00-0.01); Platelet Count 244 X 10*3/uL (140-440); RBC 4.91 X 10*6/uL (4.10-5.20)
[2023-11-14 03:25] LABS: Blood Urea Nitrogen 11.7 mg/dL (9.0-27.0); Chloride 103 mmol/L (96-109); Potassium 4.1 mmol/L (3.5-5.5); Sodium 142 mmol/L (135-145)
== END | disposition home or self-care (01) ==
LOC: LABPAT 16:16
PROVIDERS: ATTEND Internal Medicine Clinical Cardiac Electrophysiology
DX: Z01.812 Encounter for preprocedural laboratory examination (principal); I25.10 Atherosclerotic heart disease of native coronary artery without angina pectoris; Z95.0 Presence of cardiac pacemaker; E78.5 Hyperlipidemia, unspecified
CPT/HCPCS: 36415; 80051; 82565; 84520; 85027

== ENCOUNTER 2023-11-22 10:53 | Day surgery (SDC) | payer MEDICAID ==
[~2023-11-22 10:53] MED LIST changes: +LACTATED RINGERS 1,000 ML IV SCH; +SODIUM CHLORIDE 0.9% 1,000 ML IV SCH; +ceFAZolin 1 GM in SODIUM CHLORIDE 0.9% IRRIG BTL 250 ML IRRIGATION PRN; -diazePAM 5 MG TAB PO STA
[2023-11-22] MEDS: SODIUM CHLORIDE 0.9% 500 ML 500 ML IV ONE (11:20)
[2023-11-22 11:44] VITALS: RESP 16; TEMP 97.8
[2023-11-22] MEDS ORDERED: fentaNYL (PF) 50 MCG/ML 2 ML AMP ONE (13:12)
[2023-11-22] MEDS ORDERED: PROPOFOL 10 MG/ML 20 ML VIAL IV ONE (13:12)
[2023-11-22] MEDS ORDERED: MIDAZOLAM 2 MG/2 ML VIAL ONE (13:12)
[2023-11-22] MEDS ORDERED: LIDOCAINE 1% INJ 10MG/ML (20 ML MDV) ONE (13:26)
[2023-11-22] MEDS: LIDOCAINE 1% INJ 10MG/ML (20 ML MDV) SQ ONE (13:45)
[2023-11-22] MEDS ORDERED: ACETAMINOPHEN TAB 325 MG TAB PO PRN (14:33)
--- NOTE | 2023-11-22 14:49 | P.EPPROC ---
- EP Procedure Note Electrophysiology Procedure Note: Diagnosis Bradycardia, secondary to complete heart block standard pacemaker will result in RV pacing >40% Patient has a biventricular pacemaker in situ which is at MISHA secondary to normal battery depletion Procedure LV/ biventricular pacemaker generator change Details Patient was brought to the EP lab in a fasting state. Written informed consent was obtained prior to the procedure. Conscious sedation provided by anesthesia team IV antibiotics administered. Local anesthesia administered. A 4 cm incision made in the pectoral area. Subfascial pocket accessed. Old generator explanted Partial capsulectomy performed Atrial lead chronic position the right atrial appendage. P waves 2.5 mV, pacing threshold 0.8 V at point 4 ms and pacing impedance 551 ohms Model #4574 RV lead position in the RV no R waves complete heart block, pacing threshold 1.25 V at point 4 ms and pacing impedance of 456 ohms. LV lead thresholds 2.5 V at 1.5 ms, P4-Can. Pace impedance 475 ohms New Biventricular pacemaker device connected to the leads and placed in the subfascial pocket Antibiotic pouch placed Patient tolerance the procedure well without acute complications Pacing parameters DDDR, 50-130 with a paced AV delay of 170 ms Patient tolerated procedure well without any acute complications
[2023-11-22] MEDS ORDERED: ACETAMINOPHEN IV (For NPO) 1,000 MG in EMPTY BAG 1 BAG IVPB ONE (16:00)
[2023-11-22 17:32] VITALS: BP 125/66; PULSE 62
== END 2023-11-22 17:56 | disposition home or self-care (01) ==
LOC: CATHEP 10:53
PROVIDERS: ATTEND Internal Medicine Clinical Cardiac Electrophysiology
DX: I25.10 Atherosclerotic heart disease of native coronary artery without angina pectoris (principal); I44.2 Atrioventricular block, complete; I48.91 Unspecified atrial fibrillation; I10 Essential (primary) hypertension; E78.5 Hyperlipidemia, unspecified; F17.210 Nicotine dependence, cigarettes, uncomplicated; J44.9 Chronic obstructive pulmonary disease, unspecified; G47.33 Obstructive sleep apnea (adult) (pediatric); E07.9 Disorder of thyroid, unspecified; K21.9 Gastro-esophageal reflux disease without esophagitis; Z95.0 Presence of cardiac pacemaker; Z79.82 Long term (current) use of aspirin; Z79.890 Hormone replacement therapy; Z79.01 Long term (current) use of anticoagulants; Z98.890 Other specified postprocedural states; Z79.899 Other long term (current) drug therapy
CPT/HCPCS: 33229; C2621; J2250; J0690; J2001; J3010; J2704

== ENCOUNTER → 2023-12-11 | Outpatient (CLI) | payer MEDICAID ==
[2023-12-11 18:37] LABS: MCH 26.5 pg (27.0-32.0); MCHC 29.8 g/dL (32.0-37.0); Mean Platelet Volume 11.4 FL (9.5-12.2); NRBC Per 100 WBC 0 X 10*3/uL (0.00-0.01); Platelet Count 259 X 10*3/uL (140-440); RBC 5.28 X 10*6/uL (4.10-5.20); RDW 13.8 % (11.5-14.5)
[2023-12-11 19:22] LABS: BUN/Creat Ratio 14.67 Ratio (12.00-20.00); Blood Urea Nitrogen 13.2 mg/dL (9.0-27.0); Calcium 10.1 mg/dL (8.7-10.3); Chloride 100 mmol/L (96-109); Glucose 102 mg/dL (70-110); Potassium 4.1 mmol/L (3.5-5.5); Sodium 143 mmol/L (135-145)
== END | disposition home or self-care (01) ==
LOC: LABWHC1 12:11
PROVIDERS: ATTEND Family Medicine
DX: E66.01 Morbid (severe) obesity due to excess calories (principal)
CPT/HCPCS: 36415; 80048; 83036; 85027

== ENCOUNTER → 2024-02-02 | Outpatient (CLI) | payer MEDICAID ==
[2024-02-02 12:50] LABS: ALT 49 U/L (8-44); AST 40 U/L (13-35); Chol/HDL Ratio 4.12 Ratio; LDL Cholesterol,Calculated 79.7 mg/dL (0.0-131.0)
== END | disposition home or self-care (01) ==
LOC: LABWHC1 08:18
PROVIDERS: ATTEND Internal Medicine Interventional Cardiology
DX: E78.2 Mixed hyperlipidemia (principal)
CPT/HCPCS: 36415; 80061; 84450; 84460

== ENCOUNTER → 2024-06-06 | Outpatient (CLI) | payer MEDICAID ==
--- NOTE | 2024-06-13 10:57 | MM ---
Reason for Exam: Screening (asymptomatic). Last mammogram was performed 1 year(s) and 9 month(s) ago. Patient History: Menarche at age 15. First Full-Term at age 21. Hysterectomy at age 52. Postmenopausal. Patient has history of breast feeding. Hormonal Contraceptives for 5 years from age 22 until age 27. 07/26/2010, Benign Core Biopsy on the left side. Mother had breast cancer, age 53. Risk Values: Noemi 5 year model risk: 3.4%. NCI Lifetime model risk: 14.6%. Prior Study Comparison: 05/05/2020 Bilateral Screening Mammogram, [facility]. 06/17/2021 Bilateral Screening Mammogram, [facility]. 09/19/2022 Bilateral MG 3D screening mammo w/cad, [facility]. Tissue Density: The breasts are almost entirely fatty. Findings: Analyzed By CAD. Cardiac conduction device obscures the left axilla. Right breast: There is no suspicious group of microcalcifications or new suspicious mass. Left breast: There is no suspicious group of microcalcifications or new suspicious mass. Overall Assessment: Negative, BI-RAD 1 Management: Screening Mammogram of both breasts in [address] [facility] will attempt to contact patient to return for supplemental views and ultrasound if indicated. Patient should continue monthly self-breast exams. A clinical breast exam by your physician is recommended on an annual basis. This exam should not preclude additional follow-up of suspicious palpable abnormalities. Note on Noemi scores and lifetime risk: 1. A Noemi score greater than 3% is considered moderate risk. If this is the case, consider specialist referral to assess eligibility for a risk reducing agent. 2. If overall lifetime risk for the development of breast cancer is 20% or higher, the patient may qualify for future screening with alternating mammogram and breast MRI. [facility], , 06/13/2024 10:54 AM. Electronically signed and approved by: Sam Roldan DO
== END | disposition home or self-care (01) ==
LOC: RADMAMWWP 06:50
PROVIDERS: ATTEND Family Medicine
DX: Z12.31 Encounter for screening mammogram for malignant neoplasm of breast (principal); Z78.0 Asymptomatic menopausal state; Z80.3 Family history of malignant neoplasm of breast
CPT/HCPCS: 77067

== ENCOUNTER → 2024-11-08 | Outpatient (CLI) | payer MEDICAID ==
[2024-11-08 13:50] LABS: Appearance,Urine Turbid (Clear); Bilirubin,Urine Negative (Negative); Blood,Urine Negative (Negative); Color,Urine Yellow (Yellow); Ketones,Urine Trace (Negative); Nitrite,Urine Negative (Negative); PH, Urine 5.5; Specific Gravity,Urine 1.029 (1.001-1.030)
[2024-11-08 13:57] LABS: Bacteria,Urine 1+ (None Seen)
[2024-11-08 14:12] LABS: Blood Urea Nitrogen 13.5 mg/dL (9.0-27.0); Carbon Dioxide 25.5 mmol/L (21.6-31.8); Chloride 106 mmol/L (96-109); Chol/HDL Ratio 4.45 Ratio; Glucose 106 mg/dL (70-110); LDL Cholesterol,Calculated 98.5 mg/dL (0.0-131.0); Potassium 3.9 mmol/L (3.5-5.5); Sodium 144 mmol/L (135-145)
[2024-11-08 14:13] LABS: ALT 33 U/L (8-44); AST 29 U/L (13-35); Albumin 4.3 g/dL (3.8-4.9); Albumin/Globulin Ratio 1.72 Ratio (1.60-3.17); Alkaline Phosphatase 133 U/L (41-126); Calcium 9.8 mg/dL (8.7-10.3); Globulin 2.5 g/dL (1.6-3.3); T4, Free (Free Thyroxine) 1.82 ng/dL (0.80-1.80); Total Bilirubin 0.3 mg/dL (0.3-1.2); Total Protein 6.8 g/dL (6.2-8.2)
[2024-11-08 14:17] LABS: Basophils # (A) 0.04 X 10*3/uL (0.00-0.10); Basophils % (A) 0.5 %; Eosinophils # (A) 0.16 X 10*3/uL (0.04-0.35); Eosinophils % (A) 2.1 %; HCT 43.9 % (37.2-46.3); Lymphocytes # (A) 3.31 X 10*3/uL (0.90-5.00); Lymphocytes % (A) 44.3 %; MCH 26.7 pg (27.0-32.0); MCHC 29.6 g/dL (32.0-37.0); MCV 90.3 FL (80.0-97.0); Mean Platelet Volume 12.1 FL (9.5-12.2); NRBC Per 100 WBC 0 X 10*3/uL (0.00-0.01); Neutrophils # (A) 3.35 X 10*3/uL (1.80-7.70); Neutrophils % (A) 44.8 %; Platelet Count 223 X 10*3/uL (140-440); RBC 4.86 X 10*6/uL (4.10-5.20); WBC 7.48 X 10*3/uL (4.50-10.00)
== END | disposition home or self-care (01) ==
LOC: LABWHC1 08:32
PROVIDERS: ATTEND Family Medicine
DX: Z00.00 Encounter for general adult medical examination without abnormal findings (principal); E03.9 Hypothyroidism, unspecified; R73.9 Hyperglycemia, unspecified
CPT/HCPCS: 36415; 80053; 80061; 81001; 82306; 83036; 84439; 84443; 85025

== ENCOUNTER 2025-01-14 12:53 | Day surgery (SDC) | payer MEDICAID ==
[2025-01-14 13:30] VITALS: TEMP 97
[2025-01-14] MEDS: IV FLUID CONTINUATION 1,000 ML IV ONE (13:34)
[2025-01-14] MEDS: LACTATED RINGERS 1,000 ML IV SCH (13:34)
[2025-01-14] MEDS ORDERED: PROPOFOL 10 MG/ML 20 ML VIAL IV ONE (13:59)
--- NOTE | 2025-01-14 14:28 | P.PCN ---
Date of Procedure: 01/14/25 Procedure(s) Performed: BRIEF HISTORY: Patient is a 64-year-old pleasant -[place] scheduled for an elective colonoscopy as a part of screening for prior history of colon polyps. Last colonoscopy was in 2019 and was noted to have a tubular adenoma. PROCEDURE PERFORMED: Colonoscopy with biopsy. PREOPERATIVE DIAGNOSIS: Screening for history of colon polyps. IV sedation per Anesthesia. PROCEDURE: After informed consent was obtained, the patient, was brought into the endoscopy unit. IV sedation was administered by Anesthesia under continuous monitoring. Digital rectal examination was normal. Initially the Olympus CF-160 flexible video colonoscope was then inserted in the rectum, gradually advanced into the right colon without any difficulty. Despite multiple attempts I was unable to advance the scope into the base of the cecum. Careful examination was performed as the scope was gradually being withdrawn. Ileocecal valve was visualized and appeared normal. Prep was excellent. The visualized portions of the cecum appeared normal. In the ascending colon there was a 4 mm sessile polyp removed by cold biopsy. Rest of the ascending colon, transverse colon, descending colon, sigmoid colon, and rectum appeared normal. Scattered sigmoid diverticulosis. Retroflexion was performed in the rectum and no lesions were seen. The patient tolerated the procedure well. IMPRESSION: 4 millimeter ascending colon polyp status post cold biopsy Scattered sigmoid diverticulosis. RECOMMENDATIONS: Findings of this examination were discussed with the patient as well as her family.. She was advised to follow with the biopsy results. If the biopsy reveals adenoma she can have repeat colonoscopy in 5 years.
[2025-01-14 14:47] VITALS: BP 125/71; PULSE 73; RESP 16
== END 2025-01-14 15:04 | disposition home or self-care (01) ==
LOC: ORWHC2ENDO 12:53
PROVIDERS: ATTEND Internal Medicine Gastroenterology
DX: Z12.11 Encounter for screening for malignant neoplasm of colon (principal); K63.5 Polyp of colon; K57.30 Diverticulosis of large intestine without perforation or abscess without bleeding; Z95.0 Presence of cardiac pacemaker; G47.33 Obstructive sleep apnea (adult) (pediatric); K21.9 Gastro-esophageal reflux disease without esophagitis; Z79.890 Hormone replacement therapy; Z79.891 Long term (current) use of opiate analgesic; Z79.899 Other long term (current) drug therapy; Z86.0101 Personal history of adenomatous and serrated colon polyps
CPT/HCPCS: 88305; 45380; J2704

== ENCOUNTER → 2025-02-04 | Outpatient (CLI) | payer MEDICAID ==
--- NOTE | 2025-02-05 14:45 | CA ---
Transthoracic Echo Report Name: Janey Wu Age: 65 Gender: F : 1960 Exam Date: 02/04/2025 12:58 Exam Location: [facility] Ht (in): 64 Wt (lb): 262 Ordering Physician: Chris Romo MD ([id number]) Attending/Referring Phys: Chris Romo MD ([id number]) [employer] Yi Alegre RDCS Procedure CPT: Indications: R06.02 SOB Cardiac Hx: Pacemaker Technical Quality: Technically difficult study Contrast 1: Definity Total Dose (mL): 2 Contrast 2: Total Dose (mL): MEASUREMENTS (Male / Female) Normal Values 2D ECHO LV Diastolic Diameter PLAX 5.0 cm 4.2 - 5.9 / 3.9 - 5.3 cm LV Systolic Diameter PLAX 3.3 cm IVS Diastolic Thickness 1.0 cm 0.6 - 1.0 / 0.6 - 0.9 cm LVPW Diastolic Thickness 1.0 cm 0.6 - 1.0 / 0.6 - 0.9 cm LV Relative Wall Thickness 0.4 RV Internal Dim ED PLAX 3.1 cm LVOT Diameter 1.7 cm Aortic Root Diameter 2.6 cm LA Systolic Diameter LX 3.9 cm 3.0 - 4.0 / 2.7 - 3.8 cm LV Diastolic Volume MOD BP 121.2 cm??? 67 - 155 / 56 - 104 cm??? LV Systolic Volume MOD BP 54.8 cm??? 22 - 58 / 19 - 49 cm??? LV Ejection Fraction MOD BP 54.8 % >= 55 % LV Cardiac Index MOD BP 1726.9 cm???/min???m??? LV Diastolic Volume MOD 4C 120.4 cm??? LV Systolic Volume MOD 4C 47.3 cm??? LV Ejection Fraction MOD 4C 60.7 % LV Cardiac Index MOD 4C 1902.3 cm???/min???m??? LV Diastolic Length 4C 8.6 cm LV Systolic Length 4C 7.9 cm LV Diastolic Volume MOD 2C 120.8 cm??? LV Systolic Volume MOD 2C 54.9 cm??? LV Ejection Fraction MOD 2C 54.6 % LV Cardiac Index MOD 2C 1715.0 cm???/min???m??? LV Diastolic Length 2C 8.5 cm LV Systolic Length 2C 6.8 cm LA Volume 54.7 cm??? 18 - 58 / 22 - 52 cm??? LA Volume Index 22.9 cm???/m??? 16 - 28 cm???/m??? DOPPLER MV Area PHT 2.7 cm??? Mitral E Point Velocity 69.1 cm/s Mitral A Point Velocity 59.4 cm/s Mitral E to A Ratio 1.2 MV Deceleration Time 277.2 ms TR Peak Velocity 242.9 cm/s TR Peak Gradient 23.6 mmHg Right Atrial Pressure 5.0 mmHg Pulmonary Artery Systolic Pressu 28.6 mmHg Right Ventricular Systolic Press 28.6 mmHg FINDINGS Left Ventricle Left ventricular ejection fraction is estimated at 50-55 %. Mildly decreased left ventricular ejection fraction. No obvious regional wall motion abnormalities. Left ventricular wall thickness normal. Right Ventricle Normal right ventricular size and function. Hypermobile interatrial septum. Right ventricular systolic pressure within normal limits. Right Atrium Normal right atrial size. Left Atrium Mildly increased left atrial volume. Mildly increased left atrial area. Mitral Valve Mitral annular calcification. No mitral stenosis. Trace mitral regurgitation. Aortic Valve Possible bicuspid aortic valve. Thickened aortic valve without stenosis. No regurgitation. Tricuspid Valve Structurally normal tricuspid valve. No tricuspid stenosis. Mild tricuspid regurgitation. Pulmonic Valve Structurally normal pulmonic valve. No pulmonic stenosis. Trace pulmonic regurgitation. Pericardium No pericardial effusion. Aorta Aortic annulus normal. CONCLUSIONS Reason: Shortness of breath on exertion Left ventricular ejection fraction in the lower limits of normal of 50-55% Normal RV size Previewed by: Dr. Fabián Peña MD (Electronically Signed) Final Date: 05 February 2025 14:45
== END | disposition home or self-care (01) ==
LOC: RADECHMAIN 12:47
PROVIDERS: ATTEND Internal Medicine Interventional Cardiology
DX: R06.02 Shortness of breath (principal); Z95.0 Presence of cardiac pacemaker
CPT/HCPCS: 93306